=== PATIENT | female | born 1935 | race Caucasian/White ===

== ENCOUNTER → 2018-04-04 14:21 | Outpatient (CLI) | payer MEDICARE, BC, SELFPAY ==
[2018-04-04 15:39] LABS: Add Manual Diff / Slide Review NO; Eosinophils Percent Auto 1.4 % (2-4); Hematocrit 36.3 % (36-46); Hemoglobin 11.7 g/dL (12.0-16.0); Lymphocytes Percent Auto 14.7 % (25-40); Mean Corpuscular HGB Conc 32.3 % (30-36); Mean Corpuscular Hemoglobin 28.9 PG (26-34); Mean Corpuscular Volume 89.6 fL (80-100); Monocytes Percent Auto 7.7 % (3-14); Neutrophils Absolute Auto 4500 /uL (3000-5900); Neutrophils Percent Auto 75.2 % (50-75); Platelet Count 313 X10^3/uL (150-400); Red Blood Cell Count 4.05 X10^6/uL (4.0-5.2)
[2018-04-04 15:40] LABS: Alanine Aminotransferase 45 IU/L (9-52); Albumin 3.7 g/dL (3.5-5.0); Albumin Globulin Ratio 1.5 (1.0-2.8); Alkaline Phosphatase 93 U/L (38-126); Aspartate Aminotransferase 33 IU/L (14-36); Bilirubin Total 0.6 mg/dL (0.2-1.3); Blood Urea Nitrogen 13 mg/dL (7-17); Calcium 8.9 mg/dL (8.4-10.2); Carbon Dioxide 29 mmol/L (22-32); Chloride 96 mmol/L (98-107); Estimated Glomerular Filt Rate > 60.0 mL/min (>60); Globulin 2.4 g/dL (1.7-4.1); Glucose 74 mg/dL (80-110); HEMOLYSIS 17 (0-50); Potassium 4.8 mmol/L (3.4-5.1); Sodium 134 mmol/L (137-145); Total Protein 6.1 g/dL (6.3-8.2)
== END ==
PROVIDERS: Family Provider Physician Assistant; PCP Physician Assistant; Visit Provider Physician Assistant
DX: E78.5 Hyperlipidemia, unspecified (principal); F17.220 Nicotine dependence, chewing tobacco, uncomplicated; I10 Essential (primary) hypertension; I25.3 Aneurysm of heart; Q25.3 Supravalvular aortic stenosis
CPT/HCPCS: 36415; 80053; 85025

== ENCOUNTER 2018-04-11 14:16 | Emergency (ER) | payer MEDICARE, BC, SELFPAY ==
[2018-04-11 14:22] VITALS: BP 110/50; PULSE 72; RESP 20; TEMP 36.4; O2SAT 95; BMI 20.3
--- NOTE | 2018-04-11 15:10 | DI.RAD.S_ITS ---
PROCEDURE: XR CHEST 1V INDICATIONS: chest pain TECHNIQUE: One view of the chest was acquired. COMPARISON: [facility], , CHEST 2 VIEW, 12/26/2012, 16:07. [facility], , CHEST 1 VIEW, 08/16/2016, 17:09. FINDINGS: Surgical changes and devices: None. Lungs and pleura: Chronic interstitial prominence. Left basilar opacities likely scar or atelectasis. No pleural effusions or pneumothorax. Mediastinum: Mediastinal contours appear normal. Heart size is normal. Severe aortic atherosclerosis. Bones and chest wall: No suspicious bony lesions. Overlying soft tissues appear unremarkable. IMPRESSION: No acute cardiopulmonary disease. Dictated by: Fany Jacobo M.D. on 04/11/2018 at 15:55 Approved by: Fany Jacobo M.D. on 04/11/2018 at 15:56
--- NOTE | 2018-04-11 15:19 | ED_ITS ---
HPI - Chest Pain General Chief Complaint: Chest Pain Stated Complaint: PAIN WITH BREATHING Time Seen by Provider: 04/11/18 14:45 Source: patient and family Mode of arrival: ambulatory Limitations: no limitations History of Present Illness HPI narrative: Patient is a 82-year-old female who presents with abdominal pain and chest pain ongoing for the last 2 days. She says that her chest pain starts in her abdomen goes up to her chest. It hurts every time she touches it. It seems to be improving and getting better. She has been having some shortness of breath but denies any now. No heart palpitations no nausea vomiting. She has stool incontinence, her niece noticed that when she was taking out the trash the stool was very black for which he is on aspirin. MD complaint: chest pain Related Data Home Medications Medication Instructions Recorded Confirmed aspirin 81 mg PO DAILY #0 10/10/16 04/11/18 diltiazem HCl 300 mg PO DAILY 04/11/18 04/11/18 lisinopril 2.5 mg PO DAILY 04/11/18 04/11/18 vit C,W-Bm-ehreb-lutein-zeaxan 1 cap PO BID 04/11/18 04/11/18 [PreserVision AREDS-2] Allergies Allergy/AdvReac Type Severity Reaction Status Date / Time diazepam [DIAZEPAM] AdvReac Severe loses Verified 04/11/18 14:28 balance easily azithromycin [AZITHROMYCIN] AdvReac Intermediate Fatigue, Verified 04/11/18 14: 28 felt run down Review of Systems Review of Systems All systems reviewed & are unremarkable except as noted in HPI and below Constitutional Denies chills, Denies fever(s), Denies lethargy and Denies weakness Cardiovascular Denies dyspnea and Denies dyspnea on exertion Respiratory Denies cough, Denies dyspnea, Denies dyspnea on exertion and Denies wheezing Gastrointestinal Gastrointestinal: Reports abdominal pain, Denies change in bowel habits, Reports loose stools, Denies nausea and Denies vomiting Genitourinary Denies hematuria, Denies flank pain, Denies urinary incontinence and Denies urinary urgency Musculoskeletal Denies back pain, Denies muscle weakness, Denies numbness and Denies tingling Integumentary/Breasts Denies pruritus, Denies erythema, Denies rash and Denies wounds Neurologic Denies numbness, Denies tingling and Denies weakness Allergic/Immunologic Denies wheezing PFSH Medical History Vascular dementia (Chronic) Stenosis of aorta (Chronic 12/28/10) Atrial septal aneurysm (Chronic 07/06/15) Essential hypertension (Chronic 07/05/16) Hyperlipidemia (Chronic) Atrial fibrillation with RVR (Chronic) Current smoker (Chronic) Chronic obstructive pulmonary disease (Chronic) Aortic stenosis (Acute) Atrial fibrillation (Acute) Atrial septal aneurysm (Acute) COPD (chronic obstructive pulmonary disease) (Acute) Essential hypertension (Acute) Hyperlipidemia (Acute) Macular degeneration (Acute) Memory deficit (Acute) Smoker (Acute) Abdominal bruit (Inactive) Aortic valve disorder (Inactive) Carotid bruit (Inactive) Heart murmur (Inactive) History of chicken pox (Inactive) History of measles (Inactive) History of mumps (Inactive) Leukoplakia (Inactive) Sebaceous cyst of labia (Inactive) Seborrheic keratosis (Inactive) Surgical History History of sinus surgery (Inactive) Family History Brother Diabetes mellitus Heart disease Social History Smoking Status: Current every day smoker Tobacco: How many years used: 60 second hand exposure: No alcohol intake: never substance use type: does not use caffeine: No Exam Initial Vital Signs Initial Vital Signs: Vital Signs Temperature 97.6 F 04/11/18 14:22 Pulse Rate 72 04/11/18 14:22 Respiratory Rate 20 04/11/18 14:22 Blood Pressure 110/50 L 04/11/18 14:22 Pulse Oximetry 95 04/11/18 14:22 GENERAL: Well-appearing, well-nourished and in no acute distress. HEENT: Head atraumatic,EOMI, pupils reactive CARDIOVASCULAR: Regular rate and rhythm without murmurs, rubs or gallops. RESPIRATORY: Breath sounds equal bilaterally, no wheezes rales or rhonchi. ABDOMEN: Soft, hyperactive bowel sounds mid epigastric an umbilical tenderness no right upper quadrant pain no guarding or rebound EXTREMITIES: Normal range of motion, no clubbing or edema. Neurovascularly intact NEUROLOGICAL: Alert and oriented x4.Normal gait and speec SKIN: Warm, dry, no laceration, no petechiae, no rashes or lesions. Course Orders Ordered: ED Orders 04/11/18 14:37 EKG-12 Lead Stat 04/11/18 14:42 Complete Blood Count AUTO DIFF Stat Comprehensive Metabolic Panel Stat Lipase Stat Partial Thromboplastin Time Stat Prothrombin Time INR Stat Troponin & CK Cardiac Panel Stat 04/11/18 15:10 XR chest 1V Stat 04/11/18 16:05 CT abdomen pelvis w con Stat Discontinued Medications Sodium Chloride (Normal Saline 0.9%) 1,000 mls @ 150 mls/hr IV CONT JOANN Last Infusion: 04/11/18 17:05 Dose: 0 mls/hr Admin: 04/11/18 15:57 Dose: 150 mls/hr Pantoprazole Sodium (Protonix) 40 mg IV NOW ONE Stop: 04/11/18 15:10 Last Admin: 04/11/18 15:57 Dose: 40 mg Vital Signs - 8 hr 04/11/18 14:22 04/11/18 16:25 Temperature 97.6 F Pulse Rate 72 57 L Respiratory Rate 20 17 Blood Pressure 110/50 L Blood Pressure [Left Arm] 154/55 H Pulse Oximetry 95 92 MDM - Chest Pain Lab Data Attestation: I reviewed the patient's lab results. Result diagrams: 04/11/18 14:42 04/11/18 14:42 Lab Results 04/11/18 04/11/18 04/11/18 Range/Units 14:42 14:42 14:42 WBC 5.9 (4.5-11.0) X10^3/uL RBC 3.82 L (4.0-5.2) X10^6/uL Hgb 11.3 L (12.0-16.0) g/dL Hct 33.8 L (36-46) % MCV 88.4 (80-100) fL MCH 29.6 (26-34) PG MCHC 33.5 (30-36) % RDW 14.9 H (11.6-14.8) % Plt Count 286 (150-400) X10^3/uL Neut % (Auto) 76.7 H (50-75) % Lymph % (Auto) 15.0 L (25-40) % [place] % (Auto) 7.0 (3-14) % Eos % (Auto) 0.5 L (2-4) % Baso % (Auto) 0.8 (0-2) % Neut # (Auto) 4600 (0896-6945) /uL PT 11.1 (10.1-12.7) SECONDS INR 1.0 (0.9-1.3) APTT 29 (26.4-36.2) SECONDS Sodium 134 L (137-145) mmol/L Potassium 4.4 (3.4-5.1) mmol/L Chloride 97 L (98-107) mmol/L Carbon Dioxide 26 (22-32) mmol/L BUN 17 (7-17) mg/dL Creatinine 0.70 (0.52-1.04) mg/dL Estimated GFR > 60.0 (>60) mL/min BUN/Creatinine Ratio 24.3 H (6-22) Glucose 181 H D (80-110) mg/dL Calcium 8.6 (8.4-10.2) mg/dL Total Bilirubin 0.6 (0.2-1.3) mg/dL AST 36 (14-36) IU/L ALT 35 (9-52) IU/L Alkaline Phosphatase 78 (38-126) U/L Total Creatine Kinase 53 (30-135) U/L CK-MB (CK-2) TNP CK-MB (CK-2) Rel Index TNP Troponin I < 0.012 (0.01-0.034) ng/mL Total Protein 5.9 L (6.3-8.2) g/dL Albumin 3.6 (3.5-5.0) g/dL Globulin 2.3 (1.7-4.1) g/dL Albumin/Globulin Ratio 1.6 (1.0-2.8) Lipase 48 (23-300) U/L Imaging Data Chest x-ray: Radiologist's impression: PROCEDURE: XR CHEST 1V INDICATIONS: chest pain TECHNIQUE: One view of the chest was acquired. COMPARISON: [facility], CHEST 2 VIEW, 12/26/2012, 16:07. [facility], CHEST 1 VIEW, 08/16/2016, 17:09. FINDINGS: Surgical changes and devices: None. Lungs and pleura: Chronic interstitial prominence. Left basilar opacities likely scar or atelectasis. No pleural effusions or pneumothorax. Mediastinum: Mediastinal contours appear normal. Heart size is normal. Severe aortic atherosclerosis. Bones and chest wall: No suspicious bony lesions. Overlying soft tissues appear unremarkable. IMPRESSION: No acute cardiopulmonary disease. Dictated by: Fany Jacobo M.D. on 04/11/2018 at 15:55 CT scan - abdomen: Radiologist's impression: ROCEDURE: CT ABDOMEN PELVIS W CON INDICATIONS: abdominal pain mid umbilical and epigastric TECHNIQUE: After the administration of intravenous contrast, 5 mm thick sections acquired from the diaphragm to the symphysis. 5 mm coronal and sagittal reformats were acquired. For radiation dose reduction, the following was used: automated exposure control, adjustment of mA and/or kV according to patient size. COMPARISON: None. FINDINGS: Image quality: Excellent. ABDOMEN: Lung bases: Mild bibasilar scarring/atelectasis are seen posteriorly. No pleural effusion or pneumothorax. Heart size is mildly enlarged, no pericardial effusion. Solid organs: Liver is normal in size and enhancement. 3 mm hypodensity involving inferior right hepatic lobe is seen, too small to characterize. Gallbladder is well distended with a 1.8 x 1.4 cm peripherally calcified stone in its dependent portion. No gross gallbladder wall thickening or pericholecystic fluid.. Biliary system is non dilated. Pancreas enhances normally. Spleen is normal in size and enhancement. No adrenal nodules. Kidneys demonstrate normal size and enhancement, without hydronephrosis. Bilateral cortical and parapelvic renal cysts are seen. Peritoneum and bowel: Bowel loops demonstrate normal wall thickness and caliber. Fecal stasis throughout colon is noted. The appendix is visualized in right lower quadrant abdomen and is normal in size and appearance. No free fluid or air. Nodes and vessels: No retroperitoneal or mesenteric adenopathy by size criteria. Aorta and inferior vena cava are normal in size. Atherosclerotic calcifications throughout normal aorta is seen. Miscellaneous: No ventral hernias. PELVIS: Genitourinary: Mild diffuse bladder wall thickening is seen, no discrete bladder wall mass. Miscellaneous: No inguinal hernias or adenopathy. Bones: No suspicious bony lesions. No vertebral body compression fractures. IMPRESSION: 1. Constipation. Normal appendix. No bowel obstruction. No free fluid or free air. 2. Cholelithiasis. No CT evidence of acute cholecystitis. 3. Mild diffuse bladder wall thickening, which may represent cystitis versus chronic outlet obstruction. No discrete bladder wall mass. No obstructing renal stone or hydronephrosis. Bilateral renal cysts. Dictated by: Wilberto Padilla M.D. on 04/11/2018 at 16:24 Approved by: Wilberto Padilla M.D. on 04/11/2018 at 16:32 ECG Data Attestation: I personally reviewed and interpreted this ECG as follows: Prior ECG tracings: available for review Interpretation: Normal sinus rhythm rate [address] changes or T-wave inversions previous EKG does show atrial fibrillation. MDM Narrative Medical decision making narrative: Abdomen was tender to touch it is re- examined no longer tender. She does have loose stools according to her niece. CT does show constipation but no sign of obstruction. Blood work within normal limits. She is ambulatory to the restroom she overall feels better she is wanting to go home. I discussed results is with patient and family. Chest pain may be related to AFib which she is now in sinus rhythm, or acid reflux. She was given some Protonix which did seem to help. Discharge Plan Departure Patient Disposition: Home Clinical Impression: Constipation, Atypical chest pain Discharge Date/Time: 04/11/18 17:04 Interventions: ED Discharge Assessment Last Done: 04/11/18 17:04 Instructions: Constipation Activity Restrictions/Additional Instructions: *You have been diagnosed with constipation, atypical chest pain *What to do: Blood work, cat scan, chest x-ray are reassuring. CT scan did suggest some constipation but no sign of obstruction normal appendix *Continue to take medications as directed *Follow up with your primary care provider in 2-3 days *Return to ER if you should have increasing pain, shortness of breath, passing out or any new, worsening or concerning symptoms Prescriptions: No Action aspirin 81 MG tablet,chewable 81 mg PO DAILY Qty: 0 RF: 0 diltiazem HCl 300 mg capsule,extended release 24hr 300 mg PO DAILY RF: 0 lisinopril 2.5 mg tablet 2.5 mg PO DAILY RF: 0 vit C,V-Wo-zjhwp-lutein-zeaxan [PreserVision AREDS-2] 578-285-58-1 mg-unit-mg- mg Capsule 1 cap PO BID RF: 0 Referrals: Evie Kim PA-C [Primary Care Provider] -
[2018-04-11 15:27] LABS: Add Manual Diff / Slide Review NO; Basophils Percent Auto 0.8 % (0-2); Eosinophils Percent Auto 0.5 % (2-4); Hematocrit 33.8 % (36-46); Hemoglobin 11.3 g/dL (12.0-16.0); Mean Corpuscular HGB Conc 33.5 % (30-36); Mean Corpuscular Hemoglobin 29.6 PG (26-34); Mean Corpuscular Volume 88.4 fL (80-100); Neutrophils Absolute Auto 4600 /uL (3000-5900); Neutrophils Percent Auto 76.7 % (50-75); Platelet Count 286 X10^3/uL (150-400); Red Blood Cell Count 3.82 X10^6/uL (4.0-5.2); Red Cell Distribution Width 14.9 % (11.6-14.8); White Blood Cell Count 5.9 X10^3/uL (4.5-11.0)
[2018-04-11 15:28] LABS: Prothrombin Time 11.1 SECONDS (10.1-12.7)
[2018-04-11 15:31] LABS: PTT Partial Thromboplastin Tim 29 SECONDS (26.4-36.2)
[2018-04-11 15:32] LABS: Alanine Aminotransferase 35 IU/L (9-52); Albumin 3.6 g/dL (3.5-5.0); Albumin Globulin Ratio 1.6 (1.0-2.8); Alkaline Phosphatase 78 U/L (38-126); Aspartate Aminotransferase 36 IU/L (14-36); BUN Creatinine Ratio 24.3 (6-22); Bilirubin Total 0.6 mg/dL (0.2-1.3); Blood Urea Nitrogen 17 mg/dL (7-17); Calcium 8.6 mg/dL (8.4-10.2); Carbon Dioxide 26 mmol/L (22-32); Chloride 97 mmol/L (98-107); Creatine Kinase 53 U/L (30-135); Estimated Glomerular Filt Rate > 60.0 mL/min (>60); Globulin 2.3 g/dL (1.7-4.1); Glucose 181 mg/dL (80-110); HEMOLYSIS < 15 (0-50); Lipase 48 U/L (23-300); Potassium 4.4 mmol/L (3.4-5.1); Sodium 134 mmol/L (137-145); Total Protein 5.9 g/dL (6.3-8.2)
[2018-04-11 15:48] LABS: Troponin I < 0.012 ng/mL (0.01-0.034)
[2018-04-11] MEDS: SODIUM CHLORIDE 0.9% 1,000 ML 150 ML IV (15:57)
[2018-04-11] MEDS: PANTOPRAZOLE 40 MG VIAL IV (15:57)
--- NOTE | 2018-04-11 16:05 | DI.CT.S_ITS ---
PROCEDURE: CT ABDOMEN PELVIS W CON INDICATIONS: abdominal pain mid umbilical and epigastric TECHNIQUE: After the administration of intravenous contrast, 5 mm thick sections acquired from the diaphragm to the symphysis. 5 mm coronal and sagittal reformats were acquired. For radiation dose reduction, the following was used: automated exposure control, adjustment of mA and/or kV according to patient size. COMPARISON: None. FINDINGS: Image quality: Excellent. ABDOMEN: Lung bases: Mild bibasilar scarring/atelectasis are seen posteriorly. No pleural effusion or pneumothorax. Heart size is mildly enlarged, no pericardial effusion. Solid organs: Liver is normal in size and enhancement. 3 mm hypodensity involving inferior right hepatic lobe is seen, too small to characterize. Gallbladder is well distended with a 1.8 x 1.4 cm peripherally calcified stone in its dependent portion. No gross gallbladder wall thickening or pericholecystic fluid.. Biliary system is non dilated. Pancreas enhances normally. Spleen is normal in size and enhancement. No adrenal nodules. Kidneys demonstrate normal size and enhancement, without hydronephrosis. Bilateral cortical and parapelvic renal cysts are seen. Peritoneum and bowel: Bowel loops demonstrate normal wall thickness and caliber. Fecal stasis throughout colon is noted. The appendix is visualized in right lower quadrant abdomen and is normal in size and appearance. No free fluid or air. Nodes and vessels: No retroperitoneal or mesenteric adenopathy by size criteria. Aorta and inferior vena cava are normal in size. Atherosclerotic calcifications throughout normal aorta is seen. Miscellaneous: No ventral hernias. PELVIS: Genitourinary: Mild diffuse bladder wall thickening is seen, no discrete bladder wall mass. Miscellaneous: No inguinal hernias or adenopathy. Bones: No suspicious bony lesions. No vertebral body compression fractures. IMPRESSION: 1. Constipation. Normal appendix. No bowel obstruction. No free fluid or free air. 2. Cholelithiasis. No CT evidence of acute cholecystitis. 3. Mild diffuse bladder wall thickening, which may represent cystitis versus chronic outlet obstruction. No discrete bladder wall mass. No obstructing renal stone or hydronephrosis. Bilateral renal cysts. Dictated by: Wilberto Padilla M.D. on 04/11/2018 at 16:24 Approved by: Wilberto Padilla M.D. on 04/11/2018 at 16:32
[2018-04-11 16:25] VITALS: BP 154/55; PULSE 57; RESP 17; O2SAT 92
== END 2018-04-11 17:04 | disposition home or self-care (01) ==
PROVIDERS: Emergency Provider Emergency Medicine; Family Provider Physician Assistant; PCP Physician Assistant
DX: K59.00 Constipation, unspecified (principal); R07.89 Other chest pain
CPT/HCPCS: 36591; 71045; 74177; 80053; 82550; 83690; 84484; 85025; 85610; 85730; 93005; 93010; 96361; 96374; 99283; 99285; C9113

== ENCOUNTER 2018-04-12 19:56 | Emergency (ER) | payer MEDICARE, BC, SELFPAY ==
--- NOTE | 2018-04-12 20:02 | ED.CHESTPAIN ---
HPI - Chest Pain <Tricia Landrum PA-C - Last Filed: 04/12/18 22:23> General Chief Complaint: Chest Pain Stated Complaint: SENT FROM WALK IN CLINIC Time Seen by Provider: 04/12/18 19:57 Source: patient and family Mode of arrival: ambulatory Limitations: no limitations History of Present Illness HPI narrative: this 82-year-old female is sent from the walk-in clinic for further evaluation of recurrent chest pain. She was seen here yesterday for this and seemed to be having some abdominal pain as well at the time. She was having tenderness to touch. She has not had any recurrent abdominal pain however her niece who accompanies her states that Meghna was having some chest pain earlier this morning which seemed to improve after ibuprofen and application of ice pack. She takes ibuprofen occasionally for pain but not regularly. The patient herself states that she left the house this evening and was feeling fine. She states that they had gone out to dinner. She does not quite remember what happened and states that she had gone outside of the restaurant and may have bumped her chest on the corner of a wall when she stumbled a little bit. She states that she has not had any other injury, no recent fall. when she recalls this she cannot remember whether she stumbled last night or earlier this evening. Her niece had called her primary care clinic to let them know about the continued chest pain and she was advised to go to the walk-in clinic, which she did this evening. She was unable to lie flat there to get an EKG due to the pain so was sent here. Patient states that her chest is tender to touch. She has a lot more pain with lying flat, better with sitting up, but also hurts with movement and cough. She is not short of breath. Denies palpitations, abdominal pain or vomiting. Patient has dementia. Her niece September checks on her daily and states that patient has been having some pain since Monday however the bruising just started to show up yesterday and is worse today, she is not sure whether any new trauma but states patient is normal as far as her behavior and mentation. Related Data Home Medications Medication Instructions Recorded Confirmed aspirin 81 mg PO DAILY #0 10/10/16 04/12/18 diltiazem HCl 300 mg PO DAILY 04/11/18 04/12/18 lisinopril 2.5 mg PO DAILY 04/11/18 04/12/18 vit C,Y-Is-zyllv-lutein-zeaxan 1 cap PO BID 04/11/18 04/12/18 [PreserVision AREDS-2] Allergies Allergy/AdvReac Type Severity Reaction Status Date / Time diazepam [DIAZEPAM] AdvReac Severe loses Verified 04/12/18 18:56 balance easily azithromycin [AZITHROMYCIN] AdvReac Intermediate Fatigue, Verified 04/12/18 18:56 felt run down Review of Systems <Tricia Landrum PA-C - Last Filed: 04/12/18 22:23> Review of Systems All systems reviewed & are unremarkable except as noted in HPI and below Exam <Tricia Landrum PA-C - Last Filed: 04/12/18 22:23> Narrative Exam Narrative: GENERAL APPEARANCE: Patient sitting comfortably, in no distress. NECK/THYROID: Neck supple, no JVD. LUNGS: Clear to auscultation bilaterally. CHEST: She has a yellow to purple patch of ecchymoses central sternum with some underlying localized edema which is very tender. No tenderness elsewhere over the ribs or sternum. Tender with full shoulder external rotation, trunk extension and rotation and other movements that stress the chest wall HEART: Regular rate and rhythm with II/ systolic murmur, normal S1, S2, no S3 or S4. ABDOMEN: Soft, NT, ND, + BS x 4 quadrants EXTREMITIES: mild edema bilaterally, no calf tenderness NEUROLOGIC: Alert, unable to provide details of medical history, speech is fluent Initial Vital Signs Initial Vital Signs: Vital Signs Temperature 97.7 F 04/12/18 20:14 Pulse Rate 66 04/12/18 20:14 Respiratory Rate 18 04/12/18 20:14 Blood Pressure 178/58 H 04/12/18 20:14 Pulse Oximetry 90 L 04/12/18 20:14 <Miguel Copeland DO - Last Filed: 04/12/18 22:45> Initial Vital Signs Initial Vital Signs: Vital Signs Temperature 97.7 F 04/12/18 20:14 Pulse Rate 66 04/12/18 20:14 Respiratory Rate 18 04/12/18 20:14 Blood Pressure 178/58 H 04/12/18 20:14 Pulse Oximetry 90 L 04/12/18 20:14 Course <Tricia Landrum PA-C - Last Filed: 04/12/18 22:23> Additional Information: the patient is feeling better prior to departure. She clearly had a sternal contusion at some point, bruising was starting to show by yesterday. No other new findings on evaluation today. (She does have likely old T11/12 fx on XR today and has known osteopenia). If she did have a fracture of the sternum, it would have likely been found on CT yesterday. we talked about using additional pain medication if she needs, and the importance of her being able to take deep breaths comfortably and rest. Her niece Petra will be able to stay with her tonight and monitor, so I did give her a prepack of [place] to try if needed. Petra agreed to have her return if any acutely worsening symptoms. Otherwise, advised call PCP office 1st thing in the morning and preferably follow-up tomorrow Orders Ordered: ED Orders 04/12/18 20:18 XR chest 2V Stat EKG-12 Lead Stat Discontinued Medications Hydrocodone Bitart/Acetaminophen (Vicodin Prepack) 1 bottle MISC SEEINSTR ONE Stop: 04/12/18 21:46 Last Admin: 04/12/18 22:00 Dose: 1 bottle Ibuprofen (Advil) 400 mg PO NOW ONE Stop: 04/12/18 20:19 Last Admin: 04/12/18 20:34 Dose: 400 mg Vital Signs - 8 hr 04/12/18 20:14 04/12/18 21:14 Temperature 97.7 F Pulse Rate 66 59 L Respiratory Rate 18 17 Blood Pressure 178/58 H Blood Pressure [Left Arm] 170/52 H Pulse Oximetry 90 L 95 <Miguel Copeland DO - Last Filed: 04/12/18 22:45> Orders Ordered: ED Orders 04/12/18 20:18 XR chest 2V Stat EKG-12 Lead Stat Discontinued Medications Hydrocodone Bitart/Acetaminophen (Vicodin Prepack) 1 bottle MISC SEEINSTR ONE Stop: 04/12/18 21:46 Last Admin: 04/12/18 22:00 Dose: 1 bottle Ibuprofen (Advil) 400 mg PO NOW ONE Stop: 04/12/18 20:19 Last Admin: 04/12/18 20:34 Dose: 400 mg Vital Signs - 8 hr 04/12/18 20:14 04/12/18 21:14 Temperature 97.7 F Pulse Rate 66 59 L Respiratory Rate 18 17 Blood Pressure 178/58 H Blood Pressure [Left Arm] 170/52 H Pulse Oximetry 90 L 95 MDM - Chest Pain <Tricia Landrum PA-C - Last Filed: 04/12/18 22:23> Imaging Data Chest x-ray: Radiologist's impression: 28 Tricia Landrum PA-C Find Patient Imaging ACTIVITY DATE EXAM STATUS AUTHOR 04/12/18 20:18 Signed Brett Jacobo ~ [address] [address] XRay Report Signed Patient: Meghna Sheldon EMR#: [id number] : 6Acct:[id number] Age/Sex: 82 / FDate of Service: 04/12/18 Loc: ED Accession Number: [id number] Procedure: XR chest 2V Ordering Provider: Tricia Landrum P.A-C PROCEDURE: XR CHEST 2V INDICATIONS: pain, sternal hematoma TECHNIQUE: 2 views of the chest were acquired. COMPARISON: [facility], CR, CHEST 1 VIEW, 08/16/2016, 17:09. [facility], CR, CHEST 2 VIEW, 12/26/2012, 16:07. [facility], CT, CT ABDOMEN PELVIS W CON, 04/11/2018, 16:07. [facility], CR, XR CHEST 1V, 04/11/2018, 15:27. FINDINGS: Surgical changes and devices: None. Lungs and pleura: Diffuse interstitial infiltrates, suggesting pulmonary edema secondary to congestive heart failure. No pleural effusions or pneumothorax. Lungs are clear. Mediastinum: Mediastinal contours are normal. Heart size is normal. Bones and chest wall: Severe compression fracture of T11 and T12, likely non-acute. Soft tissues appear unremarkable. IMPRESSION: 1. Suspect mild congestive heart failure. 2. No definitive sternal fracture. If clinical suspicion is high, CT is recommended for further evaluation. 3. Severe compression fracture of T11 and T12, probably non--acute. Dictated by: Fany Jacobo M.D. on 04/12/2018 at 20:32 Approved by: Fany Jacobo M.D. on 04/12/2018 at 20:35 ECG Data Attestation: I personally reviewed and interpreted this ECG as follows: ( Sinus bradycardia with rate 55, no ectopy or acute ST changes) Prior ECG tracings: not available for review Discharge Plan Departure Patient Disposition: Home Clinical Impression: Contusion of sternum, Sternal pain Discharge Date/Time: 04/12/18 22:05 Interventions: ED Discharge Assessment Last Done: 04/12/18 22:03 Instructions: DI for Rib Contusion Activity Restrictions/Additional Instructions: Please take ibuprofen 2 tablets every 8 hr to help with your pain. I have given you a few stronger pain pills (hydrocodone with acetaminophen ) to try for more severe pain. You can start with 1/2 tablet if you would like, and you can take up to 2 tablets every 6 hr. Please remember that these can make you sleepy. If you take them on a regular basis, they can also cause constipation so you may want to take a stool softener. Please remember that any time you cough, take deep breaths or do movements that stretch your rib cage area, this puts pressure on the bruised part of your breast bone. It is important that you control your pain so that you can rest and take deep breaths and keep your lungs expanded. It is okay to sleep propped up if that feels better. You should return as we talked about if you have any acutely worsening symptoms. Please call your primary care office 1st thing tomorrow morning and let them know you were seen in the emergency room again today. We would like to have the follow-up tomorrow to assess your progress and see whether you should continue the same pain medicine or if other treatments may be needed. Prescriptions: No Action aspirin 81 MG tablet,chewable 81 mg PO DAILY Qty: 0 RF: 0 diltiazem HCl 300 mg capsule,extended release 24hr 300 mg PO DAILY RF: 0 lisinopril 2.5 mg tablet 2.5 mg PO DAILY RF: 0 vit C,I-It-ehiqk-lutein-zeaxan [PreserVision AREDS-2] [id number] go-omqv-vb-mg Capsule 1 cap PO BID RF: 0 Referrals: Evie Kim PA-C [Primary Care Provider] - <Miguel Copeland DO - Last Filed: 04/12/18 22:45> Cosign ED Attending Petersonature Attestation: I was available for consultation during this patient's emergency department encounter
[2018-04-12 20:14] VITALS: BP 178/58; PULSE 66; RESP 18; TEMP 36.5; O2SAT 90
--- NOTE | 2018-04-12 20:18 | DI.RAD.S_ITS ---
PROCEDURE: XR CHEST 2V INDICATIONS: pain, sternal hematoma TECHNIQUE: 2 views of the chest were acquired. COMPARISON: [facility], CR, CHEST 1 VIEW, 08/16/2016, 17:09. [facility], CR, CHEST 2 VIEW, 12/26/2012, 16:07. [facility], CT, CT ABDOMEN PELVIS W CON, 04/11/2018, 16:07. [facility], CR, XR CHEST 1V, 04/11/2018, 15:27. FINDINGS: Surgical changes and devices: None. Lungs and pleura: Diffuse interstitial infiltrates, suggesting pulmonary edema secondary to congestive heart failure. No pleural effusions or pneumothorax. Lungs are clear. Mediastinum: Mediastinal contours are normal. Heart size is normal. Bones and chest wall: Severe compression fracture of T11 and T12, likely non-acute. Soft tissues appear unremarkable. IMPRESSION: 1. Suspect mild congestive heart failure. 2. No definitive sternal fracture. If clinical suspicion is high, CT is recommended for further evaluation. 3. Severe compression fracture of T11 and T12, probably non--acute. Dictated by: Fany Jacobo M.D. on 04/12/2018 at 20:32 Approved by: Fany Jacobo M.D. on 04/12/2018 at 20:35
[2018-04-12] MEDS: IBUPROFEN 400 MG TABLET PO (20:34)
[2018-04-12 21:14] VITALS: BP 170/52; PULSE 59; RESP 17; O2SAT 95
[2018-04-12] MEDS: HYDROCODONE/ACET 5/325 PREPACK 1 BOTTLE MISC (22:00)
== END 2018-04-12 22:05 | disposition home or self-care (01) ==
PROVIDERS: Emergency Provider Internal Medicine; Family Provider Physician Assistant; PCP Physician Assistant
DX: S20.20XA Contusion of thorax, unspecified, initial encounter (principal); R07.89 Other chest pain; W22.8XXA Striking against or struck by other objects, initial encounter
CPT/HCPCS: 71046; 93005; 93010; 99282; 99284

== ENCOUNTER → 2018-06-14 08:37 | Outpatient (CLI) | payer MEDICARE, BC, SELFPAY ==
[2018-06-14 09:32] LABS: Add Manual Diff / Slide Review NO; Basophils Absolute Auto 0 /uL (0-100); Basophils Percent Auto 0.6 % (0-2); Eosinophils Absolute Auto 100 /uL (0-450); Eosinophils Percent Auto 1.6 % (2-4); Hemoglobin 12.3 g/dL (12.0-16.0); Hemoglobin A1C% w Est Avg Glu 5.5 % (4.0-6.0); Lymphocytes Absolute Auto 1000 /uL (1100-4500); Lymphocytes Percent Auto 13.7 % (25-40); Mean Corpuscular HGB Conc 33.2 % (30-36); Mean Corpuscular Hemoglobin 28.6 PG (26-34); Mean Corpuscular Volume 86.3 fL (80-100); Monocytes Absolute Auto 600 /uL (0-900); Monocytes Percent Auto 8.5 % (3-14); Neutrophils Absolute Auto 5600 /uL (1500-7000); Neutrophils Percent Auto 75.6 % (50-75); Platelet Count 348 X10^3/uL (150-400); Red Blood Cell Count 4.29 X10^6/uL (4.0-5.2); Red Cell Distribution Width 14.4 % (11.6-14.8); White Blood Cell Count 7.4 X10^3/uL (4.5-11.0)
[2018-06-14 10:03] LABS: Alanine Aminotransferase 38 IU/L (9-52); Albumin 3.8 g/dL (3.5-5.0); Albumin Globulin Ratio 1.4 (1.0-2.8); Alkaline Phosphatase 102 U/L (38-126); Aspartate Aminotransferase 35 IU/L (14-36); Bilirubin Total 0.8 mg/dL (0.2-1.3); Blood Urea Nitrogen 15 mg/dL (7-17); Calcium 8.9 mg/dL (8.4-10.2); Carbon Dioxide 31 mmol/L (22-32); Chloride 96 mmol/L (98-107); Estimated Glomerular Filt Rate > 60.0 mL/min (>60); Globulin 2.8 g/dL (1.7-4.1); Glucose 92 mg/dL (80-110); HEMOLYSIS < 15 (0-50); Potassium 4.9 mmol/L (3.4-5.1); Sodium 135 mmol/L (137-145); Total Protein 6.6 g/dL (6.3-8.2)
[2018-06-14 10:47] LABS: Vitamin D 25 Hydroxy (D3) 31.9 ng/mL (30.0-100.0)
[2018-06-14 10:51] LABS: Vitamin B12 986 pg/mL (239-931)
== END ==
PROVIDERS: PCP Physician Assistant; Visit Provider Physician Assistant
DX: R06.00 Dyspnea, unspecified (principal); R53.83 Other fatigue; R73.09 Other abnormal glucose; M81.0 Age-related osteoporosis without current pathological fracture
CPT/HCPCS: 36415; 80053; 82306; 82607; 83036; 85025

== ENCOUNTER 2018-08-12 09:56 | Inpatient (IN) | payer BC, MEDICARE, SELFPAY ==
[2018-08-12] VITALS (10 sets, daily range): BP systolic 108–170; BP diastolic 49–66; PULSE 78–116; RESP 14–24; TEMP 36.3–37; O2SAT 90–97; BMI 19.3
--- NOTE | 2018-08-12 11:30 | PC.NURSE ---
Patient was taken to Radiology for her 2 view chest x-ray. Per x-ray tech, patient unable to tolerate sitting up, secondary to pain. States let me , let me , let me . Provider aware.
--- NOTE | 2018-08-12 11:43 | PC.NURSE ---
Patient lying on right side, stating over and over I want to . States she is in too much pain to live right now. States today she got up to go to bathroom and was walking back and sat down and was in pain, reached her arm out and fell to ground. Now having increased pain in left side area, worsened significantly with movement, palpation and deep breaths/coughs. Unable to tolerate x-ray. Lives alone and is relatively active. Family lives 2 blocks away. Also had a fall earlier this week, per daughter. Has hx of chronic back pain.
--- NOTE | 2018-08-12 12:52 | DI.CT.S_ITS ---
PROCEDURE: CT HEAD/BRAIN WO CON INDICATIONS: glf TECHNIQUE: Noncontrast 4.5 mm thick angled axial sections acquired from the foramen magnum to the vertex, with coronal and sagittal reformats. For radiation dose reduction, the following was used: automated exposure control, adjustment of mA and/or kV according to patient size. COMPARISON: None. FINDINGS: Image quality: Excellent. CSF spaces: Basal cisterns are patent. No extra-axial fluid collections. The ventricles are symmetric in size and shape. Brain: No intracranial bleeds or masses. There is cerebral volume loss for age, with resultant ventricular and sulcal prominence. There are periventricular and deep white matter chronic small vessel ischemic changes. There is intracranial internal carotid artery atherosclerosis. Skull and face: Calvarium and visualized facial bones appear intact, without suspicious lesions. Sinuses: Visualized sinuses and mastoids are clear. IMPRESSION: No trauma found. Dictated by: Giovanni Casillas M.D. on 08/12/2018 at 15:24 Approved by: Giovanni Casillas M.D. on 08/12/2018 at 15:26
[2018-08-12] MEDS: ACETAMINOPHEN 325 MG TABLET 650 MG PO (13:04)
--- NOTE | 2018-08-12 13:06 | ED_ITS ---
HPI - Back Pain/Injury <ZACH Adam - Last Filed: 08/12/18 19:11> General Chief Complaint: Back Pain/Injury Stated Complaint: Back pain Time Seen by Provider: 08/12/18 12:37 Source: patient, family, EMS and RN notes reviewed Mode of arrival: EMS Limitations: altered mental status History of Present Illness HPI Narrative: The patient is an 82-year-old female who presents with her niece and long by EMS for chief complaint of rib pain and multiple falls at home. Patient has a history of dementia. She states she fell a few days ago and then states that she fell earlier today. She tells nursing staff that she reached out to prevent herself from falling. She complains of left rib pain. She presents by EMS. Upon my exam she is accompanied by her niece, who states that the patient has had worsening dementia and multiple falls in the past few days. Related Data Home Medications Medication Instructions Recorded Confirmed aspirin 81 mg PO DAILY #0 10/10/16 08/12/18 chlorthalidone 12.5 mg PO DAILY 08/12/18 08/12/18 lisinopril 20 mg PO DAILY 08/12/18 08/12/18 Previous Rx's Medication Instructions Recorded diltiazem CD 300 mg 300 mg PO DAILY #90 cap 07/05/18 capsule,extended release 24 hr Allergies Allergy/AdvReac Type Severity Reaction Status Date / Time diazepam [DIAZEPAM] AdvReac Severe loses Verified 08/12/18 10:05 balance easily azithromycin [AZITHROMYCIN] AdvReac Intermediate Fatigue, Verified 08/12/18 10:05 felt run down PFSH <ZACH Adam - Last Filed: 08/12/18 19:11> Medical History Vascular dementia (Chronic) Essential hypertension (Chronic 07/05/16) Hyperlipidemia (Chronic) Stenosis of aorta (Chronic 12/28/10) Atrial septal aneurysm (Chronic 07/06/15) Atrial fibrillation with RVR (Chronic) Current smoker (Chronic) Chronic obstructive pulmonary disease (Chronic) Aortic stenosis (Acute) Atrial fibrillation (Acute) Atrial septal aneurysm (Acute) COPD (chronic obstructive pulmonary disease) (Acute) Essential hypertension (Acute) Hyperlipidemia (Acute) Macular degeneration (Acute) Memory deficit (Acute) Smoker (Acute) Abdominal bruit (Inactive) Aortic valve disorder (Inactive) Carotid bruit (Inactive) Heart murmur (Inactive) History of chicken pox (Inactive) History of measles (Inactive) History of mumps (Inactive) Leukoplakia (Inactive) Sebaceous cyst of labia (Inactive) Seborrheic keratosis (Inactive) Surgical History (Updated 08/12/18 @ 17:54 by Yesi Fitzpatrick MD) History of sinus surgery (Acute) History of sinus surgery (Inactive) Family History (Updated 08/12/18 @ 17:40 by Yesi Fitzpatrick MD) Brother Diabetes mellitus Heart disease Father MVA (motor vehicle accident) Mother MVA (motor vehicle accident) Sister No problems noted. Social History household members: none Smoking Status: Former smoker Tobacco: How many years used: 60 second hand exposure: No alcohol intake: never substance use type: does not use caffeine: No Social History household members: none Smoking Status: Former smoker Tobacco: How many years used: 60 second hand exposure: No alcohol intake: never substance use type: does not use caffeine: No Exam <TOR Adam-BC - Last Filed: 08/12/18 19:11> Narrative Exam Narrative: GENERAL: Chronically ill, thin elderly female lying on stretcher. HEAD: Atraumatic. Normocephalic. No temporal or scalp tenderness. EYES: Pupils equal round and reactive. Extraocular motions intact. No scleral icterus. No injection or drainage. ENT: Nose without bleeding, purulent drainage or septal hematoma. Throat without erythema, tonsillar hypertrophy or exudate. Uvula midline. Airway patent. dry mucous membranes. NECK: Trachea midline. No JVD or lymphadenopathy. Supple, nontender, no meningeal signs. CARDIOVASCULAR: Regular rate and rhythm RESPIRATORY: Clear to auscultation. Breath sounds equal bilaterally. coarse breath sounds bilaterally. no retractions. Occasional wet sounding cough. Pain to palpation left ribs. Pain on anterior posterior palpation. pain on lateral chest wal palpation. GASTROINTESTINAL: Abdomen soft, non-tender, nondistended. No hepato- splenomegaly, or palpable masses. No guarding. active bowel sounds. EXTREMITIES: No clubbing, cyanosis, or edema. No joint tenderness, effusion, or edema noted. BACK: Nontender without deformity or crepitance. No flank tenderness. no pain to C-spine or spinal palpation. NEURO: Alert. Disoriented to place. Disoriented to year. Disoriented to time. Oriented to name. SKIN: Multiple scattered ecchymosis areas over bilateral forearms. No ecchymosis erythema or rash noted over right chest wall or left chest wall. Initial Vital Signs Initial Vital Signs: Vital Signs Temperature 97.7 F 08/12/18 10:05 Pulse Rate 85 08/12/18 10:05 Respiratory Rate 22 08/12/18 10:05 Blood Pressure 169/54 H 08/12/18 10:05 Pulse Oximetry 93 08/12/18 10:05 <Bri Mchugh MD - Last Filed: 08/14/18 14:18> Initial Vital Signs Initial Vital Signs: Vital Signs Temperature 97.7 F 08/12/18 10:05 Pulse Rate 85 08/12/18 10:05 Respiratory Rate 22 08/12/18 10:05 Blood Pressure 169/54 H 08/12/18 10:05 Pulse Oximetry 93 08/12/18 10:05 Course <ZACH Adam - Last Filed: 08/12/18 19:11> Orders Ordered: Acetaminophen (Tylenol) 650 mg PO TID [facility] Last Admin: 08/14/18 09:52 Dose: 650 mg Admin: 08/13/18 21:19 Dose: 325 mg Admin: 08/13/18 14:50 Dose: 650 mg Hydrocodone Bitart/Acetaminophen (Hansen 5/325) 1 tab PO Q6HR PRN PRN Reason: Pain, Severe (7-10) Last Admin: 08/14/18 09:51 Dose: 1 tab Admin: 08/13/18 21:34 Dose: 1 tab Albuterol/Ipratropium (Duoneb) 3 ml INH RTQ4HR PRN PRN Reason: Shortness Of Breath Aspirin (Aspirin Ec) 81 mg PO DAILY [facility] Last Admin: 08/14/18 09:53 Dose: 81 mg Admin: 08/13/18 10:11 Dose: 81 mg Chlorthalidone (Hygroton) 12.5 mg PO DAILY [facility] Last Admin: 08/14/18 09:53 Dose: 12.5 mg Admin: 08/13/18 10:11 Dose: 12.5 mg Diltiazem HCl (Cardizem Cd) 180 mg PO DAILY [facility] Last Admin: 08/14/18 10:00 Dose: 180 mg Admin: 08/13/18 10:13 Dose: 180 mg Diltiazem HCl (Cardizem Cd) 120 mg PO DAILY [facility] Last Admin: 08/14/18 10:00 Dose: 120 mg Admin: 08/13/18 10:14 Dose: 120 mg Docusate Sodium (Colace) 100 mg PO BID PRN PRN Reason: Constipation Dextrose/Sodium Chloride (Dextrose 5%-0.9% Ns) 1,000 mls @ 75 mls/hr IV CONT [facility] Last Admin: 08/14/18 00:00 Dose: 75 mls/hr Infusion: 08/14/18 00:00 Dose: 0 mls/hr Admin: 08/13/18 09:34 Dose: 75 mls/hr Infusion: 08/13/18 07:42 Dose: 75 mls/hr Admin: 08/12/18 18:22 Dose: 75 mls/hr Ceftriaxone Sodium/Dextrose (Rocephin) 2 gm in 50 mls @ 100 mls/hr IV Q24H [facility] Last Infusion: 08/14/18 11:00 Dose: 0 mls/hr Admin: 08/14/18 09:42 Dose: 100 mls/hr Infusion: 08/14/18 06:29 Dose: 0 mls/hr Admin: 08/13/18 10:14 Dose: 100 mls/hr Lisinopril (Zestril) 20 mg PO DAILY [facility] Last Admin: 08/14/18 10:00 Dose: 20 mg Admin: 08/13/18 10:10 Dose: 20 mg Ondansetron HCl (Zofran Odt) 4 mg PO Q8HR PRN PRN Reason: Nausea And Vomiting Polyethylene Glycol (Miralax) 17 gm PO DAILY [facility] Quetiapine Fumarate (Seroquel) 12.5 mg PO BEDTIME PRN PRN Reason: agitation/sleep Sennosides (Senna) 17.2 mg PO DAILY PRN PRN Reason: Constipation Discontinued Medications Acetaminophen (Tylenol) 650 mg PO NOW ONE Stop: 08/12/18 12:53 Last Admin: 08/12/18 13:04 Dose: 650 mg Acetaminophen (Tylenol) 650 mg PO Q6HR PRN PRN Reason: As Needed for Fever/Mild Pain Last Admin: 08/13/18 10:13 Dose: 650 mg Hydrocodone Bitart/Acetaminophen (Hansen 5/325) 1 tab PO Q4HR PRN PRN Reason: Pain, Moderate (4-6) Last Admin: 08/13/18 05:21 Dose: 1 tab Fentanyl (Sublimaze) 50 mcg 1 mcg/kg (50 mcg) IV NOW ONE Stop: 08/12/18 14:11 Last Admin: 08/12/18 14:17 Dose: 50 mcg Fentanyl (Sublimaze) 50 mcg 1 mcg/kg (50 mcg) IV NOW PRN PRN Reason: Pain, Severe (7-10) Last Admin: 08/12/18 14:17 Dose: 50 mcg Sodium Chloride (Normal Saline 0.9%) 1,000 mls @ 100 mls/hr IV CONT [facility] Last Infusion: 08/12/18 18:22 Dose: 0 mls/hr Admin: 08/12/18 14:05 Dose: 100 mls/hr Lidocaine (Lidoderm) 1 each TOP NOW ONE Stop: 08/12/18 13:48 Last Admin: 08/12/18 13:58 Dose: 1 each Morphine Sulfate (Morphine) 2 mg IV NOW ONE Stop: 08/12/18 13:48 Last Admin: 08/12/18 13:58 Dose: 2 mg Morphine Sulfate (Morphine) 2 mg IV NOW ONE Stop: 08/12/18 14:00 Last Admin: 08/12/18 14:05 Dose: 2 mg Morphine Sulfate (Morphine) 2 mg IV NOW ONE Stop: 08/12/18 16:01 Last Admin: 08/12/18 16:12 Dose: 2 mg Ondansetron HCl (Zofran) 4 mg IV NOW ONE Stop: 08/12/18 13:49 Last Admin: 08/12/18 13:58 Dose: 4 mg Quetiapine Fumarate (Seroquel) 12.5 mg PO TID PRN PRN Reason: Agitation Last Admin: 08/14/18 06:30 Dose: 12.5 mg Admin: 08/13/18 23:47 Dose: 12.5 mg Vital Signs - 8 hr 08/14/18 08:05 08/14/18 10:00 08/14/18 13:30 Temperature 97.4 F L 99.1 F Pulse Rate 70 87 70 Respiratory Rate 18 18 Blood Pressure 156/56 H 164/77 H 141/60 H Pulse Oximetry 92 91 95 <Bri Mchugh MD - Last Filed: 08/14/18 14:18> Orders Ordered: Acetaminophen (Tylenol) 650 mg PO TID [facility] Last Admin: 08/14/18 09:52 Dose: 650 mg Admin: 08/13/18 21:19 Dose: 325 mg Admin: 08/13/18 14:50 Dose: 650 mg Hydrocodone Bitart/Acetaminophen (Hansen 5/325) 1 tab PO Q6HR PRN PRN Reason: Pain, Severe (7-10) Last Admin: 08/14/18 09:51 Dose: 1 tab Admin: 08/13/18 21:34 Dose: 1 tab Albuterol/Ipratropium (Duoneb) 3 ml INH RTQ4HR PRN PRN Reason: Shortness Of Breath Aspirin (Aspirin Ec) 81 mg PO DAILY [facility] Last Admin: 08/14/18 09:53 Dose: 81 mg Admin: 08/13/18 10:11 Dose: 81 mg Chlorthalidone (Hygroton) 12.5 mg PO DAILY [facility] Last Admin: 08/14/18 09:53 Dose: 12.5 mg Admin: 08/13/18 10:11 Dose: 12.5 mg Diltiazem HCl (Cardizem Cd) 180 mg PO DAILY [facility] Last Admin: 08/14/18 10:00 Dose: 180 mg Admin: 08/13/18 10:13 Dose: 180 mg Diltiazem HCl (Cardizem Cd) 120 mg PO DAILY [facility] Last Admin: 08/14/18 10:00 Dose: 120 mg Admin: 08/13/18 10:14 Dose: 120 mg Docusate Sodium (Colace) 100 mg PO BID PRN PRN Reason: Constipation Dextrose/Sodium Chloride (Dextrose 5%-0.9% Ns) 1,000 mls @ 75 mls/hr IV CONT [facility] Last Admin: 08/14/18 00:00 Dose: 75 mls/hr Infusion: 08/14/18 00:00 Dose: 0 mls/hr Admin: 08/13/18 09:34 Dose: 75 mls/hr Infusion: 08/13/18 07:42 Dose: 75 mls/hr Admin: 08/12/18 18:22 Dose: 75 mls/hr Ceftriaxone Sodium/Dextrose (Rocephin) 2 gm in 50 mls @ 100 mls/hr IV Q24H [facility] Last Infusion: 08/14/18 11:00 Dose: 0 mls/hr Admin: 08/14/18 09:42 Dose: 100 mls/hr Infusion: 08/14/18 06:29 Dose: 0 mls/hr Admin: 08/13/18 10:14 Dose: 100 mls/hr Lisinopril (Zestril) 20 mg PO DAILY [facility] Last Admin: 08/14/18 10:00 Dose: 20 mg Admin: 08/13/18 10:10 Dose: 20 mg Ondansetron HCl (Zofran Odt) 4 mg PO Q8HR PRN PRN Reason: Nausea And Vomiting Polyethylene Glycol (Miralax) 17 gm PO DAILY [facility] Quetiapine Fumarate (Seroquel) 12.5 mg PO BEDTIME PRN PRN Reason: agitation/sleep Sennosides (Senna) 17.2 mg PO DAILY PRN PRN Reason: Constipation Discontinued Medications Acetaminophen (Tylenol) 650 mg PO NOW ONE Stop: 08/12/18 12:53 Last Admin: 08/12/18 13:04 Dose: 650 mg Acetaminophen (Tylenol) 650 mg PO Q6HR PRN PRN Reason: As Needed for Fever/Mild Pain Last Admin: 08/13/18 10:13 Dose: 650 mg Hydrocodone Bitart/Acetaminophen (Hansen 5/325) 1 tab PO Q4HR PRN PRN Reason: Pain, Moderate (4-6) Last Admin: 08/13/18 05:21 Dose: 1 tab Fentanyl (Sublimaze) 50 mcg 1 mcg/kg (50 mcg) IV NOW ONE Stop: 08/12/18 14:11 Last Admin: 08/12/18 14:17 Dose: 50 mcg Fentanyl (Sublimaze) 50 mcg 1 mcg/kg (50 mcg) IV NOW PRN PRN Reason: Pain, Severe (7-10) Last Admin: 08/12/18 14:17 Dose: 50 mcg Sodium Chloride (Normal Saline 0.9%) 1,000 mls @ 100 mls/hr IV CONT [facility] Last Infusion: 08/12/18 18:22 Dose: 0 mls/hr Admin: 08/12/18 14:05 Dose: 100 mls/hr Lidocaine (Lidoderm) 1 each TOP NOW ONE Stop: 08/12/18 13:48 Last Admin: 08/12/18 13:58 Dose: 1 each Morphine Sulfate (Morphine) 2 mg IV NOW ONE Stop: 08/12/18 13:48 Last Admin: 08/12/18 13:58 Dose: 2 mg Morphine Sulfate (Morphine) 2 mg IV NOW ONE Stop: 08/12/18 14:00 Last Admin: 08/12/18 14:05 Dose: 2 mg Morphine Sulfate (Morphine) 2 mg IV NOW ONE Stop: 08/12/18 16:01 Last Admin: 08/12/18 16:12 Dose: 2 mg Ondansetron HCl (Zofran) 4 mg IV NOW ONE Stop: 08/12/18 13:49 Last Admin: 08/12/18 13:58 Dose: 4 mg Quetiapine Fumarate (Seroquel) 12.5 mg PO TID PRN PRN Reason: Agitation Last Admin: 08/14/18 06:30 Dose: 12.5 mg Admin: 08/13/18 23:47 Dose: 12.5 mg Vital Signs - 8 hr 08/14/18 08:05 08/14/18 10:00 08/14/18 13:30 Temperature 97.4 F L 99.1 F Pulse Rate 70 87 70 Respiratory Rate 18 18 Blood Pressure 156/56 H 164/77 H 141/60 H Pulse Oximetry 92 91 95 MDM - Back Pain/Injury <ZACH Adam - Last Filed: 08/12/18 19:11> Lab Data Result diagrams: 08/13/18 10:14 08/13/18 10:14 Lab Results 08/12/18 08/12/18 08/12/18 Range/Units 13:15 13:15 13:15 WBC 8.0 (4.5-11.0) X10^3/uL RBC 4.27 (4.0-5.2) X10^6/uL Hgb 12.3 (12.0-16.0) g/dL Hct 36.1 (36-46) % MCV 84.5 (80-100) fL MCH 28.9 (26-34) PG MCHC 34.2 (30-36) % RDW 16.7 H (11.6-14.8) % Plt Count 321 (150-400) X10^3/uL Neut % (Auto) 86.2 H (50-75) % Lymph % (Auto) 8.6 L (25-40) % [place] % (Auto) 3.8 (3-14) % Eos % (Auto) 0.7 L (2-4) % Baso % (Auto) 0.7 (0-2) % Neut # (Auto) 6900 (4345-4397) /uL Lymph # (Auto) 700 L (6897-2876) /uL [place] # (Auto) 300 (0-900) /uL Eos # (Auto) 100 (0-450) /uL Baso # (Auto) 100 (0-100) /uL Sodium 134 L (137-145) mmol/L Potassium 4.0 (3.4-5.1) mmol/L Chloride 96 L (98-107) mmol/L Carbon Dioxide 29 (22-32) mmol/L BUN 28 H (7-17) mg/dL Creatinine 0.60 (0.52-1.04) mg/dL Estimated GFR > 60.0 (>60) mL/min BUN/Creatinine Ratio 46.7 H (6-22) Glucose 101 (80-110) mg/dL Lactate (0.7-2.1) mmol/L Calcium 9.4 (8.4-10.2) mg/dL Magnesium (1.6-2.3) mg/dL Total Bilirubin 0.5 (0.2-1.3) mg/dL AST 38 H (14-36) IU/L ALT 45 (9-52) IU/L Alkaline Phosphatase 99 (38-126) U/L Total Creatine Kinase 38 (30-135) U/L CK-MB (CK-2) TNP CK-MB (CK-2) Rel Index TNP Troponin I < 0.012 (0.01-0.034) ng/mL B-Natriuretic Peptide < 100 (<100) Total Protein 6.9 (6.3-8.2) g/dL Albumin 4.1 (3.5-5.0) g/dL Globulin 2.8 (1.7-4.1) g/dL Albumin/Globulin Ratio 1.5 (1.0-2.8) Urine Color Urine Appearance Urine pH (4.5-8.0) Ur Specific [place] (1.000-1.035) Urine Protein (Negative) Urine Glucose (UA) (Negative) g/dL Urine Ketones (NEGATIVE) Urine Occult Blood (Negative) Urine Nitrate (Negative) Urine Bilirubin (NEGATIVE) Urine Urobilinogen (0.2) E.U./dL Ur Leukocyte Esterase (NEGATIVE) Urine RBC (0-5/HPF) Urine WBC (0-5/HPF) Ur Squamous Epith Cells (0-5/HPF) Ur Transition Epith Cell (0-5/HPF) Ur Renal Epithelial Cell (0-1/HPF) Urine Bacteria (None) Ur Culture Indicated? Urine Opiates Screen (Negative) Ur Oxycodone Screen (Negative) Urine Methadone Screen (Negative) Ur Barbiturates Screen (Negative) U Tricyclic Antidepress (Negative) Ur Phencyclidine Scrn (Negative) Ur Amphetamines Screen (Negative) U Methamphetamines Scrn (Negative) Ur MDMA Scrn (Ecstasy) (Negative) U Benzodiazepines Scrn (Negative) Urine Cocaine Screen (Negative) U Marijuana (THC) Screen (Negative) 08/12/18 08/12/18 08/12/18 Range/Units 13:15 13:15 13:30 WBC (4.5-11.0) X10^3/uL RBC (4.0-5.2) X10^6/uL Hgb (12.0-16.0) g/dL Hct (36-46) % MCV (80-100) fL MCH (26-34) PG MCHC (30-36) % RDW (11.6-14.8) % Plt Count (150-400) X10^3/uL Neut % (Auto) (50-75) % Lymph % (Auto) (25-40) % [place] % (Auto) (3-14) % Eos % (Auto) (2-4) % Baso % (Auto) (0-2) % Neut # (Auto) (5782-3844) /uL Lymph # (Auto) (5784-5449) /uL [place] # (Auto) (0-900) /uL Eos # (Auto) (0-450) /uL Baso # (Auto) (0-100) /uL Sodium (137-145) mmol/L Potassium (3.4-5.1) mmol/L Chloride (98-107) mmol/L Carbon Dioxide (22-32) mmol/L BUN (7-17) mg/dL Creatinine (0.52-1.04) mg/dL Estimated GFR (>60) mL/min BUN/Creatinine Ratio (6-22) Glucose (80-110) mg/dL Lactate 0.8 (0.7-2.1) mmol/L Calcium (8.4-10.2) mg/dL Magnesium (1.6-2.3) mg/dL Total Bilirubin (0.2-1.3) mg/dL AST (14-36) IU/L ALT (9-52) IU/L Alkaline Phosphatase (38-126) U/L Total Creatine Kinase 38 (30-135) U/L CK-MB (CK-2) CK-MB (CK-2) Rel Index Troponin I (0.01-0.034) ng/mL B-Natriuretic Peptide (<100) Total Protein (6.3-8.2) g/dL Albumin (3.5-5.0) g/dL Globulin (1.7-4.1) g/dL Albumin/Globulin Ratio (1.0-2.8) Urine Color Yellow Urine Appearance Sl cloudy Urine pH 5.0 (4.5-8.0) Ur Specific [place] 1.020 (1.000-1.035) Urine Protein Negative (Negative) Urine Glucose (UA) Negative (Negative) g/dL Urine Ketones Negative (NEGATIVE) Urine Occult Blood Trace-intact (Negative) Urine Nitrate Negative (Negative) Urine Bilirubin Negative (NEGATIVE) Urine Urobilinogen 0.2 (0.2) E.U./dL Ur Leukocyte Esterase Negative (NEGATIVE) Urine RBC 1-5/hpf (0-5/HPF) Urine WBC 0-1/hpf (0-5/HPF) Ur Squamous Epith Cells 1-5 /hpf (0-5/HPF) Ur Transition Epith Cell 1-5/hpf (0-5/HPF) Ur Renal Epithelial Cell 0-1/hpf (0-1/HPF) Urine Bacteria Many (>30) H (None) Ur Culture Indicated? Specimen cultured Urine Opiates Screen (Negative) Ur Oxycodone Screen (Negative) Urine Methadone Screen (Negative) Ur Barbiturates Screen (Negative) U Tricyclic Antidepress (Negative) Ur Phencyclidine Scrn (Negative) Ur Amphetamines Screen (Negative) U Methamphetamines Scrn (Negative) Ur MDMA Scrn (Ecstasy) (Negative) U Benzodiazepines Scrn (Negative) Urine Cocaine Screen (Negative) U Marijuana (THC) Screen (Negative) 08/12/18 08/13/18 08/13/18 Range/Units 13:30 10:14 10:14 WBC 8.4 (4.5-11.0) X10^3/uL RBC 4.44 (4.0-5.2) X10^6/uL Hgb 12.6 (12.0-16.0) g/dL Hct 37.8 (36-46) % MCV 85.3 (80-100) fL MCH 28.5 (26-34) PG MCHC 33.4 (30-36) % RDW 16.4 H (11.6-14.8) % Plt Count 379 (150-400) X10^3/uL Neut % (Auto) 76.0 H (50-75) % Lymph % (Auto) 13.7 L (25-40) % [place] % (Auto) 8.2 (3-14) % Eos % (Auto) 1.3 L (2-4) % Baso % (Auto) 0.8 (0-2) % Neut # (Auto) 6400 (4934-8842) /uL Lymph # (Auto) 1100 (7724-5657) /uL [place] # (Auto) 700 (0-900) /uL Eos # (Auto) 100 (0-450) /uL Baso # (Auto) 100 (0-100) /uL Sodium 134 L (137-145) mmol/L Potassium 3.6 (3.4-5.1) mmol/L Chloride 98 (98-107) mmol/L Carbon Dioxide 30 (22-32) mmol/L BUN 15 (7-17) mg/dL Creatinine 0.50 L (0.52-1.04) mg/dL Estimated GFR > 60.0 (>60) mL/min BUN/Creatinine Ratio 30.0 H (6-22) Glucose 106 (80-110) mg/dL Lactate (0.7-2.1) mmol/L Calcium 8.9 (8.4-10.2) mg/dL Magnesium 1.7 (1.6-2.3) mg/dL Total Bilirubin (0.2-1.3) mg/dL AST (14-36) IU/L ALT (9-52) IU/L Alkaline Phosphatase (38-126) U/L Total Creatine Kinase (30-135) U/L CK-MB (CK-2) CK-MB (CK-2) Rel Index Troponin I (0.01-0.034) ng/mL B-Natriuretic Peptide (<100) Total Protein (6.3-8.2) g/dL Albumin (3.5-5.0) g/dL Globulin (1.7-4.1) g/dL Albumin/Globulin Ratio (1.0-2.8) Urine Color Urine Appearance Urine pH (4.5-8.0) Ur Specific [place] (1.000-1.035) Urine Protein (Negative) Urine Glucose (UA) (Negative) g/dL Urine Ketones (NEGATIVE) Urine Occult Blood (Negative) Urine Nitrate (Negative) Urine Bilirubin (NEGATIVE) Urine Urobilinogen (0.2) E.U./dL Ur Leukocyte Esterase (NEGATIVE) Urine RBC (0-5/HPF) Urine WBC (0-5/HPF) Ur Squamous Epith Cells (0-5/HPF) Ur Transition Epith Cell (0-5/HPF) Ur Renal Epithelial Cell (0-1/HPF) Urine Bacteria (None) Ur Culture Indicated? Urine Opiates Screen Negative (Negative) Ur Oxycodone Screen Negative (Negative) Urine Methadone Screen Negative (Negative) Ur Barbiturates Screen Negative (Negative) U Tricyclic Antidepress Negative (Negative) Ur Phencyclidine Scrn Negative (Negative) Ur Amphetamines Screen Negative (Negative) U Methamphetamines Scrn Negative (Negative) Ur MDMA Scrn (Ecstasy) Negative (Negative) U Benzodiazepines Scrn Negative (Negative) Urine Cocaine Screen Negative (Negative) U Marijuana (THC) Screen Negative (Negative) Imaging Data CT scan - head: Radiologist's impression: [address] [address] [address] Scan Report Signed Patient: Meghna Sheldon EMR#: [id number] : 6Acct:[id number] Age/Sex: 82 / FDate of Service: 08/12/18 Loc: ED Accession Number: [id number] Procedure: CT head/brain wo con Ordering Provider: Zohra Frank PROCEDURE: CT HEAD/BRAIN WO CON INDICATIONS: glf TECHNIQUE: Noncontrast 4.5 mm thick angled axial sections acquired from the foramen magnum to the vertex, with coronal and sagittal reformats. For radiation dose reduction, the following was used: automated exposure control, adjustment of mA and/or kV according to patient size. COMPARISON: None. FINDINGS: Image quality: Excellent. CSF spaces: Basal cisterns are patent. No extra-axial fluid collections. The ventricles are symmetric in size and shape. Brain: No intracranial bleeds or masses. There is cerebral volume loss for age, with resultant ventricular and sulcal prominence. There are periventricular and deep white matter chronic small vessel ischemic changes. There is intracranial internal carotid artery atherosclerosis. Skull and face: Calvarium and visualized facial bones appear intact, without suspicious lesions. Sinuses: Visualized sinuses and mastoids are clear. IMPRESSION: No trauma found. Dictated by: Giovanni Casillas M.D. on 08/12/2018 at 15:24 Approved by: Giovanni Casillas M.D. on 08/12/2018 at 15:26 Chest x-ray: Radiologist's impression: [place] [address] XRay Report Signed Patient: Meghna Sheldon EMR#: [id number] : 6Acct:[id number] Age/Sex: 82 / FDate of Service: 08/12/18 Loc: ED Accession Number: [id number] Procedure: XR chest 1V Ordering Provider: Zohra Frank PROCEDURE: XR CHEST 1V INDICATIONS: rib pain TECHNIQUE: One view of the chest was acquired. [facility] 04/12/2018, 20:20. FINDINGS: Surgical changes and devices: None. Lungs and pleura: Lungs are clear. No pleural effusions or pneumothorax. Mediastinum: Mediastinal contours appear normal. Heart size is normal. Bones and chest wall: No suspicious bony lesions. Overlying soft tissues appear unremarkable. IMPRESSION: Patient is rotated and tilted rightward. Mild interstitial prominence at each lung base previously present and therefore no definite pneumonia is suspected. No trauma found. Dictated by: Giovanni Casillas M.D. on 08/12/2018 at 16:38 Approved by: Giovanni Casillas M.D. on 08/12/2018 at 16:39 ECG Data Attestation: I personally reviewed and interpreted this ECG as follows: Interpretation: Sinus rhythm. Ventricular rate 76. No ectopy noted. No ST elevation or depression. Viewed by Dr. Mchugh MDM Narrative Medical decision making narrative: The patient is an 82-year-old female who lives by herself with history of dementia. She presented the emergency department complaining with mostly rib pain, and multiple falls per her family. She is a poor historian at this point in time, and appears to be confused on interview. Thus we did a CBC, CMP, BNP and troponin. Her labs came back gross ly normal. She has a normal lactate. Given her history of multiple falls home, I obtained a head CT which was normal. I also requested a chest x-ray with ribs given where her pain was, but the patient was noncompliant with imaging initially. She was given multiple doses of morphine, fentanyl and a lidocaine patch for pain prior to imaging. I went to imaging with her, and the patient was kicking and screaming. She was combative during imaging. I would like to obtain further imaging, but did not want to risk the patient falling. She had a cath UA, which showed bacteria but nothing else. However given the patient's multiple falls at home as well as her mental status, I am not comfortable discharging her to home. I am concerned about her living situation, especially given that she lives independently. Thus I contacted Dr. Fitzpatrick regarding admission for multiple falls and pain control. He was kind enough to admit the patient. I discussed with the patient's niece who accompanies her that I believe she careful discharge planning and might be unsafe to live by herself at this point time. <Bri Mchugh MD - Last Filed: 08/14/18 14:18> Lab Data Lab Results 08/12/18 08/12/18 08/12/18 Range/Units 13:15 13:15 13:15 WBC 8.0 (4.5-11.0) X10^3/uL RBC 4.27 (4.0-5.2) X10^6/uL Hgb 12.3 (12.0-16.0) g/dL Hct 36.1 (36-46) % MCV 84.5 (80-100) fL MCH 28.9 (26-34) PG MCHC 34.2 (30-36) % RDW 16.7 H (11.6-14.8) % Plt Count 321 (150-400) X10^3/uL Neut % (Auto) 86.2 H (50-75) % Lymph % (Auto) 8.6 L (25-40) % [place] % (Auto) 3.8 (3-14) % Eos % (Auto) 0.7 L (2-4) % Baso % (Auto) 0.7 (0-2) % Neut # (Auto) 6900 (1091-2068) /uL Lymph # (Auto) 700 L (2731-5795) /uL [place] # (Auto) 300 (0-900) /uL Eos # (Auto) 100 (0-450) /uL Baso # (Auto) 100 (0-100) /uL Sodium 134 L (137-145) mmol/L Potassium 4.0 (3.4-5.1) mmol/L Chloride 96 L (98-107) mmol/L Carbon Dioxide 29 (22-32) mmol/L BUN 28 H (7-17) mg/dL Creatinine 0.60 (0.52-1.04) mg/dL Estimated GFR > 60.0 (>60) mL/min BUN/Creatinine Ratio 46.7 H (6-22) Glucose 101 (80-110) mg/dL Lactate (0.7-2.1) mmol/L Calcium 9.4 (8.4-10.2) mg/dL Magnesium (1.6-2.3) mg/dL Total Bilirubin 0.5 (0.2-1.3) mg/dL AST 38 H (14-36) IU/L ALT 45 (9-52) IU/L Alkaline Phosphatase 99 (38-126) U/L Total Creatine Kinase 38 (30-135) U/L CK-MB (CK-2) TNP CK-MB (CK-2) Rel Index TNP Troponin I < 0.012 (0.01-0.034) ng/mL B-Natriuretic Peptide < 100 (<100) Total Protein 6.9 (6.3-8.2) g/dL Albumin 4.1 (3.5-5.0) g/dL Globulin 2.8 (1.7-4.1) g/dL Albumin/Globulin Ratio 1.5 (1.0-2.8) Urine Color Urine Appearance Urine pH (4.5-8.0) Ur Specific [place] (1.000-1.035) Urine Protein (Negative) Urine Glucose (UA) (Negative) g/dL Urine Ketones (NEGATIVE) Urine Occult Blood (Negative) Urine Nitrate (Negative) Urine Bilirubin (NEGATIVE) Urine Urobilinogen (0.2) E.U./dL Ur Leukocyte Esterase (NEGATIVE) Urine RBC (0-5/HPF) Urine WBC (0-5/HPF) Ur Squamous Epith Cells (0-5/HPF) Ur Transition Epith Cell (0-5/HPF) Ur Renal Epithelial Cell (0-1/HPF) Urine Bacteria (None) Ur Culture Indicated? Urine Opiates Screen (Negative) Ur Oxycodone Screen (Negative) Urine Methadone Screen (Negative) Ur Barbiturates Screen (Negative) U Tricyclic Antidepress (Negative) Ur Phencyclidine Scrn (Negative) Ur Amphetamines Screen (Negative) U Methamphetamines Scrn (Negative) Ur MDMA Scrn (Ecstasy) (Negative) U Benzodiazepines Scrn (Negative) Urine Cocaine Screen (Negative) U Marijuana (THC) Screen (Negative) 08/12/18 08/12/18 08/12/18 Range/Units 13:15 13:15 13:30 WBC (4.5-11.0) X10^3/uL RBC (4.0-5.2) X10^6/uL Hgb (12.0-16.0) g/dL Hct (36-46) % MCV (80-100) fL MCH (26-34) PG MCHC (30-36) % RDW (11.6-14.8) % Plt Count (150-400) X10^3/uL Neut % (Auto) (50-75) % Lymph % (Auto) (25-40) % [place] % (Auto) (3-14) % Eos % (Auto) (2-4) % Baso % (Auto) (0-2) % Neut # (Auto) (3521-1815) /uL Lymph # (Auto) (6876-5743) /uL [place] # (Auto) (0-900) /uL Eos # (Auto) (0-450) /uL Baso # (Auto) (0-100) /uL Sodium (137-145) mmol/L Potassium (3.4-5.1) mmol/L Chloride (98-107) mmol/L Carbon Dioxide (22-32) mmol/L BUN (7-17) mg/dL Creatinine (0.52-1.04) mg/dL Estimated GFR (>60) mL/min BUN/Creatinine Ratio (6-22) Glucose (80-110) mg/dL Lactate 0.8 (0.7-2.1) mmol/L Calcium (8.4-10.2) mg/dL Magnesium (1.6-2.3) mg/dL Total Bilirubin (0.2-1.3) mg/dL AST (14-36) IU/L ALT (9-52) IU/L Alkaline Phosphatase (38-126) U/L Total Creatine Kinase 38 (30-135) U/L CK-MB (CK-2) CK-MB (CK-2) Rel Index Troponin I (0.01-0.034) ng/mL B-Natriuretic Peptide (<100) Total Protein (6.3-8.2) g/dL Albumin (3.5-5.0) g/dL Globulin (1.7-4.1) g/dL Albumin/Globulin Ratio (1.0-2.8) Urine Color Yellow Urine Appearance Sl cloudy Urine pH 5.0 (4.5-8.0) Ur Specific [place] 1.020 (1.000-1.035) Urine Protein Negative (Negative) Urine Glucose (UA) Negative (Negative) g/dL Urine Ketones Negative (NEGATIVE) Urine Occult Blood Trace-intact (Negative) Urine Nitrate Negative (Negative) Urine Bilirubin Negative (NEGATIVE) Urine Urobilinogen 0.2 (0.2) E.U./dL Ur Leukocyte Esterase Negative (NEGATIVE) Urine RBC 1-5/hpf (0-5/HPF) Urine WBC 0-1/hpf (0-5/HPF) Ur Squamous Epith Cells 1-5 /hpf (0-5/HPF) Ur Transition Epith Cell 1-5/hpf (0-5/HPF) Ur Renal Epithelial Cell 0-1/hpf (0-1/HPF) Urine Bacteria Many (>30) H (None) Ur Culture Indicated? Specimen cultured Urine Opiates Screen (Negative) Ur Oxycodone Screen (Negative) Urine Methadone Screen (Negative) Ur Barbiturates Screen (Negative) U Tricyclic Antidepress (Negative) Ur Phencyclidine Scrn (Negative) Ur Amphetamines Screen (Negative) U Methamphetamines Scrn (Negative) Ur MDMA Scrn (Ecstasy) (Negative) U Benzodiazepines Scrn (Negative) Urine Cocaine Screen (Negative) U Marijuana (THC) Screen (Negative) 08/12/18 08/13/18 08/13/18 Range/Units 13:30 10:14 10:14 WBC 8.4 (4.5-11.0) X10^3/uL RBC 4.44 (4.0-5.2) X10^6/uL Hgb 12.6 (12.0-16.0) g/dL Hct 37.8 (36-46) % MCV 85.3 (80-100) fL MCH 28.5 (26-34) PG MCHC 33.4 (30-36) % RDW 16.4 H (11.6-14.8) % Plt Count 379 (150-400) X10^3/uL Neut % (Auto) 76.0 H (50-75) % Lymph % (Auto) 13.7 L (25-40) % [place] % (Auto) 8.2 (3-14) % Eos % (Auto) 1.3 L (2-4) % Baso % (Auto) 0.8 (0-2) % Neut # (Auto) 6400 (1074-6392) /uL Lymph # (Auto) 1100 (6970-2460) /uL [place] # (Auto) 700 (0-900) /uL Eos # (Auto) 100 (0-450) /uL Baso # (Auto) 100 (0-100) /uL Sodium 134 L (137-145) mmol/L Potassium 3.6 (3.4-5.1) mmol/L Chloride 98 (98-107) mmol/L Carbon Dioxide 30 (22-32) mmol/L BUN 15 (7-17) mg/dL Creatinine 0.50 L (0.52-1.04) mg/dL Estimated GFR > 60.0 (>60) mL/min BUN/Creatinine Ratio 30.0 H (6-22) Glucose 106 (80-110) mg/dL Lactate (0.7-2.1) mmol/L Calcium 8.9 (8.4-10.2) mg/dL Magnesium 1.7 (1.6-2.3) mg/dL Total Bilirubin (0.2-1.3) mg/dL AST (14-36) IU/L ALT (9-52) IU/L Alkaline Phosphatase (38-126) U/L Total Creatine Kinase (30-135) U/L CK-MB (CK-2) CK-MB (CK-2) Rel Index Troponin I (0.01-0.034) ng/mL B-Natriuretic Peptide (<100) Total Protein (6.3-8.2) g/dL Albumin (3.5-5.0) g/dL Globulin (1.7-4.1) g/dL Albumin/Globulin Ratio (1.0-2.8) Urine Color Urine Appearance Urine pH (4.5-8.0) Ur Specific [place] (1.000-1.035) Urine Protein (Negative) Urine Glucose (UA) (Negative) g/dL Urine Ketones (NEGATIVE) Urine Occult Blood (Negative) Urine Nitrate (Negative) Urine Bilirubin (NEGATIVE) Urine Urobilinogen (0.2) E.U./dL Ur Leukocyte Esterase (NEGATIVE) Urine RBC (0-5/HPF) Urine WBC (0-5/HPF) Ur Squamous Epith Cells (0-5/HPF) Ur Transition Epith Cell (0-5/HPF) Ur Renal Epithelial Cell (0-1/HPF) Urine Bacteria (None) Ur Culture Indicated? Urine Opiates Screen Negative (Negative) Ur Oxycodone Screen Negative (Negative) Urine Methadone Screen Negative (Negative) Ur Barbiturates Screen Negative (Negative) U Tricyclic Antidepress Negative (Negative) Ur Phencyclidine Scrn Negative (Negative) Ur Amphetamines Screen Negative (Negative) U Methamphetamines Scrn Negative (Negative) Ur MDMA Scrn (Ecstasy) Negative (Negative) U Benzodiazepines Scrn Negative (Negative) Urine Cocaine Screen Negative (Negative) U Marijuana (THC) Screen Negative (Negative) Discharge Plan Departure Patient Disposition: Admitted As Inpatient Clinical Impression: Pain Falls Qualifiers: Encounter type: initial encounter Qualified Code(s): W19.XXXA - Unspecified fall, initial encounter Discharge Date/Time: 08/12/18 17:32 Interventions: ED Discharge Assessment Last Done: 08/12/18 17:23 Instructions: DI for Urinary Tract Infection (UTI), How to Prevent Falls, DI for Encephalopathy Referrals: Evie Kim PA-C [Primary Care Provider] - Admit Date/Time: 08/12/18 17:17 Admit Provider: Yesi Fitzpatrick
[2018-08-12 13:34] LABS: Add Manual Diff / Slide Review NO; Basophils Absolute Auto 100 /uL (0-100); Basophils Percent Auto 0.7 % (0-2); Eosinophils Absolute Auto 100 /uL (0-450); Eosinophils Percent Auto 0.7 % (2-4); Hematocrit 36.1 % (36-46); Hemoglobin 12.3 g/dL (12.0-16.0); Lymphocytes Absolute Auto 700 /uL (1100-4500); Lymphocytes Percent Auto 8.6 % (25-40); Mean Corpuscular HGB Conc 34.2 % (30-36); Mean Corpuscular Hemoglobin 28.9 PG (26-34); Mean Corpuscular Volume 84.5 fL (80-100); Monocytes Absolute Auto 300 /uL (0-900); Monocytes Percent Auto 3.8 % (3-14); Neutrophils Absolute Auto 6900 /uL (1500-7000); Neutrophils Percent Auto 86.2 % (50-75); Platelet Count 321 X10^3/uL (150-400); Red Blood Cell Count 4.27 X10^6/uL (4.0-5.2); Red Cell Distribution Width 16.7 % (11.6-14.8)
[2018-08-12 13:40] LABS: Alanine Aminotransferase 45 IU/L (9-52); Albumin 4.1 g/dL (3.5-5.0); Albumin Globulin Ratio 1.5 (1.0-2.8); Alkaline Phosphatase 99 U/L (38-126); Aspartate Aminotransferase 38 IU/L (14-36); BUN Creatinine Ratio 46.7 (6-22); Bilirubin Total 0.5 mg/dL (0.2-1.3); Blood Urea Nitrogen 28 mg/dL (7-17); Calcium 9.4 mg/dL (8.4-10.2); Carbon Dioxide 29 mmol/L (22-32); Chloride 96 mmol/L (98-107); Creatine Kinase 38 U/L (30-135); Estimated Glomerular Filt Rate > 60.0 mL/min (>60); Globulin 2.8 g/dL (1.7-4.1); Glucose 101 mg/dL (80-110); HEMOLYSIS 15 (0-50); Sodium 134 mmol/L (137-145); Total Protein 6.9 g/dL (6.3-8.2)
[2018-08-12 13:43] LABS: Lactate (Lactic Acid) 0.8 mmol/L (0.7-2.1)
[2018-08-12 13:49] LABS: B Type Natriuretic Peptide < 100 (<100)
[2018-08-12 13:53] LABS: Troponin I < 0.012 ng/mL (0.01-0.034)
[2018-08-12] MEDS: MORPHINE 2 MG/ML INJ IV ×3 (13:58→16:12)
[2018-08-12] MEDS: ONDANSETRON 4 MG/2 ML INJ IV (13:58)
[2018-08-12] MEDS: LIDOCAINE PATCH 1 EACH ADH..PATCH TOP (13:58)
[2018-08-12] MEDS: SODIUM CHLORIDE 0.9% 1,000 ML 100 ML IV (14:05)
[2018-08-12 14:09] LABS: Appearance Urine UA SL CLOUDY; Bilirubin Urine UA NEGATIVE (NEGATIVE); Color Urine UA YELLOW; Glucose Urine UA NEGATIVE (Negative); Ketones Urine UA NEGATIVE (NEGATIVE); Leukocyte Esterase Urine UA NEGATIVE (NEGATIVE); Nitrite Urine UA NEGATIVE (Negative); Occult Blood Urine UA TRACE-INTACT (Negative); Protein Urine UA NEGATIVE (Negative); Urobilinogen Urine UA 0.2 E.U./dL (0.2)
[2018-08-12] MEDS: fentaNYL 100 MCG/2 ML INJ 50 MCG IV ×2 (14:17)
[2018-08-12 14:27] LABS: RBC Urine 1-5/HPF (0-5/HPF); Renal Epithelial Cells Urine 0-1/HPF (0-1/HPF); Squamous Epithelial Cell Urine 1-5 /HPF (0-5/HPF); Transitional Epi Cells Urine 1-5/HPF (0-5/HPF); WBC Urine 0-1/HPF (0-5/HPF)
[2018-08-12 14:28] LABS: Bacteria Urine Many (>30)
--- NOTE | 2018-08-12 15:01 | PC.NURSE ---
Patient has been to Radiology department 3 times total in an attempt to obtain ordered images. Patient unable to tolerate the exam. pre-medicated with Fentanyl and morphine. Patient becoming combative, kicking, lashing out, and scratching staff. Able to obtain head CT only. Provider is aware. Patient back to ED and resting comfortably on side.
[2018-08-12 15:16] LABS: Urine Amphetamines Negative (Negative); Urine Barbiturates Negative (Negative); Urine Benzodiazepines Negative (Negative); Urine Cocaine Negative (Negative); Urine MDMA Negative (Negative); Urine Methadone Negative (Negative); Urine Methamphetamines Negative (Negative); Urine Morphine/Opi cutoff 2000 Negative (Negative); Urine Oxycodone Negative (Negative); Urine Phencyclidine Negative (Negative); Urine Tetrahydrocannabinol Negative (Negative); Urine Tricyclic Antidepressant Negative (Negative)
--- NOTE | 2018-08-12 15:33 | PC.NURSE ---
Pt took nasal cannula off and pulse oximeter off. Placed pulse oximeter on and she was 72% on room air. Placed nasal cannula back on at 3L and notified provider.
--- NOTE | 2018-08-12 16:00 | DI.RAD.S_ITS ---
PROCEDURE: XR CHEST 1V INDICATIONS: rib pain TECHNIQUE: One view of the chest was acquired. COMPARISON: [facility], CR, XR CHEST 2V, 04/12/2018, 20:20. FINDINGS: Surgical changes and devices: None. Lungs and pleura: Lungs are clear. No pleural effusions or pneumothorax. Mediastinum: Mediastinal contours appear normal. Heart size is normal. Bones and chest wall: No suspicious bony lesions. Overlying soft tissues appear unremarkable. IMPRESSION: Patient is rotated and tilted rightward. Mild interstitial prominence at each lung base previously present and therefore no definite pneumonia is suspected. No trauma found. Dictated by: Giovanni Casillas M.D. on 08/12/2018 at 16:38 Approved by: Giovanni Casillas M.D. on 08/12/2018 at 16:39
--- NOTE | 2018-08-12 16:31 | PC.NURSE ---
Patient continues to take off her pulse oximeter device.
--- NOTE | 2018-08-12 17:49 | P.HP_ITS ---
History of Present Illness Date Patient Seen: 08/12/18 Time Patient Seen: 17:44 Chief complaint: Back pain Narrative: This is an 82-year-old female with a ground level fall early this morning. She has vascular dementia and so her memory of the events this morning is variable. She says different things to different people. She told her nephew's that she did not fall but she told the staff in the emergency department that she did fall. She pressed her Life Alert button at 9:00 a.m.. When relatives arrived she was sitting in a chair. If she did fall it appears to have been in the middle the night at some point, apparently getting herself into the chair on her own. She was experiencing left-sided flank pain radiating to the mid thoracic spine. She is not tender and does not have any pain when I see her. She will be observed overnight to clarify the cause of this pain as it was quite disabling, preventing her from going home, and to evaluate with PT and OT as to what can be done for her repeated falls. She is very frail appearing, looks malnourished and cachectic. She apparently ?fell out of bed? 2 days ago. She does not drink alcohol or smoke currently. Her workup including chest x-ray and labs are all normal or close to normal. There is no signs of a UTI or pneumonia. A head CT shows no acute bleed. The chest x-ray is obscured over the level of the T-spine that is most pertinent but does not appear to show any obvious fractures. The ribs look intact. A CK and EKG will be added. She lives alone in her own home with her nephew living a few blocks away. His name is Joaquim Angelo. Her [id number] is his other sibling who actually lives in [place]. She was quite combative in the CT scanner, requiring morphine and fentanyl for sedation. 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 Patient History Medical History Vascular dementia (Chronic) Essential hypertension (Chronic 07/05/16) Hyperlipidemia (Chronic) Stenosis of aorta (Chronic 12/28/10) Atrial septal aneurysm (Chronic 07/06/15) Atrial fibrillation with RVR (Chronic) Current smoker (Chronic) Chronic obstructive pulmonary disease (Chronic) Aortic stenosis (Acute) Atrial fibrillation (Acute) Atrial septal aneurysm (Acute) COPD (chronic obstructive pulmonary disease) (Acute) Essential hypertension (Acute) Hyperlipidemia (Acute) Macular degeneration (Acute) Memory deficit (Acute) Smoker (Acute) Abdominal bruit (Inactive) Aortic valve disorder (Inactive) Carotid bruit (Inactive) Heart murmur (Inactive) History of chicken pox (Inactive) History of measles (Inactive) History of mumps (Inactive) Leukoplakia (Inactive) Sebaceous cyst of labia (Inactive) Seborrheic keratosis (Inactive) Surgical History (Updated 08/12/18 @ 17:54 by Yesi Fitzpatrick MD) History of sinus surgery (Acute) History of sinus surgery (Inactive) Family History (Updated 08/12/18 @ 17:40 by Yesi Fitzpatrick MD) Brother Diabetes mellitus Heart disease Father MVA (motor vehicle accident) Mother MVA (motor vehicle accident) Sister No problems noted. Social History Smoking Status: Current every day smoker Tobacco: How many years used: 60 second hand exposure: No alcohol intake: never substance use type: does not use caffeine: No Family & Social History Family History (Updated 08/12/18 @ 17:40 by Yesi Fitzpatrick MD) Brother Diabetes mellitus Heart disease Father MVA (motor vehicle accident) Mother MVA (motor vehicle accident) Sister No problems noted. Safety & Behavioral: Feels Safe in Current Yes Environment Been Physically Hurt or No Threatened By a Person Tobacco & Substance use: Smoking Status Current every day smoker alcohol intake never Substance Use Type does not use Meds Home Medications Medication Instructions Recorded Confirmed Type aspirin 81 mg PO DAILY #0 10/10/16 08/12/18 History diltiazem CD 300 mg 300 mg PO DAILY #90 cap 07/05/18 08/12/18 Rx capsule,extended release 24 hr chlorthalidone 12.5 mg PO DAILY 08/12/18 08/12/18 History lisinopril 20 mg PO DAILY 08/12/18 08/12/18 History Allergies Allergy/AdvReac Type Severity Reaction Status Date / Time diazepam [DIAZEPAM] AdvReac Severe loses Verified 08/12/18 10:05 balance easily azithromycin [AZITHROMYCIN] AdvReac Intermediate Fatigue, Verified 08/12/18 10:05 felt run down Review of Systems Review of Systems Positive for left chest pain, thoracic spine pain, confusion, falls. Negative for angina, shortness of breath, palpitations, fevers, chills, sweats, coughing, abdominal pain, nausea, vomiting, diarrhea, bleeding, dysuria, rash, seizures, headaches, new allergies. Exam Vital Signs (past 8 hours): - 08/12/18 10:05 08/12/18 13:00 08/12/18 13:30 Temperature 97.7 F Pulse Rate 85 85 80 Respiratory Rate 22 15 Blood Pressure 169/54 H Blood Pressure [Left Arm] 146/50 H 152/49 H Pulse Oximetry 93 90 L 91 08/12/18 15:00 08/12/18 16:30 08/12/18 17:23 Temperature Pulse Rate 84 78 80 Respiratory Rate 24 17 14 Blood Pressure 153/50 H Blood Pressure [Left Arm] 170/66 H 165/61 H Pulse Oximetry 96 90 L 97 Oxygen Delivery Method Nasal Cannula Oxygen Flow Rate 2 Narrative Exam Narrative: She is quite lucid during my interview but had been confused and combative earlier. Alert and oriented x3. She gives a very coherent history except for substantial gaps in the last day or 2 which she then tries to fill-in in a way that sounds confabulating. Pupils are equally round and reactive to light and accommodation. Extraocular muscles are intact. Sclerae are pink and nonicteric. Throat looks normal. No lymph nodes are felt head, neck, supraclavicular area. JVD is less 6 cm. No carotid bruits are heard. There is no thyromegaly. Heart is regular rate and rhythm with a 2/6 systolic ejection murmur. Lungs are clear to auscultation bilaterally. There is no left chest wall rib tenderness. There is no thoracic spinal level tenderness. Abdomen is soft, bowel sounds positive, very weak abdominal wall, no organomegaly, nontender. Extremities have no ankle edema. Neuro exam cranial nerves 2-12 tested intact motor is 3/5 throughout. She is diffusely weak. There is no tremor. There is no parkinsonism. Gait and balance are not tested. Skin no jaundice or rash but she does have significant purplish bruising on the backs of both hands and the backs of both forearms. Objective Labs Result Diagrams: 08/12/18 13:15 08/12/18 13:15 Labs: Laboratory Results - last 24 hr 08/12/18 08/12/18 08/12/18 13:15 13:15 13:15 WBC 8.0 RBC 4.27 Hgb 12.3 Hct 36.1 MCV 84.5 MCH 28.9 MCHC 34.2 RDW 16.7 H Plt Count 321 Neut % (Auto) 86.2 H Lymph % (Auto) 8.6 L [place] % (Auto) 3.8 Eos % (Auto) 0.7 L Baso % (Auto) 0.7 Neut # (Auto) 6900 Lymph # (Auto) 700 L [place] # (Auto) 300 Eos # (Auto) 100 Baso # (Auto) 100 Sodium 134 L Potassium 4.0 Chloride 96 L Carbon Dioxide 29 BUN 28 H Creatinine 0.60 Estimated GFR > 60.0 BUN/Creatinine Ratio 46.7 H Glucose 101 Lactate Calcium 9.4 Total Bilirubin 0.5 AST 38 H ALT 45 Alkaline Phosphatase 99 Total Creatine Kinase 38 CK-MB (CK-2) TNP CK-MB (CK-2) Rel Index TNP Troponin I < 0.012 B-Natriuretic Peptide < 100 Total Protein 6.9 Albumin 4.1 Globulin 2.8 Albumin/Globulin Ratio 1.5 Urine Color Urine Appearance Urine pH Ur Specific [place] Urine Protein Urine Glucose (UA) Urine Ketones Urine Occult Blood Urine Nitrate Urine Bilirubin Urine Urobilinogen Ur Leukocyte Esterase Urine RBC Urine WBC Ur Squamous Epith Cells Ur Transition Epith Cell Ur Renal Epithelial Cell Urine Bacteria Ur Culture Indicated? Urine Opiates Screen Ur Oxycodone Screen Urine Methadone Screen Ur Barbiturates Screen U Tricyclic Antidepress Ur Phencyclidine Scrn Ur Amphetamines Screen U Methamphetamines Scrn Ur MDMA Scrn (Ecstasy) U Benzodiazepines Scrn Urine Cocaine Screen U Marijuana (THC) Screen 08/12/18 08/12/18 08/12/18 13:15 13:30 13:30 WBC RBC Hgb Hct MCV MCH MCHC RDW Plt Count Neut % (Auto) Lymph % (Auto) [place] % (Auto) Eos % (Auto) Baso % (Auto) Neut # (Auto) Lymph # (Auto) [place] # (Auto) Eos # (Auto) Baso # (Auto) Sodium Potassium Chloride Carbon Dioxide BUN Creatinine Estimated GFR BUN/Creatinine Ratio Glucose Lactate 0.8 Calcium Total Bilirubin AST ALT Alkaline Phosphatase Total Creatine Kinase CK-MB (CK-2) CK-MB (CK-2) Rel Index Troponin I B-Natriuretic Peptide Total Protein Albumin Globulin Albumin/Globulin Ratio Urine Color Yellow Urine Appearance Sl cloudy Urine pH 5.0 Ur Specific [place] 1.020 Urine Protein Negative Urine Glucose (UA) Negative Urine Ketones Negative Urine Occult Blood Trace-intact Urine Nitrate Negative Urine Bilirubin Negative Urine Urobilinogen 0.2 Ur Leukocyte Esterase Negative Urine RBC 1-5/hpf Urine WBC 0-1/hpf Ur Squamous Epith Cells 1-5 /hpf Ur Transition Epith Cell 1-5/hpf Ur Renal Epithelial Cell 0-1/hpf Urine Bacteria Many (>30) H Ur Culture Indicated? Cult not indicated Urine Opiates Screen Negative Ur Oxycodone Screen Negative Urine Methadone Screen Negative Ur Barbiturates Screen Negative U Tricyclic Antidepress Negative Ur Phencyclidine Scrn Negative Ur Amphetamines Screen Negative U Methamphetamines Scrn Negative Ur MDMA Scrn (Ecstasy) Negative U Benzodiazepines Scrn Negative Urine Cocaine Screen Negative U Marijuana (THC) Screen Negative Assessment & Plan Assessment & Plan narrative: Repeated Falls -observe overnight on telemetry. -check CK level and EKG -check thoracic spine x-ray -PT and OT evaluation in the morning for potential discharge home or placement. Left Chest Wall Pain -check CK -order thoracic spine x-ray to rule out compression fracture -if this is early shingles than the rash should be present with in a day or 2. Vascular Dementia -this has been particularly noticeable today during her emergency department workup. Aortic Stenosis -followed by Cardiology Atrial Fibrillation -followed by Cardiology -continue diltiazem and aspirin COPD/Chronic Hypoxia -continue chronic 3 L nasal cannula, currently 96% Atrial Septal Aneurysm -followed by Cardiology, unlikely to be related to this hospital episode Essential hypertension -continue diltiazem and lisinopril Hyperlipidemia -treatment status unclear -no current lipid lowering medicines reported at home Macular degeneration -low vision can certainly be related to falls.
[2018-08-12] MEDS: DEXTROSE 5%-0.9% NS 1,000 ML 75 ML IV (18:22)
--- NOTE | 2018-08-12 18:39 | PC.NURSE ---
Addendum entered by Christa Ocampo R.N. 08/12/18 19:59: 1950 bed alarm sounding, this RN and ION EXCHANGE OPERATOR entered room to find pt sitting up in bed stating wanting to get up to the bathroom. assisted pt to/from bedside commode without any notable pain but once pt tried to reposition in bed started clutching her back again help me. why am i being punished.. pt moved to her left side just leave me like this. it's the only way i'm fine. currently resting with eyes closed, respirations equal and unlabored. bed alarm on. offered pt food, refused. per ICU pt is now in A-fib with HR low 100s. bed alarm on. call light in reach. Original Note: admit pt to ac from er via stretcher. pt arrived hunched to her right side and clutching her left side stating pain. I just want to go home or . why are you putting me through all this. Pt has lidocaine patch to left lateral mid thoracic area. Pt grabbing at side rails and staff when staff attemting to move via slider board from stretcher to bed. bruising to extremities with large purple bruise and dime sized skin tear at left upper arm just proximal to elbow. Telfa and kerlex dressing placed. pt favoring right side. states need to void. attempt to help pt onto bedpan very difficulty as pt pulls at staff. pt immediately pulled bed colbert out I just can't handle all of this. i just want to . This RN and ION EXCHANGE OPERATOR using mechanical bed to assist with rolling pt but pt still yells out. Pt thrashed onto her left side now this is enough. just let me . and has been resting with FLACC 0 since. 2L O2 on per pt's home routine. Tele monitor on. Refusing SCDs. IVF per order. Brief on. Bed alarm on and family at bedside supportive of care with good interaction noted.
[2018-08-12 18:40] LABS: Creatine Kinase 38 U/L (30-135)
[2018-08-12 20:34] LABS: Culture Indicated Urine Specimen Cultured
[2018-08-13] VITALS (11 sets, daily range): BP systolic 106–195; BP diastolic 59–78; PULSE 64–118; RESP 16–20; TEMP 36.6–37.3; O2SAT 84–97
--- NOTE | 2018-08-13 01:23 | PC.NURSE ---
Addendum entered by Meggan Gutierres R.N. 08/13/18 05:24: Gets easily upset when disturbed for any cares. States I'm not an object on a shelf, I'm a person, I never asked for any of this. Screams out when turned onto back to change incontinent pad. Is easily reassured when spoken to in calming voice and responds with patting RN hand but stating I want to and just leave me alone. O2 sat 84% on 3L oxygen so increased to 4L and now sat is at 93%. HR fluctuating up to 122. Original Note: Addendum entered by Meggan Gutierres R.N. 08/13/18 01:28: Correction: telemetry reading was afib RVR. Original Note: Patient is oriented to self and birthday and does know year. Breath sounds coarse with inspiratory/expiratory rhonchi throughout. Note harsh sounding non productive cough. Oxygen at 3L/min per NC with sat of 92%. HR irregular; telemetry reading was afib CVR and has hx of afib. Denies nausea. BT present but hypoactive. Has been incontinent of urine so is wearing pull up. Refusing to reposition in bed so unable to assess patient ability although evening RN reported patient had at one point set off bed alarm and was sitting up on edge of bed. Currently lying in semi position on right side. Noted bruising on bilateral UE. Allevyn dressing to right elbow is CDI. Dressing over skin tear on left elbow is also CDI. When asked about pain patient states she is in pain but does not respond as to where pain is or the severity; states just let me sleep and I'll be okay. GERALDO stockings applied as per MD order. Fall risk score is high and bed alarm is activated.
[2018-08-13] MEDS: HYDROCODONE/ACET 5/325 TABLET 1 TAB PO ×2 (05:21→21:34)
[2018-08-13] MEDS: DEXTROSE 5%-0.9% NS 1,000 ML 75 ML IV (09:34)
[2018-08-13] MEDS: LISINOPRIL 20 MG TABLET PO (10:10)
[2018-08-13] MEDS: CHLORTHALIDONE 25 MG TABLET 12.5 MG PO (10:11)
[2018-08-13] MEDS: ASPIRIN EC 81 MG TABLET PO (10:11)
[2018-08-13] MEDS: dilTIAZem CD 180 MG CAP PO (10:13)
[2018-08-13] MEDS: ACETAMINOPHEN 325 MG TABLET 650 MG PO ×3 (10:13→21:19)
[2018-08-13] MEDS: CEFTRIAXONE 2 GM/50 ML FROZ.PIGGY IV (10:14)
[2018-08-13] MEDS: dilTIAZem CD 120 MG CAP PO (10:14)
[2018-08-13 10:28] LABS: Add Manual Diff / Slide Review NO; Basophils Absolute Auto 100 /uL (0-100); Basophils Percent Auto 0.8 % (0-2); Eosinophils Absolute Auto 100 /uL (0-450); Eosinophils Percent Auto 1.3 % (2-4); Hematocrit 37.8 % (36-46); Hemoglobin 12.6 g/dL (12.0-16.0); Lymphocytes Absolute Auto 1100 /uL (1100-4500); Lymphocytes Percent Auto 13.7 % (25-40); Mean Corpuscular HGB Conc 33.4 % (30-36); Mean Corpuscular Hemoglobin 28.5 PG (26-34); Mean Corpuscular Volume 85.3 fL (80-100); Monocytes Absolute Auto 700 /uL (0-900); Monocytes Percent Auto 8.2 % (3-14); Neutrophils Absolute Auto 6400 /uL (1500-7000); Platelet Count 379 X10^3/uL (150-400); Red Blood Cell Count 4.44 X10^6/uL (4.0-5.2); Red Cell Distribution Width 16.4 % (11.6-14.8); White Blood Cell Count 8.4 X10^3/uL (4.5-11.0)
[2018-08-13 10:34] LABS: Blood Urea Nitrogen 15 mg/dL (7-17); Calcium 8.9 mg/dL (8.4-10.2); Carbon Dioxide 30 mmol/L (22-32); Chloride 98 mmol/L (98-107); Estimated Glomerular Filt Rate > 60.0 mL/min (>60); Glucose 106 mg/dL (80-110); HEMOLYSIS < 15 (0-50); Magnesium 1.7 mg/dL (1.6-2.3); Potassium 3.6 mmol/L (3.4-5.1); Sodium 134 mmol/L (137-145)
--- NOTE | 2018-08-13 10:50 | PT.IIE ---
Surgical History (Last Updated 08/12/18 @ 17:54 by Yesi Fitzpatrick MD) History of sinus surgery (Acute) History of sinus surgery (Inactive) Medical History (Last Reviewed 08/12/18 @ 17:38 by Yesi Fitzpatrick MD) Vascular dementia (Chronic) Essential hypertension (Chronic 07/05/16) Hyperlipidemia (Chronic) Stenosis of aorta (Chronic 12/28/10) Atrial septal aneurysm (Chronic 07/06/15) Atrial fibrillation with RVR (Chronic) Current smoker (Chronic) Chronic obstructive pulmonary disease (Chronic) Aortic stenosis (Acute) Atrial fibrillation (Acute) Atrial septal aneurysm (Acute) COPD (chronic obstructive pulmonary disease) (Acute) Essential hypertension (Acute) Hyperlipidemia (Acute) Macular degeneration (Acute) Memory deficit (Acute) Smoker (Acute) Abdominal bruit (Inactive) Aortic valve disorder (Inactive) Carotid bruit (Inactive) Heart murmur (Inactive) History of chicken pox (Inactive) History of measles (Inactive) History of mumps (Inactive) Leukoplakia (Inactive) Sebaceous cyst of labia (Inactive) Seborrheic keratosis (Inactive) Physical Therapy Inpatient Evaluation/Re-Eval M1 PT/OT-IP Prior Functional Status Start: 08/13/18 11:09 Freq: NEEDED Status: Active Protocol: Document 08/13/18 10:50 RS (Rec: 08/13/18 11:31 RS [id number]) Medical Review Prior Functional Status Medical History Reviewed Yes Diet/Fluid Consistency Regular Communication no known issues Mobility and Gait ind without device, does endorse frequent recent falls Activities of Daily Living and IADL's family does grocery shopping, handles finances, and prepares medi-set, but pt does all house chores including cooking (does do a lot of microwaving ), denies needing assist with any other self-care activities Prior Functional Level (Other details) pt reports not driving only since back pain started yesterday, questionable historian, some contradictory information Social History Household Members none Living Arrangements House Number of Floors (Floors) Two Floors Number of Stairs To Enter/Railing? no stairs to enter split level home, 8+8 stairs inside Additional Social History Comment nephew Joaquim and his Petra provide a lot of social support, unclear on level of physical assist needed M2 PT-IP Current Condition Start: 08/13/18 11:09 Freq: NEEDED Status: Active Protocol: Document 08/13/18 10:50 RS (Rec: 08/13/18 11:31 RS [id number]) Physical Therapy Current Condition Current Condition Evaluation Date 08/13/18 Treatment Diagnosis impaired mobility Onset Date 08/12/18 M3 PT-IP Subjective Start: 08/13/18 11:09 Freq: NEEDED Status: Active Protocol: Document 08/13/18 10:50 RS (Rec: 08/13/18 11:31 RS [id number]) Subjective Physical Therapy Visit Type Type Initial Evaluation Visit Start Time 09:50 Visit Stop Time 10:50 Total Visit Minutes 60 Physical Therapy Visit Comments Patient Comments Pt very verbose and particular about her care in a pleasant manner. Pt reports regretting coming to the hospital and only came for answers, didn't want to stay for all the various testing. Patient Goals go home nikki Therapy Pain Assessment Pain When Pain Assessed At Rest Pain Present Pain Present Denied Pain M4 PT-IP Mobility and Gait Start: 08/13/18 11:09 Freq: NEEDED Status: Active Protocol: Document 08/13/18 10:50 RS (Rec: 08/13/18 11:31 RS [id number]) PT-Bed Mobility Assessment Rolling Type of Rolling Roll to Right Level of Assist Minimal Assistance Supine to Sit Supine to Sit Moderate Assistance Sit to Supine Sit to Supine Moderate Assistance PT-Transfer Assessment Comments Mobility Comments Pt with minimal participation, not wanting to move as she wasn't having pain at rest in R sidelying. Will need to finish mobility assessment in subsequent sessions. Per RN, pt was found sitting at EOB, got there without assist, so patient is likely capable of much more than was completed during this session. Gait Assessment Comments Gait Comments not assessed Stair Climbing Assessment Comments Stair Climbing Comments not assessed PT-Balance Assessment Comments Other Balance Tests/Deviations/Treatment Standing balance not tested, : sitting balance significantly limited by back pain. M5 PT-IP Objective Assessments Start: 08/13/18 11:09 Freq: NEEDED Status: Active Protocol: Document 08/13/18 10:50 RS (Rec: 08/13/18 11:31 RS [id number]) Gross Range of Motion Upper Extremity ROM Assessment Within Functional Limits Lower Extremity ROM Assessment Within Functional Limits Impairments Pt able to move through normal ROM while lying in sidelying, no reported change in pain levels. Strength Comments Strength Comments BLE not formally assessed but at least 2+/5 observed M6 PT-IP Treatment Start: 08/13/18 11:09 Freq: NEEDED Status: Active Protocol: Document 08/13/18 10:50 RS (Rec: 08/13/18 11:31 RS [id number]) Physical Therapy Treatment Education Education Provided Safety M7 PT-IP Assessment and Plan Start: 08/13/18 11:09 Freq: NEEDED Status: Active Protocol: Document 08/13/18 10:50 RS (Rec: 08/13/18 11:31 RS [id number]) PT Summary Assessment and Plan Potential Rehabilitation Potential Fair Status of Condition at Evaluation Evolving Summary Impairments Pain Strength Balance Cognition Bed Mobility Transfers Gait Activity Tolerance Assessment Summary Pt admitted with back pain, but it seems that pt's most significant limiting factor at this time is impaired cognition. Patient not able to participate in most activity, only performing minimal repositioning in bed. Pt attributes not wanting to move to inevitable increase in back pain, however, pt would not let this functional tester typewriters perform a more thorough examination of her back. Pt prefering to urinate into a towel that attempt to get up to [facility] or use a bed colbert. As mentioned above, pt was found at least once sitting up at EOB, having got there without assist. It is anticipated that as pt's pain improves and cognition hopefully improves, pt will be able to participate in normal mobility activities and might even be able to discharge home with increased assist. Patient has potential for functional improvement. However, in patient's current state she is unsafe to discharge home and will benefit from ongoing daily therapies in the acute and then subacute settings. Will continue to monitor pt's status on a daily basis, pt currently only appropriate for PT treatment 1x/day but may progress to 2x/day if ability to participate improves. Goals Bed Mobility Goal Independent Transfer Goal Independent Gait Goal Independent Gait Distance 50 Days to Meet Goals 4 Frequency of Treatment Frequency Of Treatment Once a Day Treatment Plan Physical Therapy Treatment Plan Bed Mobility Training Transfer Training Gait Training Therapeutic Exercise Balance Retraining Post Op Education Discharge Planning Hot or Cold Pack Neuromuscular Re-ed Coordination Retraining Manual Therapy Other Recommendations and Next Treatment ther ex in bed, mindfulness/ Focus breathing during mobility attempts, attempt up to EOB Recommendations To Nursing Amount of Assist Needed Mechanical Lift Discharge Recommendations PT Discharge Recommendations SNF Rehab
--- NOTE | 2018-08-13 11:56 | OT.IP.TRT ---
Occupational Therapy Treatment Note M3 OT- IP Subjective and Pain Start: 08/13/18 11:55 Freq: Status: Active Protocol: Document 08/13/18 11:55 [facility] (Rec: 08/13/18 11:56 [facility] [id number]) OT- Subjective Occupational Therapy Visit Type Type Patient Refusal Notes Attempted OT eval with pt , initially agreed to get up and then states too tired to move and not willing to move. Pt states just wanting to rest. To check on pt tomorrow for OT eval
--- NOTE | 2018-08-13 14:25 | P.PN_ITS ---
Subjective Date Patient Seen: 08/13/18 Interval history: Meghna Sheldon is an 82-year-old female with a past medical history significant for vascular dementia, hypertension, hyperlipidemia, atrial septal aneurysm, atrial fibrillation, and COPD on nocturnal oxygen who presented after possible ground level fall with left flank pain. The patient is resting in bed comfortably and in no acute distress. She reports she is frightened. She has heightened responsiveness and will cry out in pain prior to making any contact. She reports she has pain from head to toe. However, she does point to right flank when reporting pain from head to toe. She is very anxious. She is alert oriented to person only with dementia at baseline but increased confusion per family which limits her review of systems. She is voiding and eliminating without difficulty. Exam Vital Signs (past 8 hours): - 08/13/18 09:00 08/13/18 10:00 08/13/18 14:00 Temperature 98 F 98 F Pulse Rate 86 82 Respiratory Rate 18 16 Blood Pressure 163/72 H 149/78 H Pulse Oximetry 93 95 95 Oxygen Delivery Method Nasal Cannula Oxygen Flow Rate 3 Narrative Exam Narrative: General: Frail and thin elderly female in no acute distress, well-developed, well-nourished, moderate confusion on baseline dementia, patient is very sensitive and extremely anxious/agitated. HEENT: Normocephalic, atraumatic. External ears without defect. Pupils equal, round, and reactive to light. Anicteric sclerae, moist conjunctivae, and no lid lag. Dry oral mucosa. Neck: Supple with full range of motion. No lymphadenopathy or thyromegaly. Cardiovascular: Irregularly irregular with grade 2/6 systolic murmur. No rubs or gallops appreciated. Pulmonary: Clear to auscultation bilaterally without crackles, wheezes, or rhonchi. Normal respiratory effort with no use of accessory muscles. Abdomen: Soft, scaphoid, bowel sounds present, nontender, nondistended. No hepatosplenomegaly or masses appreciated. Extremities: No clubbing, cyanosis, or edema. Skin: Normal temperature, turgor, and texture; no rash, ulcers, or subcutaneous nodules appreciated. Neurological: Cranial nerves grossly intact. Psychiatric: Significantly anxious/agitated. Moderate confusion on baseline dementia. Alert and oriented to person only. Objective Labs Result Diagrams: 08/13/18 10:14 08/13/18 10:14 Labs: Laboratory Results - last 24 hr 08/12/18 08/12/18 08/12/18 13:15 13:30 13:30 WBC RBC Hgb Hct MCV MCH MCHC RDW Plt Count Neut % (Auto) Lymph % (Auto) [place] % (Auto) Eos % (Auto) Baso % (Auto) Neut # (Auto) Lymph # (Auto) [place] # (Auto) Eos # (Auto) Baso # (Auto) Sodium Potassium Chloride Carbon Dioxide BUN Creatinine Estimated GFR BUN/Creatinine Ratio Glucose Calcium Magnesium Total Creatine Kinase 38 Urine Color Yellow Urine Appearance Sl cloudy Urine pH 5.0 Ur Specific [place] 1.020 Urine Protein Negative Urine Glucose (UA) Negative Urine Ketones Negative Urine Occult Blood Trace-intact Urine Nitrate Negative Urine Bilirubin Negative Urine Urobilinogen 0.2 Ur Leukocyte Esterase Negative Urine RBC 1-5/hpf Urine WBC 0-1/hpf Ur Squamous Epith Cells 1-5 /hpf Ur Transition Epith Cell 1-5/hpf Ur Renal Epithelial Cell 0-1/hpf Urine Bacteria Many (>30) H Ur Culture Indicated? Specimen cultured Urine Opiates Screen Negative Ur Oxycodone Screen Negative Urine Methadone Screen Negative Ur Barbiturates Screen Negative U Tricyclic Antidepress Negative Ur Phencyclidine Scrn Negative Ur Amphetamines Screen Negative U Methamphetamines Scrn Negative Ur MDMA Scrn (Ecstasy) Negative U Benzodiazepines Scrn Negative Urine Cocaine Screen Negative U Marijuana (THC) Screen Negative 08/13/18 08/13/18 10:14 10:14 WBC 8.4 RBC 4.44 Hgb 12.6 Hct 37.8 MCV 85.3 MCH 28.5 MCHC 33.4 RDW 16.4 H Plt Count 379 Neut % (Auto) 76.0 H Lymph % (Auto) 13.7 L [place] % (Auto) 8.2 Eos % (Auto) 1.3 L Baso % (Auto) 0.8 Neut # (Auto) 6400 Lymph # (Auto) 1100 [place] # (Auto) 700 Eos # (Auto) 100 Baso # (Auto) 100 Sodium 134 L Potassium 3.6 Chloride 98 Carbon Dioxide 30 BUN 15 Creatinine 0.50 L Estimated GFR > 60.0 BUN/Creatinine Ratio 30.0 H Glucose 106 Calcium 8.9 Magnesium 1.7 Total Creatine Kinase Urine Color Urine Appearance Urine pH Ur Specific [place] Urine Protein Urine Glucose (UA) Urine Ketones Urine Occult Blood Urine Nitrate Urine Bilirubin Urine Urobilinogen Ur Leukocyte Esterase Urine RBC Urine WBC Ur Squamous Epith Cells Ur Transition Epith Cell Ur Renal Epithelial Cell Urine Bacteria Ur Culture Indicated? Urine Opiates Screen Ur Oxycodone Screen Urine Methadone Screen Ur Barbiturates Screen U Tricyclic Antidepress Ur Phencyclidine Scrn Ur Amphetamines Screen U Methamphetamines Scrn Ur MDMA Scrn (Ecstasy) U Benzodiazepines Scrn Urine Cocaine Screen U Marijuana (THC) Screen Assessment & Plan Assessment & Plan narrative: Meghna Sheldon is an 82-year-old female with a past medical history significant for vascular dementia, hypertension, hyperlipidemia, atrial septal aneurysm, atrial fibrillation, and COPD on nocturnal oxygen who presented after possible ground level fall with left flank pain. 1. Acute UTI, present on admission. Active. -Patient presented with left flank pain and increased confusion from baseline. -Urinalysis preliminarily growing gram-negative bacilli. Ordered ceftriaxone 2 g daily pending identification and sensitivities. 2. Acute metabolic encephalopathy on chronic vascular dementia, present on admission. Stable. -Per patient's nephew and niece in law, the patient is more confused than usual. She is currently alert and oriented to person only. -Ordered Seroquel 12.5 mg 3 times daily as needed for anxiety/agitation. 3. Repeated falls, chronic, present on admission. Stable. -Patient more confused than baseline dementia. Possibility of fall? -Creatinine kinase was normal at 38. EKG atrial fibrillation without acute ischemic changes. -Ordered lumbar and thoracic spine x-ray which has not been performed due to patient's inability to remain still. -Ordered PT and OT evaluation and treatment. 4. Aortic stenosis, chronic, present on admission. Presumed stable. -Followed by Cardiology. 5. Paroxysmal atrial fibrillation, chronic, present on admission. Stable. -Followed by Cardiology. -Continue diltiazem CD 300 mg daily and aspirin 81 mg daily 6. COPD, present on admission. Stable. -Continue chronic 3 L nasal cannula, currently 96% 7. Atrial septal aneurysm, chronic, present on admission. Stable. -Followed by Cardiology, unlikely to be related to this hospital episode. 8. Hypertension, chronic, present on admission. Stable. -Continue diltiazem CD 300 mg daily and lisinopril 20 mg daily. 9. Hyperlipidemia, chronic, present on admission. Stable. -Treatment status unclear and there are no current lipid lowering medicines reported at home. 10. Macular degeneration, chronic, present on admission. Stable. -Low vision can certainly be related to falls. Disposition: Likely to discharge in 1-2 days depending on improvement in metabolic encephalopathy and left flank pain with treatment of UTI. Patient will likely need prison facility for rehabilitation and possibly assisted living facility once completed rehab. Quality VTE Deep Vein Thrombosis/Pulmonary Embolism Present on Admission: No
--- NOTE | 2018-08-13 14:32 | OT.IP.EVAL ---
Past Medical History (Last Reviewed 08/12/18 @ 17:38 by Yesi Fitzpatrick MD) Vascular dementia (Chronic) Essential hypertension (Chronic 07/05/16) Hyperlipidemia (Chronic) Stenosis of aorta (Chronic 12/28/10) Atrial septal aneurysm (Chronic 07/06/15) Atrial fibrillation with RVR (Chronic) Current smoker (Chronic) Chronic obstructive pulmonary disease (Chronic) Aortic stenosis (Acute) Atrial fibrillation (Acute) Atrial septal aneurysm (Acute) COPD (chronic obstructive pulmonary disease) (Acute) Essential hypertension (Acute) Hyperlipidemia (Acute) Macular degeneration (Acute) Memory deficit (Acute) Smoker (Acute) Abdominal bruit (Inactive) Aortic valve disorder (Inactive) Carotid bruit (Inactive) Heart murmur (Inactive) History of chicken pox (Inactive) History of measles (Inactive) History of mumps (Inactive) Leukoplakia (Inactive) Sebaceous cyst of labia (Inactive) Seborrheic keratosis (Inactive) Surgical History (Last Updated 08/12/18 @ 17:54 by Yesi Fitzpatrick MD) History of sinus surgery (Acute) History of sinus surgery (Inactive) Occupational Therapy Inpatient Evaluation/Re-Eval M1 PT/OT-IP Prior Functional Status Start: 08/13/18 11:09 Freq: NEEDED Status: Active Protocol: Document 08/13/18 10:50 RS (Rec: 08/13/18 11:31 RS [id number]) Medical Review Prior Functional Status Medical History Reviewed Yes Diet/Fluid Consistency Regular Communication no known issues Mobility and Gait ind without device, does endorse frequent recent falls Activities of Daily Living and IADL's family does grocery shopping, handles finances, and prepares medi-set, but pt does all house chores including cooking (does do a lot of microwaving ), denies needing assist with any other self-care activities Prior Functional Level (Other details) pt reports not driving only since back pain started yesterday, questionable historian, some contradictory information Social History Household Members none Living Arrangements House Number of Floors (Floors) Two Floors Number of Stairs To Enter/Railing? no stairs to enter split level home, 8+8 stairs inside Additional Social History Comment nephew Joaquim and his Petra provide a lot of social support, unclear on level of physical assist needed M1 PT/OT-IP Prior Functional Status Start: 08/13/18 11:55 Freq: NEEDED Status: Active Protocol: Document 08/13/18 14:15 [facility] (Rec: 08/13/18 14:30 [facility] [id number]) Medical Review Prior Functional Status Medical History Reviewed Yes Diet/Fluid Consistency Regular Communication no known issues Mobility and Gait ind without device, does endorse frequent recent falls Activities of Daily Living and IADL's family does grocery shopping, handles finances, and prepares medi-set, but pt does all house chores including cooking (does do a lot of microwaving ), denies needing assist with any other self-care activities Prior Functional Level (Other details) pt reports not driving only since back pain started yesterday, questionable historian, some contradictory information Social History Household Members none Living Arrangements House Number of Floors (Floors) Two Floors Number of Stairs To Enter/Railing? no stairs to enter split level home, 8+8 stairs inside Additional Social History Comment nephew Joaquim and his Petra provide a lot of social support, unclear on level of physical assist needed M2 OT-IP Current Condition Start: 08/13/18 11:55 Freq: Status: Active Protocol: Document 08/13/18 14:15 [facility] (Rec: 08/13/18 14:30 [facility] [id number]) Occupational Therapy Current Condition Current Condition Evaluation Date 08/13/18 Treatment Diagnosis GLF, UTI, metabooic enceph Diagnosis Onset Date 08/12/18 Weight Bearing Status Weight Bearing Status Weight Bear as Tolerated M3 OT- IP Subjective and Pain Start: 08/13/18 11:55 Freq: Status: Active Protocol: Document 08/13/18 14:15 [facility] (Rec: 08/13/18 14:30 [facility] [id number]) OT- Subjective Occupational Therapy Visit Type Type Initial Evaluation Visit Start Time 12:45 Visit Stop Time 13:15 Total Visit Minutes 30 Occupational Therapy Visit Comments Patient Comments Pt inconsistent with wants and needs. Pt requesting to use the bathroom and then not wanting to get up due to too tired. OT Pain Assessment Pain When Pain Assessed At Rest Pain Present Pain Present Denied Pain M5 OT- IP IADL's Start: 08/13/18 11:55 Freq: Status: Active Protocol: Document 08/13/18 14:15 [facility] (Rec: 08/13/18 14:30 [facility] [id number]) OT-Instrumental Activities of Daily Living Medication Management Medication Management Comments Pt states takes her own medications but unable to recall which ones. Money Management Money Management Comments Pt states the bank pays her bills but unable to elaborate on how. Meal Preparation Meal Preparation Comments Pt states recently has not been able to eat or have a decent meal. M6 OT- IP Functional Cognition Start: 08/13/18 11:55 Freq: Status: Active Protocol: Document 08/13/18 14:15 [facility] (Rec: 08/13/18 14:30 [facility] [id number]) Cognitive Factors Limiting Selfcare Function Cognitive Ability Level of Alertness Alert Confusional State Patient Orientation Name Place Attention Span Ability Capable of Focused Attention Unable to Sustain Attention Ability to Follow Commands Able to Follow One Step Commands with Increased Time Able to Follow One Step Commands with Repetition Memory Description Immediate Impaired Short Term Impaired Working Impaired Safety Awareness Underestimates Need for Assistance Problem Solving Ability Unable to Identify Errors Needs Assist to Identify Solutions Executive Function Ability Unable to Make Plans Unable to Organize Plans Unable to Remember Details Cognitive Tests SLUMS Pt scored 12/30 which implies dementia for her education level. However pt's UTI may be affecting her cognition at this time. To retest again as pt becomes more medically stable. Cognitive Comments Cognitive Assessment Comments Pt very apologetic after getting easily upset when asking her questions that she is unable to answer. Pt also get easily frustrated and revert to saying, I am just too tired, I can not do that. Pt initially not knowing how to draw numbers on a clock and wanting to see the clock , but then after seeing the clock only wrote numbers from 12 to 6 and neglecting the left side of the clock. OT- Vision and Hearing OT- Vision Assessment Vision Assessment Comments Pt able to scan the room and read the clock.Unable to follow directions to check for peripheral vision. M7 OT- IP Mobility and Balance Start: 08/13/18 11:55 Freq: Status: Active Protocol: Document 08/13/18 14:15 [facility] (Rec: 08/13/18 14:30 [facility] [id number]) OT-Transfer Assessment Comments Mobility Comments Pt not wanting to get out of the bed, pt able to pull herself up into long sitting. OT- Balance Assessment Comments Other Balance Tests/Deviations/Treatment Not able to fully assess due : to pt's decreased participation at this time. M8 OT- IP Objective Assessments Start: 08/13/18 11:55 Freq: Status: Active Protocol: Document 08/13/18 14:15 [facility] (Rec: 08/13/18 14:30 [facility] [id number]) OT Gross Range of Motion Upper Extremity Range of Motion ROM Impairments WFL for bilateral elbow to distal unable to assess for shoulder at this time. M9 OT- IP Assessment and Plan Start: 08/13/18 11:55 Freq: Status: Active Protocol: Document 08/13/18 14:15 [facility] (Rec: 08/13/18 14:30 [facility] [id number]) OT Summary Assessment and Plan Potential Rehabilitation Potential Fair Analytic Complexity at Evaluation Low Summary OT Impairments Strength Balance Functional Cognition Functional Mobility Dressing Toileting Bathing Toilet Transfers Shower Transfers Progress Towards Goals Slow Progress due to Medical Issues Slow Progress due to Activity Tolerance Slow Progress due to Cognition Assessment Summary Pt low complexity and main barriers are decreased initation, ability to follow and understand directions at this time and decreased functional cognition. Prior pt was [place] and living alone and thus far from baseline and would benefit from skilled rehab. Goals Self-Feeding Goal Independent Grooming Goal Independent Dressing Goal Independent Toileting Goal Independent Bathing Goal Standby Assistance Toilet Transfer Goal Standby Assistance Shower Transfer Goal Standby Assistance Patient/Caregiver Education Goal Caregiver Independent Assisting Patient Days to Meet Goals 7 Frequency of Treatment Frequency Of Treatment Once a Day Treatment Plan OT Treatment Plan ADL Training Functional Cognition Training Functional Mobility Patient/Family Education Discharge Planning Other Treatment Recommendations and Next Stand from grooming, LB Treatment Focus dressing Discharge Recommendations OT Discharge Recommendations SNF Rehab Home Equipment Needs defer to SNF
--- NOTE | 2018-08-13 14:54 | CM.DANOTE ---
DCP/Assessment: Reviewed chart. Pateint is a 85yr old female admitted to [facility] and [facility]. PCP is Evie Kim. Primary payor is 1)Medicare B only 2)[facility]. Spoke with Dr. West this AM in rounds. She reports that patient currently confused with UTI/Bladder infection. Patient also has h/o vascular dementia. APPLICATIONS CONSULTANT made no attempt to meet with patient today because she has been sleeping on/off and somewhat agitated at times. PT/OT/ST evaluations all ordered. Per Dr. West it is anticipated that patient will need SNF when medically stable. APPLICATIONS CONSULTANT met with patient's nearest relatives nephew/Joaquim and niece/Petra at bedside explained CM/SW role. Family reports that patient resides alone in [place]. Patient drives locally few times a week. Patient uses home 02 at night and does not use any equipment for ambulation. Family does report that they check on her daily and that she has gotten more forgetful. FAHAD/Nya another niece is scheduled to be in town on Monday. Family hopeful that patient will be able to go to SNF for short stay when medically stable. Family hope to discuss next steps regarding long-term planning over the next week. Family considering placing patient in assisted/memory care type setting. They are currently looking at [facility]. Community resources provided for long-term placements and in home caregivers. Provided family with SNF list and first choice is [facility]. APPLICATIONS CONSULTANT left vm with Lamar to review for admit. May need authorization with patient's insurance. Family also aware that patient will need to qualify and be willing to go. P: Pending. APPLICATIONS CONSULTANT following closely. [facility] evaluating and checking on insurance. NEELAM Styles Discharge Planning/Care Management CM Discharge Assessment Start: 08/13/18 14:49 Freq: Status: Active Protocol: Document 08/13/18 14:50 KJS (Rec: 08/13/18 14:53 KJS [id number]) Discharge Planning Assessment Assigned Black Top Paver Operator NEELAM Styles Contact Information Nya Roman (niece) Advance Directives? Yes: Living Will with Health Care Directive History Provided By Patient Family Member Medical Record Prior Living Arrangements House Household Members none Type of transporation used prior to Drives own vehicle admit Independent with ADL's Yes Is patient alert and oriented? Not currently Caregiver for Another No Community Services used prior to Oxygen Therapy admission: Patient/Family Preference Jail Facility Barriers to Discharge No Discharge Plan Jail Facility Referrals Initiated Jail Medicare Choice List Provided Yes SNF/HH Preference [facility] Contact Name/Phone Lamar [phone] Has Agency SNF been contacted Yes Whiteboard Updated in Patient Room with Yes name and ext. # of Black Top Paver Operator
--- NOTE | 2018-08-13 15:35 | ST.IPDYTX ---
Care Team Visit Care Team Role Provider Type Evie Kim PA-C Primary Care Provider Advanced Customer Support Advisor Specialty: Medical Address: [address] [place] [address], [place], [address] Email: [email or web address] Zohra Frank [facility] Emergency Provider Advanced Customer Support Advisor Specialty: Emergency Medicine Address: [address] [place] [address], [place], [address] Email: Yesi Fitzpatrick MD Admit Provider Physician Attending Provider Specialty: Medical Address: [address] [place] [address], [place], [address] Email: WAGON PERSON Dysphagia Treatment WAGON PERSON Dysphagia Treatment Start: 08/13/18 15:27 Freq: Status: Active Protocol: Document 08/13/18 15:30 MRM (Rec: 08/13/18 15:35 MRM [id number]) Dysphagia Treatment Session Time Visit Start Time 14:45 Visit Stop Time 15:10 Total Visit Minutes 25 Setting Assessment Location Acute Care Visit Type Note Type Treatment Note Next Note Type Next Note Type Treatment Note Patient Information Identification Type Name ID Wristband Subjective Observations Patient awake and alert, lying in bed with family present. Patient indicated strong flank pain when RN attempted to reposition her for adminstration of medication. She elevated minimaly and remained on her left side for most of the treatment session. Treatment Liquids Trialed Thin Solids Trialed Puree Regular Administration Type Straw Self-Feeding Oral Strategies Lingual Sweep Controlled Bite/Sip Size Alternate Liquids/Solids Dementia Strategies Pharyngeal Strategies Effortful Swallow Treatment Activities Patient trialed thin liquids via straw, puree textures, regular textures and whole pill in puree. No overt s/s of aspiration observed throughout treatment session. Patient independent in intake with mild assistance from WAGON PERSON for holding pudding cup during medication administration. Her largest barrier to safety continues to be extremely poor positioning for intake. However, she continues to strongly resist elevation due to chronic pain. Assessment Patient Response to Treatment Excellent Rehab Potential Excellent Assessment of Improvement No dysphagia. Patient able to tolerate thin liquids and regular textures without overt s/s of aspiration. Able to tolerate medication whole in carrier, one at a time, without difficulty. Recommend continue current diet of regular textures and thin liquids. Please provide tray set up assist and distant supervision during intake due to patient's poor positioning . Please administer medication one at a time in carrier. Check patient's mouth for clearance of all PO meds after administration. WAGON PERSON will follow up tomorrow for diet tolerance check and assessment of cognition, if waranted. Diet Recommendations Recommendations Continue Current Diet Liquids Order Thin Diet Order Regular Medication Recommendations Whole in Carrier One at a Time Comments Distant supervision during meals. Additional Dietary Needs Encourage to Self-Feed Reminders to Use Strategies Aspiration Precautions Recommended Precautions Upright at 90 Degrees Alternate Liquids/Solids Small Bites/Sips Effortful Swallow Check for Pocketing Treatment Plan Placement Recommendation after Discharge Custodial Facility Appropriate for Continued Therapy Yes Therapy Recommendations Diet tolerance assessment next visit. Cognitive assessment next visit, if warranted. Dysphagia Goals Tolerate thin liquids and regular textures without overt s/s of aspiration.
--- NOTE | 2018-08-13 16:48 | ST.IPIE ---
Care Team Visit Care Team Role Provider Type Evie Kim PA-C Primary Care Provider Advanced Toe Former Stitchdowns Specialty: Medical Address: [address] [place] [address], [address] Email: [email or web address] Emergency Provider Advanced Toe Former St[employer]s Specialty: Emergency Medicine Address: [address] [place] [address], [place], [address] Email: Yesi Fitzpatrick MD Admit Provider Physician Attending Provider Specialty: Medical Address: [address] [place] [address], [phone] Email: Past Medical History (Last Reviewed 08/12/18 @ 17:38 by Yesi Fitzpatrick MD) Vascular dementia (Chronic Medical) Essential hypertension (Chronic Medical 07/05/16) Hyperlipidemia (Chronic Medical) Stenosis of aorta (Chronic Medical 12/28/10) Atrial septal aneurysm (Chronic Medical 07/06/15) with suspected PFO - per Dr. Anthony Atrial fibrillation with RVR (Chronic Medical) Current smoker (Chronic Medical) Chronic obstructive pulmonary disease (Chronic Medical) stable on night time oxygen Aortic stenosis (Acute Medical) Atrial fibrillation (Acute Medical) Atrial septal aneurysm (Acute Medical) COPD (chronic obstructive pulmonary disease) (Acute Medical) Essential hypertension (Acute Medical) Hyperlipidemia (Acute Medical) Macular degeneration (Acute Medical) Memory deficit (Acute Medical) Smoker (Acute Medical) Abdominal bruit (Inactive Medical) Aortic valve disorder (Inactive Medical) Carotid bruit (Inactive Medical) Heart murmur (Inactive Medical) History of chicken pox (Inactive Medical) History of measles (Inactive Medical) History of mumps (Inactive Medical) Leukoplakia (Inactive Medical) Sebaceous cyst of labia (Inactive Medical) Seborrheic keratosis (Inactive Medical) ST IP Initial Evaulation Report WASTE WATER TREATMENT PLANT OPERATOR Clinical Swallow Evaluation Start: 08/13/18 15:27 Freq: Status: Active Protocol: Document 08/13/18 15:27 JANIE (Rec: 08/13/18 15:30 JANIE [id number]) Clinical Swallow Evaluation Session Time Visit Start Time 10:10 Visit Stop Time 10:23 Total Visit Minutes [address] West Reason for Referral Dementia precautions, swallow/ cognition Setting Assessment Location Acute Care Visit Type Note Type Initial Evaluation Next Note Type Next Note Type Treatment Note Patient Information Identification Type Name ID Card History 82-yr-old female with history of dementia admitted after an apparent ground level fall at home where she lives alone with a nephew living a few blocks away. Upon hospital admission, there was no sign of a UTI or pneumonia. A head CT showed no acute bleed. The chest x-ray was obscured over the level of the T-spine that is most pertinent but did not appear to show any obvious fractures. The ribs look intact. During hospital stay, the pt has been at times combatant and at other times cooperative. Subjective Observations The pt was lying in bed on her right side resisting repositioning to center and upright in bed d/t significant pain that caused her to call out loudly. She stated, This is not why I came to the hospital. Why don't you just dump me in the street and leave me alone? She did not allow the head of bed to be raised greater than ~30 degrees. Therefore, for pt's safety complete clinical swallow evaluation was not completed, not was the pt appropriate to participate in cognitive-communication evaluation. Given the limited allowable range of positioning , the pt was evaluated taking medication only in order to reduce pain and meet primary medical needs. Prior to medication administration, the pt participated in a blood draw and was more cooperative after , stating, You all are doing a good job. I really love people. She then was agreeable to taking her medication. Evaluation Liquids Trialed Thin Solids Trialed Puree Administration Type Tea Spoon Straw Dependent Feeding Oral Phase Comments Pt has natural teeth in adequate condition for age. Oral phase with limited trials appears to be WFL. She exhibited appropriate oral acceptance and anterior containment of bolus. No oral residue observed post-swallow with exception of 1 pill that did not clear oral cavity with first swallow but did clear with subsequent bite of applesauce. The pt was aware of the pill and informed Nsg/ WASTE WATER TREATMENT PLANT OPERATOR and requested the additional applesauce. Pharyngeal Phase Comments The pt exhibited no overt s/sx of aspiration with consumption of 1 or 2 pills at a time taken in applesauce or with 1 sip of thin liquid via straw in a largely reclined position. Cannot rule out premature spillage to pharynx given this compromised position, and such positioning is not recommended for oral intake. Findings Dysphagia Type Needs further assessment Impressions Administration of medication while the pt was in a reclined position was performed under close supervision of 2 Nurses and a Speech Pathologist in order to relieve the pt of pain so that she may be able to participate in further medical care in greater comfort and safety. Suspect the pt is at low risk of aspiration, given she exhibited no overt s/sx of aspiration with limited trials in a less than ideal body position. However, further evaluation is necessary to determine presence or absence of dysphagia and aspiration risk and ideally will take place when the pt is able to maintain a more upright position. Diet Recommendations Liquids Order Thin Diet Order Regular Medication Recommendations Whole in Carrier Additional Dietary Needs 1:1 Supervision 1:1 Assistance Encourage to Self-Feed Aspiration Precautions Recommended Precautions Upright at 90 Degrees Small Bites/Sips Treatment Plan Appropriate for Therapy Yes Therapy Recommendations Further assessment of swallow safety and of cognitive- communication skills Dysphagia Goals The pt will participate in further assessment of swallow function/safety in order to determine least restrictive diet and guide POC. The pt will tolerate least restrictive diet to meet her nutrition and hydration needs. WASTE WATER TREATMENT PLANT OPERATOR Follow Up Further assessment later today
--- NOTE | 2018-08-13 20:09 | PC.NURSE ---
Addendum entered by Christie Gómez R.N. 08/13/18 20:16: 2000- telemetry in place with NSR-64, and NSR-70. Pt watching TV and reports comfortable. BSC to void and wearing brief. Original Note: 1999- Pt IV bleeding, drsg soiled with blood and drsg to left ST hanging off arm. Cleaned and changed drsg to an alevyn, to left elbow ST. cleaned and reinforced left hand IV, re dressed, mesh covering, D5NS @ 75. Changed bed linen. Pt alert and confused but, pleasant and cooperative. 95% 1L nc, LS clear, denies SOB. BT+ denies nausea, denies pain. Multiple bruises to arms, from recent falls. speech eval with no aphasia, ok to use straw, refuses to sit up in bed, meds in carrier, whole. bed alarm on.
[2018-08-13] MEDS: QUETIAPINE 25 MG TABLET 12.5 MG PO (23:47)
--- NOTE | 2018-08-14 | DI.RAD.S_ITS ---
PROCEDURE: XR THORACIC SPINE 2V INDICATIONS: Back pain after fall, Compression fractures?? TECHNIQUE: 2 views of the thoracic spine were acquired. COMPARISON: [facility], CR, CHEST 2 VIEW, 12/26/2012, 16:07. [facility], CT, CT ABDOMEN PELVIS W CON, 04/11/2018, 16:07. [facility], CR, XR CHEST 2V, 04/12/2018, 20:20. FINDINGS: Bones: There has been compression fractures at the thoracolumbar junction which with reference to the current study counting from the first rib and inferiorly the last thoracic vertebral body that appears fully intact is considered T11 and T12 demonstrates a moderately severe compression fracture previously present in L1 demonstrates a moderate compression fracture, previously present. The comparison chest plain film from 04/12/18 shows an intact appearance of T9 and on the current study there is a mild to moderate degree of wedge compression of T9, not present only several months ago. No suspicious bony lesions. 12 pairs of ribs are noted, and appear intact where visualized. Soft tissues: No paravertebral stripe thickening. IMPRESSION: Previously present moderately severe T12 and moderate L1 compression fracture stable over time. New findings of mild to moderate T9 compression fracture absent 04/12/18 and therefore likely associated with the recent pain after trauma. MR scanning can accurately establish chronicity of such injuries. Dictated by: Giovanni Casillas M.D. on 08/14/2018 at 14:15 Approved by: Giovanni Casillas M.D. on 08/14/2018 at 14:32
--- NOTE | 2018-08-14 | DI.RAD.S_ITS ---
PROCEDURE: XR LUMBAR SPINE 2-3V INDICATIONS: Back pain after fall, Compression fractures?? TECHNIQUE: 2 views of the lumbar spine were acquired. [facility], 16:38. [facility], [place], XR CHEST 2V, 04/12/2018, 20:20. FINDINGS: Bones: 5 [id number] vertebrae are present. There is mildly kyphotic bony alignment centered at the thoracolumbar junction where a T12 and L1 compression fracture can be seen, moderately severe at T12 and moderate in severity at L1, chronic in appearance with reference to prior plain film imaging of the chest.. No vertebral body compression fractures. No suspicious bony lesions. Note is made of moderately severe L5-S1 degenerative disc disease in the mild to moderate degenerative disc disease more superiorly. Facet osteoarthritis is mild to moderate over the middle and lower thirds of the LS spine. Soft tissues: Overlying bowel gas pattern is normal. No suspicious soft tissue calcifications. IMPRESSION: For purposes of interpretation of this study the most prominent lumbosacral spine compression fracture, moderately severe, is considered to be T12 and there is a moderate L1 compression fracture and below this level the lumbosacral spine degenerative changes are moderate to moderately severe. The compression fractures seen at the thoracolumbar junction are chronic. Dictated by: Giovanni Casillas M.D. on 08/14/2018 at 13:50 Approved by: Giovanni Casillas M.D. on 08/14/2018 at 13:56
--- NOTE | 2018-08-14 02:30 | PC.NURSE ---
2300- Pt A+Ox1--to self. Lying in bed w/ BA activated; states she needs to get up and going. CO lower back pain; moving 1PA to BSC wearing brief for incontinence. D5 NS running as ordered into L forearm IV. Bruises noted throughout arms; L skin tear covered. 0000- Pt agitated attempting to get out of bed. PO Seroquil given, swallowed w/ applesauce w/o difficulty. 0545- Pt agitated and confused, throwing her arms around. Unable to obtain vital signs at this time. 0600- Tried to obtain vitals a second time and patient refused again. Bed alarm activated, side rails up. 0630- Pt remains extremely agitated and in pain, Seroquil given to help calm pt down. Chela has been watching patient 1:1
[2018-08-14] MEDS: QUETIAPINE 25 MG TABLET 12.5 MG PO ×2 (06:30→20:03)
[2018-08-14 08:05] VITALS: BP 156/56; PULSE 70; RESP 18; TEMP 36.3; O2SAT 92
--- NOTE | 2018-08-14 09:14 | SLP.IPNOTE ---
Dysphagia tx attempted with breakfast. Per Nsg, pt had restless night, was given sleeping aid at 06:30 and is now sleeping. Will f/u later in the day.
[2018-08-14] MEDS: CEFTRIAXONE 2 GM/50 ML FROZ.PIGGY IV (09:42)
[2018-08-14] MEDS: HYDROCODONE/ACET 5/325 TABLET 1 TAB PO ×2 (09:51→17:19)
[2018-08-14] MEDS: ACETAMINOPHEN 325 MG TABLET 650 MG PO ×3 (09:52→20:03)
[2018-08-14] MEDS: CHLORTHALIDONE 25 MG TABLET 12.5 MG PO (09:53)
[2018-08-14] MEDS: ASPIRIN EC 81 MG TABLET PO (09:53)
[2018-08-14 10:00] VITALS: BP 164/77; PULSE 87; O2SAT 91
[2018-08-14] MEDS: dilTIAZem CD 120 MG CAP PO (10:00)
[2018-08-14] MEDS: LISINOPRIL 20 MG TABLET PO (10:00)
[2018-08-14] MEDS: dilTIAZem CD 180 MG CAP PO (10:00)
--- NOTE | 2018-08-14 10:54 | PC.NURSE ---
Addendum entered by Brook Fisher R.N. 08/14/18 14:05: Pt has sat in chair from 1200 to now (1405). Up with 1PA to wheelchair to go to [facility]. Tolerated well, when back to unit, pt resettled back into recliner chair with chair alarm. Family has been in/out throughout shift. Petra/Joaquim who spoke with Alma with Social Work. Original Note: Addendum entered by Brook Fisher R.N. 08/14/18 12:10: Around 1145, OT in room, pt originally refused to get OOB, states wants to sleep. Had a tiring night. With encouragement to move slowly and reassure this scientific technical writer and OT are here to help. Pt pivot transferred to BSC, INC large amount urine in brief and voided approx 200mls more on BSC. No BM, no flatus heard. Pt then transferred to recliner chair. Chair alarm placed. Pt now eating lunch indep with out difficulty. Original Note: Day Shift- Pt sleeping this morning, unable to arouse enough to have breakfast. 1:[address] monitoring this AM. At 0950, pt more awake, morning scheduled medications given whole one at a time with water. No difficulty noted, however pt upset my how many pills she was taking. Had 2 spoonfuls of apple sauce and 3 spoonfuls of soft peaches. Update given to Pt's [id number] Petra in to see pt around 0930, brief update given. September states that pt normally knows her name, where she is, the current month. Lives alone and Petra and her Joaquim check in on her every day. Also that pt bathes herself, dresses herself, makes coffee, microwaves meals. Pt does occasionally smokes cigarettes, and uses Oxygen concentrator at night. Does have slight expiratory wheeze to bilateral upper lobes, diminished AE throughout lung freeman. O2 sat 91-92% on RA. High fall risk precautions in place, bed alarm on.
[2018-08-14 13:06] VITALS: BMI 19.2
--- NOTE | 2018-08-14 13:10 | OT.IP.TRT ---
Current Diagnoses Urinary tract infection, site not specified (08/12/18) Occupational Therapy Treatment Note M2 OT-IP Current Condition Start: 08/13/18 11:55 Freq: Status: Active Protocol: Document 08/13/18 14:15 [facility] (Rec: 08/13/18 14:30 [facility] [id number]) Occupational Therapy Current Condition Current Condition Evaluation Date 08/13/18 Treatment Diagnosis GLF, UTI, metabooic enceph Diagnosis Onset Date 08/12/18 Weight Bearing Status Weight Bearing Status Weight Bear as Tolerated M3 OT- IP Subjective and Pain Start: 08/13/18 11:55 Freq: Status: Active Protocol: Document 08/14/18 12:44 [facility] (Rec: 08/14/18 13:10 [facility] [id number]) OT- Subjective Occupational Therapy Visit Type Type Treatment Note Visit Start Time 12:45 Visit Stop Time 13:15 Total Visit Minutes 30 Occupational Therapy Visit Comments Patient Comments Pt needing lots of encouragement to get up , nursing also present to encourage pt. OT Pain Assessment Pain When Pain Assessed At Rest Pain Present Pain Present Pain Reported Location Left Back Scale Used pt not able to state pain level M4 OT- IP ADL's Start: 08/13/18 11:55 Freq: Status: Active Protocol: Document 08/14/18 12:44 [facility] (Rec: 08/14/18 13:10 [facility] [id number]) OT ADL-Toileting General Evaluation Toileting Ability Maximum Assistance Areas Needing Assistance Manage Clothing Perform Perineal Hygiene Comments OT Toileting Comments One person to stand with pt with FWW MODA x1 and another person to help with hygiene and brief needs. M5 OT- IP IADL's Start: 08/13/18 11:55 Freq: Status: Active Protocol: Document 08/13/18 14:15 [facility] (Rec: 08/13/18 14:30 [facility] [id number]) OT-Instrumental Activities of Daily Living Medication Management Medication Management Comments Pt states takes her own medications but unable to recall which ones. Money Management Money Management Comments Pt states the bank pays her bills but unable to elaborate on how. Meal Preparation Meal Preparation Comments Pt states recent has not been able to eat or have a decent meal. M6 OT- IP Functional Cognition Start: 08/13/18 11:55 Freq: Status: Active Protocol: Document 08/14/18 12:44 [facility] (Rec: 08/14/18 13:10 [facility] [id number]) Cognitive Factors Limiting Selfcare Function Cognitive Ability Level of Alertness Alert Confusional State Patient Orientation Name Attention Span Ability Unable to Focus Unable to Sustain Attention Ability to Follow Commands Able to Follow One Step Commands with Increased Time Able to Follow One Step Commands with Repetition Memory Description Short Term Impaired Safety Awareness Underestimates Need for Assistance Problem Solving Ability Unable to Identify Errors Needs Assist to Identify Solutions Executive Function Ability Unable to Make Plans Unable to Organize Plans Unable to Remember Details Cognitive Comments Cognitive Assessment Comments Pt needing lots of encouragement and not wanting to to get up as stating too tired and hurting. Pt needing one step concrete commands and easily gets overwhelmed. M7 OT- IP Mobility and Balance Start: 08/13/18 11:55 Freq: Status: Active Protocol: Document 08/14/18 12:44 [facility] (Rec: 08/14/18 13:10 [facility] [id number]) OT- Bed Mobility Assessment Rolling Type of Rolling Roll to Right Supine to Sit Supine to Sit Assist Moderate Assistance 1 Person Assistance Head of Bed Elevated Scooting Scooting to Edge of Bed Minimal Assistance 1 Person Assistance OT-Transfer Assessment Sit to and From Stand Sit to and from Stand Moderate Assistance Maximum Assistance 1 Person Assistance Transfers Transfer Ability Moderate Assistance Maximum Assistance 1 Person Assistance Technique Transfer Destination Bedside Commode Transfer Technique Stand Step Pivot Devices Transfer Assistive Devices Gait Belt Comments Mobility Comments Pt needing MODA to help get from side lying to upright. Pt needing MODA/MAX A to stand form bed and BSC. Pt able to stand with FWW when up but still needing MODA to stand. Nurse able to change BSC out with recliner so pt able to be upright for lunch. OT- Balance Assessment Sitting Balance and Reactions Static Sitting Balance Ability Good Dynamic Sitting Balance Ability Fair Standing Balance and Reactions Static Standing Balance Ability Poor M8 OT- IP Objective Assessments Start: 08/13/18 11:55 Freq: Status: Active Protocol: Document 08/13/18 14:15 [facility] (Rec: 08/13/18 14:30 [facility] [id number]) OT Gross Range of Motion Upper Extremity Range of Motion ROM Impairments WFL from elbow to distal unable to assess for shoulder at this time. M9 OT- IP Assessment and Plan Start: 08/13/18 11:55 Freq: Status: Active Protocol: Document 08/14/18 12:44 [facility] (Rec: 08/14/18 13:10 [facility] [email or web address]) OT Summary Assessment and Plan Potential Rehabilitation Potential Fair Analytic Complexity at Evaluation Low Summary OT Impairments Strength Balance Functional Cognition Functional Mobility Dressing Toileting Bathing Toilet Transfers Shower Transfers Progress Towards Goals Slow Progress due to Medical Issues Slow Progress due to Activity Tolerance Slow Progress due to Cognition Assessment Summary Pt able to get up with lots of encouragement today. Pt still far from baseline and would benefit from skilled rehab. Goals Self-Feeding Goal Independent Grooming Goal Standby Assistance Dressing Goal Minimal Assistance Toileting Goal Minimal Assistance Bathing Goal Moderate Assistance Toilet Transfer Goal Standby Assistance Minimal Assistance Shower Transfer Goal Standby Assistance Patient/Caregiver Education Goal Caregiver Independent Assisting Patient OT-Other Goals Goals modified after being able to see pt for bed mobility and transfer today. Days to Meet Goals 7 Frequency of Treatment Frequency Of Treatment Once a Day Treatment Plan OT Treatment Plan ADL Training Functional Cognition Training Functional Mobility Patient/Family Education Discharge Planning Other Treatment Recommendations and Next Stand from grooming, LB Treatment Focus dressing Discharge Recommendations OT Discharge Recommendations SNF Rehab Home Equipment Needs defer to SNF
--- NOTE | 2018-08-14 13:16 | PM.PN.1 ---
Subjective Date Patient Seen: 08/14/18 Interval history: Meghna Sheldon is an 82-year-old female with a past medical history significant for vascular dementia, hypertension, hyperlipidemia, atrial septal aneurysm, atrial fibrillation, and COPD on nocturnal oxygen who presented after possible ground level fall with left flank pain. The patient is resting in bed comfortably today. She continues to be mildly confused and alert oriented to person only. Per patient's family, she is usually alert and oriented x3 (occasionally has difficulty with specific date). She denies pain. She endorses mild headache. Otherwise she has no complaints and denies cough, shortness of breath, chest pain, abdominal pain, nausea, vomiting, fever, chills, dysuria, diarrhea or constipation. She is incontinent but voiding without difficulty. She has not had a bowel movement since admission and a bowel regimen has been implemented. She is up ambulating minimally with assistance. Exam Vital Signs (past 8 hours): - 08/14/18 08:05 08/14/18 10:00 Temperature 97.4 F L Pulse Rate 70 87 Respiratory Rate 18 Blood Pressure 156/56 H 164/77 H Pulse Oximetry 92 91 Oxygen Delivery Method Room Air Oxygen Flow Rate 0 Narrative Exam Narrative: General: Frail and thin elderly female in no acute distress, well-developed, well-nourished, mild confusion on baseline dementia, patient is very sensitive and extremely anxious/agitated. HEENT: Normocephalic, atraumatic. External ears without defect. Pupils equal, round, and reactive to light. Anicteric sclerae, moist conjunctivae, and no lid lag. Dry oral mucosa. Neck: Supple with full range of motion. No lymphadenopathy or thyromegaly. Cardiovascular: Irregularly irregular with grade 2/6 systolic murmur. No rubs or gallops appreciated. Pulmonary: Clear to auscultation bilaterally without crackles, wheezes, or rhonchi. Normal respiratory effort with no use of accessory muscles. Abdomen: Soft, scaphoid, bowel sounds present, nontender, nondistended. No hepatosplenomegaly or masses appreciated. Extremities: No clubbing, cyanosis, or edema. Skin: Normal temperature, turgor, and texture; no rash, ulcers, or subcutaneous nodules appreciated. Neurological: Cranial nerves grossly intact. Psychiatric: Significantly anxious/agitated. Mild confusion on baseline dementia. Alert and oriented to person only. Objective Labs Result Diagrams: 08/13/18 10:14 08/13/18 10:14 Assessment & Plan Assessment & Plan narrative: Meghna Sheldon is an 82-year-old female with a past medical history significant for vascular dementia, hypertension, hyperlipidemia, atrial septal aneurysm, atrial fibrillation, and COPD on nocturnal oxygen who presented after possible ground level fall with left flank pain. 1. Acute Klebsiella UTI, present on admission. Active. -Patient presented with left flank pain and increased confusion from baseline. -Urinalysis grew Klebsiella resistant only to ampicillin and will continue ceftriaxone 2 g daily. 2. Acute metabolic encephalopathy on chronic vascular dementia, present on admission. Improving. -Per patient's nephew and niece in law, the patient is more confused than usual. Continues to be alert oriented to person only. -Continue Seroquel 12.5 mg daily at bedtime as needed for anxiety/agitation. Discontinued daytime Seroquel as patient is mildly drowsy. 3. Repeated falls, chronic, present on admission. Stable. -Patient more confused than baseline dementia. Possibility of fall? -Creatinine kinase was normal at 38. EKG atrial fibrillation without acute ischemic changes. -Ordered lumbar and thoracic spine x-ray which has not been performed due to patient's anxiety/agitation -Continue PT and OT evaluation and treatment. -Continue Tylenol 3 times daily scheduled for pain and hydrocodone 5-325 mg every 6 hours as needed for severe pain. 4. Aortic stenosis, chronic, present on admission. Presumed stable. -Followed by Cardiology. 5. Paroxysmal atrial fibrillation, chronic, present on admission. Stable. -Followed by Cardiology. -Continue diltiazem CD 300 mg daily and aspirin 81 mg daily 6. COPD, present on admission. Stable. -On nocturnal oxygen at baseline. -Continue supplemental oxygen as needed to maintain saturations 88-92%. 7. Atrial septal aneurysm, chronic, present on admission. Stable. -Followed by Cardiology, unlikely to be related to this hospital episode. 8. Hypertension, chronic, present on admission. Stable. -Continue diltiazem CD 300 mg daily and lisinopril 20 mg daily. 9. Hyperlipidemia, chronic, present on admission. Stable. -Treatment status unclear and there are no current lipid lowering medicines reported at home. 10. Macular degeneration, chronic, present on admission. Stable. -Low vision can certainly be related to falls. Disposition: Likely to discharge in 1-2 days depending on improvement in metabolic encephalopathy and left flank pain with treatment of UTI. Patient will need care home facility for rehabilitation and possibly assisted living facility once completed rehab. Quality VTE Deep Vein Thrombosis/Pulmonary Embolism Present on Admission: No
[2018-08-14 13:30] VITALS: BP 141/60; PULSE 70; RESP 18; TEMP 37.3; O2SAT 95
[2018-08-14] MEDS: SENNOSIDES 8.6 MG TABLET 17.2 MG PO (14:24)
[2018-08-14] MEDS: DEXTROSE 5%-0.9% NS 1,000 ML 75 ML IV ×2 (14:30)
--- NOTE | 2018-08-14 14:45 | ST.IPDYTX ---
Care Team Visit Care Team Role Provider Type Evie Kim PA-C Primary Care Provider [employer] Consultant And Designer Specialty: Medical Address: [address] [place] [address], [id number] Email: [email or web address] Emergency Provider [employer] Consultant And Designer Specialty: Emergency Medicine Address: [address] [place] [address], [id number] Email: Yesi Ftizpatrick MD Admit Provider Physician Attending Provider Specialty: Medical Address: [address] [place] [address], [phone] Email: FACULTY RESEARCH PHYSICIAN Dysphagia Treatment FACULTY RESEARCH PHYSICIAN Dysphagia Treatment Start: 08/13/18 15:27 Freq: Status: Active Protocol: Document 08/14/18 14:28 [facility] (Rec: 08/14/18 14:32 [facility] [id number]) Dysphagia Treatment Session Time Visit Start Time 11:55 Visit Stop Time 12:15 Total Visit Minutes 20 Setting Assessment Location Acute Care Visit Type Note Type Treatment Note Next Note Type Next Note Type Treatment Note Patient Information Identification Type Name ID Wristband Subjective Observations Pt was up in bedside chair self-feeding her lunch. Treatment Liquids Trialed Thin Solids Trialed Puree Regular Administration Type Straw Self-Feeding Oral Strategies Lingual Sweep Controlled Bite/Sip Size Alternate Liquids/Solids Dementia Strategies Pharyngeal Strategies Effortful Swallow Treatment Activities Pt was up in bedside chair self-feeding her lunch. Pt was in a pleasant, talkative mood. Regular texture and thin liquids were provided in pt's lunch. According to nursing, the pt self-fed all of her breakfast. Pt was observed to adequately chew and swallow her soup with broken crackers in it as well as a cookie without difficulty. Thin liquids via staw also appeared to be swallowed safely No overt s/ sx aspiration observed. No cough/choke, no wet vocal quality post swallow observed. Will d/c pt from skilled dysphagia therapy but continue to monitor and treat pt's cognition Assessment Patient Response to Treatment Excellent Rehab Potential Excellent Assessment of Improvement No dysphagia. Patient able to tolerate thin liquids and regular textures without overt s/s of aspiration. Able to tolerate medication whole in carrier, one at a time, without difficulty. Recommend continue current diet of regular textures and thin liquids. Please provide tray set up assist and distant supervision during intake due to patient's poor positioning . Please administer medication one at a time in carrier. Check patient's mouth for clearance of all PO meds after administration. FACULTY RESEARCH PHYSICIAN will follow up tomorrow for diet tolerance check and assessment of cognition, if warranted. Diet Recommendations Recommendations Continue Current Diet Liquids Order Thin Diet Order Regular Medication Recommendations Whole in Carrier One at a Time Comments Distant supervision during meals. Additional Dietary Needs Encourage to Self-Feed Reminders to Use Strategies Aspiration Precautions Recommended Precautions Upright at 90 Degrees Alternate Liquids/Solids Small Bites/Sips Effortful Swallow Check for Pocketing Treatment Plan Placement Recommendation after Discharge [facility] Facility Appropriate for Continued Therapy Yes Therapy Recommendations Cognitive assessment next visit, if warranted. Dysphagia Goals Tolerate thin liquids and regular textures without overt s/s of aspiration. Follow Up Plan Follow for cognition assessment and monitoring as indicated x1-2 times
[2018-08-14 15:00] VITALS: O2SAT 93
--- NOTE | 2018-08-14 15:22 | CM.DPC ---
DCP Cont: Faxed referral for review to [facility], Attn: Anaid. Fax confirmation scanned in. Mee Levin, Portia Transfer And Line Up Worker
[2018-08-14 16:20] VITALS: BP 153/58; PULSE 71; RESP 18; TEMP 36.6; O2SAT 93
--- NOTE | 2018-08-14 17:46 | PT.IPTN ---
Current Diagnoses Urinary tract infection, site not specified (08/12/18) Physical Therapy Treatment Note M2 PT-IP Current Condition Start: 08/13/18 11:09 Freq: NEEDED Status: Active Protocol: Document 08/13/18 10:50 [facility] (Rec: 08/13/18 11:31 RS [id number]) Physical Therapy Current Condition Current Condition Evaluation Date 08/13/18 Treatment Diagnosis impaired mobility Onset Date 08/12/18 M3 PT-IP Subjective Start: 08/13/18 11:09 Freq: NEEDED Status: Active Protocol: Document 08/14/18 16:20 [facility] (Rec: 08/14/18 17:46 [facility] [id number]) Subjective Physical Therapy Visit Type Type Treatment Note Visit Start Time 16:20 Visit Stop Time 16:36 Total Visit Minutes 16 Number of LOCOMOTIVE ENGINEER ELECTRIC Visits 1 Physical Therapy Visit Comments Patient Comments Pt up standing with alarm going off upon arrival. Therapy Pain Assessment Pain When Pain Assessed At Rest Pain Present Pain Present Denied Pain M4 PT-IP Mobility and Gait Start: 08/13/18 11:09 Freq: NEEDED Status: Active Protocol: Document 08/14/18 16:20 [facility] (Rec: 08/14/18 17:46 [facility] [id number]) PT-Transfer Assessment Sit to and From Stand Sit to and from Stand Contact Guard Assistance Equipment Transfer Assistive Device Gait Belt Front Wheeled Walker Transfers Transfer Destination Chair Transfer Ability Level of Assist Contact Guard Assistance 1 Person Assistance Comments Mobility Comments Pt wanting to get up and walk. Gait Assessment Gait Gait Assistance Required: Contact Guard Assist 1 Person Assist Distance (Feet) 50 Able to Maintain Weight Bearing Status Yes During Gait Assistive Devices Assistive Device Gait Belt Front Wheeled Walker Orthotic/Prosthetic Devices or Brace: No Gait Deviations General Gait Pattern Decreased Stride Length Decreased Feet Clearance Flexed Trunk Narrow Based Gait Factors Limiting Gait Function Factors Limiting Gait Function Decreased Activity Tolerance Decreased Strength Difficulty Following Directions Poor Balance Poor Safety Awareness Comments Gait Comments Pt ambulated in rabago CGA and IV pole management with one LOB to left self corrected. Stair Climbing Assessment Comments Stair Climbing Comments not assessed M5 PT-IP Objective Assessments Start: 08/13/18 11:09 Freq: NEEDED Status: Active Protocol: Document 08/13/18 10:50 RS (Rec: 08/13/18 11:31 RS [id number]) Gross Range of Motion Upper Extremity ROM Assessment Within Functional Limits Lower Extremity ROM Assessment Within Functional Limits Impairments Pt able to move through normal ROM while lying in sidelying, no reported change in pain levels. Strength Comments Strength Comments BLE not formally assessed but at least 2+/5 observed M6 PT-IP Treatment Start: 08/13/18 11:09 Freq: NEEDED Status: Active Protocol: Document 08/14/18 16:20 [facility] (Rec: 08/14/18 17:46 [facility] [id number]) Physical Therapy Treatment Education Education Provided Safety M7 PT-IP Assessment and Plan Start: 08/13/18 11:09 Freq: NEEDED Status: Active Protocol: Document 08/14/18 16:20 [facility] (Rec: 08/14/18 17:46 [facility] [id number]) PT Summary Assessment and Plan Potential Rehabilitation Potential Fair Status of Condition at Evaluation Evolving Summary Impairments Pain Strength Balance Cognition Bed Mobility Transfers Gait Activity Tolerance Assessment Summary Pt wanting to ambulate in rabago . Pt required CGA with assist of IV pole. Pt took seated rest break after ~25ft for ~3 minutes. Pt wanted to return to chair once back in room and required cues for chair approach keeping walker with her until she was safely in front of chair. O2 sats on RA 93%, BP 153/58. Pt did not c/o SOB or lightheadedness. Left pt in reclined chair with alarm on and all needs within reach. Goals Bed Mobility Goal Independent Transfer Goal Independent Gait Goal Independent Gait Distance 50 Days to Meet Goals 4 Frequency of Treatment Frequency Of Treatment Once a Day Treatment Plan Physical Therapy Treatment Plan Bed Mobility Training Transfer Training Gait Training Therapeutic Exercise Balance Retraining Post Op Education Discharge Planning Hot or Cold Pack Neuromuscular Re-ed Coordination Retraining Manual Therapy Other Recommendations and Next Treatment ambulation as able, bed Focus mobility and transfers. Recommendations To Nursing Amount of Assist Needed 1 Person Assist Discharge Recommendations PT Discharge Recommendations SNF Rehab
[2018-08-14 19:15] VITALS: BP 144/53; PULSE 70; RESP 16; TEMP 36.6; O2SAT 92
[2018-08-14] MEDS: DOCUSATE 100 MG CAPSULE PO (20:03)
[2018-08-15] VITALS (11 sets, daily range): BP systolic 100–159; BP diastolic 44–64; PULSE 66–101; RESP 16–20; TEMP 36.4–37.6; O2SAT 90–96
[2018-08-15] MEDS: DEXTROSE 5%-0.9% NS 1,000 ML 75 ML IV ×2 (02:10→16:44)
[2018-08-15] MEDS: HYDROCODONE/ACET 5/325 TABLET 1 TAB PO ×2 (02:33→17:37)
--- NOTE | 2018-08-15 03:40 | PC.NURSE ---
Pt awakens at approx 0200 states she needs to have BM. Pt crying out in pain when attempt to get up to BSC. Declines BSC, Bedpan used instead. Continues to stool small smears for approx 30 min. Pt unable to roll side to side for brief change and bedpan placement. Stating I'm in so much pain. Why am I being punished Pt trashing about and grabbing WET ROASTER's arm. Additional staff member assigned to be sitter. This race and sports book writer medicated with Vicodin for 7/10 back pain. Warm blanket applied to lower back. Pt now asleep and calm. Bed alarm on. Door open for safety. Sitter no longer needed and released from assignment.
[2018-08-15] MEDS: ACETAMINOPHEN 325 MG TABLET 650 MG PO ×2 (09:57→20:13)
[2018-08-15] MEDS: CEFTRIAXONE 2 GM/50 ML FROZ.PIGGY IV ×2 (09:57→10:08)
[2018-08-15] MEDS: CHLORTHALIDONE 25 MG TABLET 12.5 MG PO (09:58)
[2018-08-15] MEDS: ASPIRIN EC 81 MG TABLET PO (09:59)
[2018-08-15] MEDS: dilTIAZem CD 180 MG CAP PO ×2 (10:00→10:03)
[2018-08-15] MEDS: LISINOPRIL 20 MG TABLET PO (10:04)
[2018-08-15] MEDS: dilTIAZem CD 120 MG CAP PO (10:06)
--- NOTE | 2018-08-15 10:24 | P.PN_ITS ---
Subjective Date Patient Seen: 08/15/18 Time Patient Seen: 10:06 Interval history: Dr. West, hospitalist, asked for Orthopedic consult regarding patient's back pain. Dr. Serrano is orthopedist on-call but not available at this time. patient has history of possible fall on 08/10/2018 at home. She has complained of acute mid back pain since that time. she was brought to the hospital for evaluation and found to have UTI. She has had continued mid back pain. difficulty moving. She does have history of old T12 and L1 compression fractures. denies radicular leg symptoms. she has been getting Emporium 5/325 mg and Tylenol for pain. Exam Vital Signs (past 8 hours): - 08/15/18 03:14 08/15/18 09:00 Temperature 98.9 F 98.7 F Pulse Rate 66 73 Respiratory Rate 16 17 Blood Pressure 152/52 H 155/59 H Pulse Oximetry 90 L 95 Oxygen Delivery Method Room Air Oxygen Flow Rate 1 Narrative Exam Narrative: Patient is alert and responsive complaining of moderate pain lying in bed. back. With mild to moderate tenderness on palpation to mid to lower thoracic spine. no lumbar tenderness. legs. No calf pain or swelling. Pulses symmetrical. Good sensation to touch the lower legs. Objective Labs Result Diagrams: 08/13/18 10:14 08/13/18 10:14 Assessment & Plan Assessment & Plan narrative: Assessment: Apparent new T9 compression fracture with old T12, L1 compression fractures. Plan: I discussed exam and findings with Dr. West. Will obtain thoracic spine MRI to evaluate acuteness of her T9 fracture. patient will be started on calcitonin nasal spray once daily to see if this will help with her back pain. Dr. Serrano will do orthopedic consult later today and can reach discuss findings with one of our spine surgeons as needed. I did talk with the patient and her niece and her regarding the exam and x-ray findings. Discussed conservative treatment using calcitonin and pain management and waiting on healing. also discussed possible kyphoplasty for T9. Time Spent With Patient Time with patient: 15-24 minutes Quality VTE Deep Vein Thrombosis/Pulmonary Embolism Present on Admission: No
--- NOTE | 2018-08-15 10:30 | PT.IPTN ---
Current Diagnoses Urinary tract infection, site not specified (08/12/18) Physical Therapy Treatment Note M2 PT-IP Current Condition Start: 08/13/18 11:09 Freq: NEEDED Status: Active Protocol: Document 08/13/18 10:50 RS (Rec: 08/13/18 11:31 RS [id number]) Physical Therapy Current Condition Current Condition Evaluation Date 08/13/18 Treatment Diagnosis impaired mobility Onset Date 08/12/18 M3 PT-IP Subjective Start: 08/13/18 11:09 Freq: NEEDED Status: Active Protocol: Document 08/15/18 10:30 GGD (Rec: 08/15/18 13:54 GGD [email or web address]) Subjective Physical Therapy Visit Type Type Treatment Note Visit Start Time 10:10 Visit Stop Time 10:30 Total Visit Minutes 20 Number of BROKE HANDLER Visits 2 Physical Therapy Visit Comments Patient Comments Pt needs transfer to W/C for MRI M4 PT-IP Mobility and Gait Start: 08/13/18 11:09 Freq: NEEDED Status: Active Protocol: Document 08/15/18 10:30 GGD (Rec: 08/15/18 13:54 GGD [email or web address]) PT-Transfer Assessment Sit to and From Stand Sit to and from Stand Contact Guard Assistance Equipment Transfer Assistive Device Gait Belt Orthotic/Prosthetic Devices or Brace: No Transfers Transfer Destination Wheelchair Transfer Ability Level of Assist Contact Guard Assistance 1 Person Assistance Gait Assessment Gait Gait Assistance Required: Minimum Assistance 1 Person Assist Distance (Feet) 10 Assistive Devices Assistive Device Gait Belt Orthotic/Prosthetic Devices or Brace: No Gait Deviations General Gait Pattern Decreased Stride Length Decreased Feet Clearance Flexed Trunk Narrow Based Gait Factors Limiting Gait Function Factors Limiting Gait Function Decreased Activity Tolerance Decreased Strength Difficulty Following Directions Poor Balance Poor Safety Awareness Comments Gait Comments Pt ambulated from chair to W/C with hand hold assist. M5 PT-IP Objective Assessments Start: 08/13/18 11:09 Freq: NEEDED Status: Active Protocol: Document 08/13/18 10:50 RS (Rec: 08/13/18 11:31 RS [id number]) Gross Range of Motion Upper Extremity ROM Assessment Within Functional Limits Lower Extremity ROM Assessment Within Functional Limits Impairments Pt able to move through normal ROM while lying in sidelying, no reported change in pain levels. Strength Comments Strength Comments BLE not formally assessed but at least 2+/5 observed M6 PT-IP Treatment Start: 08/13/18 11:09 Freq: NEEDED Status: Active Protocol: Document 08/14/18 16:20 CLB (Rec: 08/14/18 17:46 CLB [id number]) Physical Therapy Treatment Education Education Provided Safety M7 PT-IP Assessment and Plan Start: 08/13/18 11:09 Freq: NEEDED Status: Active Protocol: Document 08/15/18 10:30 GGD (Rec: 08/15/18 13:54 GGD [email or web address]) PT Summary Assessment and Plan Summary Assessment Summary Pt had mild unsteadiness with initial stand. She need CGA for gait with hand hold assist , but min A for controlled sit . She is impulsive with mobility and need unable to follow cues for safety. Frequency of Treatment Frequency Of Treatment Once a Day Treatment Plan Physical Therapy Treatment Plan Bed Mobility Training Transfer Training Gait Training Therapeutic Exercise Balance Retraining Post Op Education Discharge Planning Hot or Cold Pack Neuromuscular Re-ed Coordination Retraining Manual Therapy Other Recommendations and Next Treatment ambulation as able, bed Focus mobility and transfers. Recommendations To Nursing Amount of Assist Needed 1 Person Assist Discharge Recommendations PT Discharge Recommendations SNF Rehab
[2018-08-15] MEDS: LORazepam 2 MG/ML SYRINGE 0.5 MG IV (10:36)
--- NOTE | 2018-08-15 11:48 | ST.IPDYTX ---
Care Team Visit Care Team Role Provider Type Evie Kim PA-C Primary Care Provider Advanced Resource Conservation Specialist Specialty: Medical Address: [address] [place] [address], [id number] Email: [email or web address] Francis Serrano MD Other Providers Physician Specialty: Orthopedic Surgery Address: [address] [place] [address], [id number] Email: [email or web address] Emergency Provider Advanced Resource Conservation Specialist Specialty: Emergency Medicine Address: [address] [place] [address], [id number] Email: Yesi Fitzpatrick MD Admit Provider Physician Attending Provider Specialty: Medical Address: [address] [place] [address], [phone] Email: AUTO REFINISHER Dysphagia Treatment AUTO REFINISHER Dysphagia Treatment Start: 08/13/18 15:27 Freq: Status: Active Protocol: Document 08/15/18 11:04 LNK (Rec: 08/15/18 11:36 LNK [email or web address]) Dysphagia Treatment Session Time Visit Start Time 10:45 Visit Stop Time 11:05 Total Visit Minutes 20 Setting Assessment Location Acute Care Visit Type Note Type Discharge Summary Next Note Type Next Note Type Treatment Note Patient Information Identification Type Name ID Wristband Subjective Observations Pt was up in bedside chair self-feeding her lunch. Treatment Liquids Trialed Thin Solids Trialed Regular Administration Type Straw Self-Feeding Oral Strategies Lingual Sweep Controlled Bite/Sip Size Alternate Liquids/Solids Dementia Strategies Pharyngeal Strategies Effortful Swallow Treatment Activities Pt was in bed alert. Thin liquids and breakfast on bedside tray. Nursing reported that pt has been eating well. Regular texture and thin liquids safely tolerated without overt s/sx aspiration. Pt was observed to adequately chew and swallow her soup with broken crackers in it as well as a cookie without difficulty. Thin liquids via staw also appeared to be swallowed safely No overt s/ sx aspiration observed. No cough/choke, no wet vocal quality post swallow observed. Will d/c pt from skills dysphagia therapy but continue to monitor and treat pt's cognition Assessment Patient Response to Treatment Excellent Rehab Potential Excellent Assessment of Improvement No dysphagia. Patient able to tolerate thin liquids and regular textures without overt s/s of aspiration. Able to tolerate medication whole in carrier, one at a time, without difficulty. Recommend continue current diet of regular textures and thin liquids. Diet Recommendations Recommendations Continue Current Diet Liquids Order Thin Diet Order Regular Medication Recommendations Whole in Carrier One at a Time Comments Distant supervision during meals. Additional Dietary Needs Encourage to Self-Feed Reminders to Use Strategies Aspiration Precautions Recommended Precautions Upright at 90 Degrees Alternate Liquids/Solids Small Bites/Sips Effortful Swallow Check for Pocketing Treatment Plan Placement Recommendation after Discharge Senior Living Facility Appropriate for Continued Therapy No: Discharge from ST services at this time Therapy Recommendations Discharge from 1:1 ST
[2018-08-15] MEDS: CALCITONIN,SALMON, NASAL SPRAY 1 SPRAYS NASAL (12:28)
--- NOTE | 2018-08-15 12:58 | OT.IP.TRT ---
Current Diagnoses Urinary tract infection, site not specified (08/12/18) Occupational Therapy Treatment Note M2 OT-IP Current Condition Start: 08/13/18 11:55 Freq: Status: Active Protocol: Document 08/13/18 14:15 [facility] (Rec: 08/13/18 14:30 [facility] [email or web address]) Occupational Therapy Current Condition Current Condition Evaluation Date 08/13/18 Treatment Diagnosis GLF, UTI, metabooic enceph Diagnosis Onset Date 08/12/18 Weight Bearing Status Weight Bearing Status Weight Bear as Tolerated M3 OT- IP Subjective and Pain Start: 08/13/18 11:55 Freq: Status: Active Protocol: Document 08/15/18 12:40 [facility] (Rec: 08/15/18 12:58 [facility] [email or web address]) OT- Subjective Occupational Therapy Visit Type Type Treatment Note Visit Start Time 11:45 Visit Stop Time 12:25 Total Visit Minutes 40 Occupational Therapy Visit Comments Patient Comments Spoke to pt's family to get prior level of function and home set-up. Pt stating needing to use the bathroom. OT Pain Assessment Pain When Pain Assessed At Rest Pain Present Pain Present Denied Pain M4 OT- IP ADL's Start: 08/13/18 11:55 Freq: Status: Active Protocol: Document 08/15/18 12:40 [facility] (Rec: 08/15/18 12:58 [facility] [email or web address]) OT ADL-Dressing General Eval Lower Body Dressing Ability Maximum Assistance Areas Needing Assistance Underpants/Brief Socks Comments OT Dressing Comments Pt unable to bend to get brief over her feet and needing assist, pt able to assist a little to help pull up brief over her hips. OT ADL-Toileting General Evaluation Toileting Ability Maximum Assistance Areas Needing Assistance Manage Clothing Perform Perineal Hygiene Comments OT Toileting Comments Pt dependent for all hygiene and brief management needs. One person to stand with pt to FWW and another to help with hygiene needs. M5 OT- IP IADL's Start: 08/13/18 11:55 Freq: Status: Active Protocol: Document 08/13/18 14:15 [facility] (Rec: 08/13/18 14:30 [facility] [email or web address]) OT-Instrumental Activities of Daily Living Medication Management Medication Management Comments Pt states takes her own medications but unable to recall which ones. Money Management Money Management Comments Pt states the bank pays her bills but unable to elaborate on how. Meal Preparation Meal Preparation Comments Pt states recent has not been able to eat or have a decent meal. 08/15 Family states they assists with bills and medications. Pt memory has declines, needs concrete cues, and not been thorough with hygiene needs. M6 OT- IP Functional Cognition Start: 08/13/18 11:55 Freq: Status: Active Protocol: Document 08/15/18 12:40 [facility] (Rec: 08/15/18 12:58 [facility] [email or web address]) Cognitive Factors Limiting Selfcare Function Cognitive Ability Level of Alertness Alert Confusional State Patient Orientation Name Attention Span Ability Capable of Focused Attention Unable to Sustain Attention Ability to Follow Commands Able to Follow One Step Commands with Increased Time Able to Follow One Step Commands with Repetition Memory Description Short Term Impaired Safety Awareness Underestimates Need for Assistance Problem Solving Ability Unable to Identify Errors Needs Assist to Identify Solutions Executive Function Ability Unable to Make Plans Unable to Organize Plans Unable to Remember Details Cognitive Comments Cognitive Assessment Comments Pt not aware where she is at. Pt able to states needing to use the bathroom and wanting warm blankets. M7 OT- IP Mobility and Balance Start: 08/13/18 11:55 Freq: Status: Active Protocol: Document 08/15/18 12:40 [facility] (Rec: 08/15/18 12:58 [facility] [email or web address]) OT- Bed Mobility Assessment Rolling Type of Rolling Roll to Right Supine to Sit Supine to Sit Assist Maximum Assistance 1 Person Assistance OT-Transfer Assessment Sit to and From Stand Sit to and from Stand Minimal Assistance Moderate Assistance 1 Person Assistance Transfers Transfer Ability Moderate Assistance 1 Person Assistance Technique Transfer Destination Bedside Commode Chair Transfer Technique Stand Step Pivot Devices Transfer Assistive Devices Gait Belt Front Wheeled Walker Comments Mobility Comments Pt still needing MAX A for bed mobility due to back pain. HAMILTON to MODA to stand, once up to FWW assist to guide FWW and for safety awareness. OT- Balance Assessment Sitting Balance and Reactions Static Sitting Balance Ability Normal Dynamic Sitting Balance Ability Fair Standing Balance and Reactions Static Standing Balance Ability Fair M8 OT- IP Objective Assessments Start: 08/13/18 11:55 Freq: Status: Active Protocol: Document 08/13/18 14:15 [facility] (Rec: 08/13/18 14:30 [facility] [email or web address]) OT Gross Range of Motion Upper Extremity Range of Motion ROM Impairments WFL from elbow to distal unable to assess for shoulder at this time. M9 OT- IP Assessment and Plan Start: 08/13/18 11:55 Freq: Status: Active Protocol: Document 08/15/18 12:40 [facility] (Rec: 08/15/18 12:58 [facility] [email or web address]) OT Summary Assessment and Plan Potential Rehabilitation Potential Fair Analytic Complexity at Evaluation Low Summary OT Impairments Strength Balance Functional Cognition Functional Mobility Dressing Toileting Bathing Toilet Transfers Shower Transfers Progress Towards Goals Slow Progress due to Medical Issues Slow Progress due to Activity Tolerance Slow Progress due to Cognition Assessment Summary Pt doing better with mobility needs and able to identify needs better as well. Pt will benefit from skilled rehab initially and then afterwards will need to go have either assist or facility with higher care. Goals Self-Feeding Goal Independent Grooming Goal Standby Assistance Dressing Goal Minimal Assistance Toileting Goal Minimal Assistance Bathing Goal Moderate Assistance Toilet Transfer Goal Standby Assistance Shower Transfer Goal Standby Assistance Patient/Caregiver Education Goal Caregiver Independent Assisting Patient Days to Meet Goals 6 Frequency of Treatment Frequency Of Treatment Once a Day Treatment Plan OT Treatment Plan ADL Training Functional Cognition Training Functional Mobility Patient/Family Education Discharge Planning Other Treatment Recommendations and Next Stand from grooming, LB Treatment Focus dressing Discharge Recommendations OT Discharge Recommendations SNF Rehab Home Equipment Needs defer to SNF
--- NOTE | 2018-08-15 13:15 | PM.PN.1 ---
Subjective Date Patient Seen: 08/15/18 Interval history: Meghna Sheldon is an 82-year-old female with a past medical history significant for vascular dementia, hypertension, hyperlipidemia, atrial septal aneurysm, atrial fibrillation, and COPD on nocturnal oxygen who presented after possible ground level fall with left flank pain. The patient is resting in bed comfortably today. She is no longer confused and is at her baseline mentation per family. She denies pain currently and is well controlled with Tylenol and low-dose narcotic. She has no complaints and denies cough, shortness of breath, chest pain, abdominal pain, nausea, vomiting, fever, chills, dysuria, diarrhea or constipation. She is voiding and eliminating without difficulty. She is up ambulating minimally with assistance. Exam Vital Signs (past 8 hours): - 08/15/18 09:00 08/15/18 10:04 08/15/18 10:29 Temperature 98.7 F Pulse Rate 73 73 Respiratory Rate 17 Blood Pressure 155/59 H 155/59 H Pulse Oximetry 95 96 Oxygen Delivery Method Nasal Cannula Oxygen Flow Rate 1 Narrative Exam Narrative: General: Frail and thin elderly female in no acute distress, well-developed, well-nourished, patient is very sensitive and anxious but appropriately interactive. HEENT: Normocephalic, atraumatic. External ears without defect. Pupils equal, round, and reactive to light. Anicteric sclerae, moist conjunctivae, and no lid lag. Dry oral mucosa. Temporal wasting. Neck: Supple with full range of motion. No lymphadenopathy or thyromegaly. Cardiovascular: Irregularly irregular with grade 2/6 systolic murmur. No rubs or gallops appreciated. Pulmonary: Clear to auscultation bilaterally without crackles, wheezes, or rhonchi. Normal respiratory effort with no use of accessory muscles. Abdomen: Soft, scaphoid, bowel sounds present, nontender, nondistended. No hepatosplenomegaly or masses appreciated. Extremities: No clubbing, cyanosis, or edema. Skin: Normal temperature, turgor, and texture; no rash, ulcers, or subcutaneous nodules appreciated. Neurological: Cranial nerves grossly intact. Psychiatric: Anxious mood and normal affect. Confusion resolved. Patient appears to be at baseline mentation with mild to moderate dementia. Alert and oriented to person only. Objective Labs Result Diagrams: 08/13/18 10:14 08/13/18 10:14 Assessment & Plan Assessment & Plan narrative: Meghan Sheldon is an 82-year-old female with a past medical history significant for vascular dementia, hypertension, hyperlipidemia, atrial septal aneurysm, atrial fibrillation, and COPD on nocturnal oxygen who presented after possible ground level fall with left flank pain. 1. Acute Klebsiella UTI, present on admission. Active. -Patient presented with left flank pain and increased confusion from baseline. -Urinalysis grew Klebsiella resistant only to ampicillin and will continue ceftriaxone 2 g daily. 2. Acute metabolic encephalopathy on chronic vascular dementia without behavioral disturbance, present on admission. Resolved. -Per patient's nephew and niece in law, the patient is more confused than usual. Continues to be alert oriented to person only. -Continue Seroquel 12.5 mg daily at bedtime as needed for anxiety/agitation. Discontinued daytime Seroquel as patient is mildly drowsy. 3. Acute on chronic back pain due to compression fractures, secondary to trauma from ground level fall and osteoporosis, present on admission. Stable. -Patient recently endured a ground level fall. -Creatinine kinase was normal at 38. EKG atrial fibrillation without acute ischemic changes. -Thoracic and lumbar spine x-rays demonstrated T9, T12 and L1. MRI was pursued and patient was unable to lie flat therefore it was canceled. -Continue PT and OT evaluation and treatment. -Continue Tylenol 3 times daily scheduled for pain and hydrocodone 5-325 mg every 6 hours as needed for severe pain. -Consulted Orthopedic surgery for further recommendations regarding mobility and back pain. We appreciate their time and care of the patient. 4. Aortic stenosis, chronic, present on admission. Presumed stable. -Followed by Cardiology. 5. Paroxysmal atrial fibrillation, chronic, present on admission. Stable. -Followed by Cardiology. -Continue diltiazem CD 300 mg daily and aspirin 81 mg daily 6. COPD with chronic respiratory failure, oxygen dependent, present on admission. Stable. -On nocturnal oxygen at baseline. -Continue supplemental oxygen as needed to maintain saturations 88-92%. 7. Atrial septal aneurysm, chronic, present on admission. Stable. -Followed by Cardiology, unlikely to be related to this hospital episode. 8. Hypertension, chronic, present on admission. Stable. -Continue diltiazem CD 300 mg daily and lisinopril 20 mg daily. 9. Hyperlipidemia, chronic, present on admission. Stable. -Treatment status unclear and there are no current lipid lowering medicines reported at home. 10. Macular degeneration, chronic, present on admission. Stable. -Low vision can certainly be related to falls. 11. Chronic protein calorie malnutrition in the setting of chronic illness, present on admission. Stable. -BMI 19. -Physical evidence of muscle atrophy and subcutaneous fat loss. -Ordered dietitian consultation. Disposition: Likely to discharge tomorrow to long-term facility for rehabilitation and possibly assisted living facility once completed rehab. Quality VTE Deep Vein Thrombosis/Pulmonary Embolism Present on Admission: No
--- NOTE | 2018-08-15 16:54 | CM.DPC ---
DCP/continued: Received call from Anaid from [facility]. She reports that they are unable to accept this patient for SNF. However, Anaid did forward referral to [facility] whom are also contracted with patient's insurance. Spoke with Dr. West and she reports d/c anticipated tomorrow. Family requesting DIRECTOR OF [employer]POR[employer] call Lamar at [facility] today to determine if patient could just go to [facility] under her long-term plan. Lamar spoke with them indicating that patient will need to first go to SNF under her primary payor in order for long-term plan to kick in. Family made aware that [facility] cannot accommodate. Family in agreement for [facility] to evaluate. [employer] faxed updated clinical to attn: Emerita and requested if there was any concern to please come evaluate in person. P: Pending. Hopeful patient will be accepted at SNF tomorrow. [facility] currently evaluating. PASRR done. NEELAM Styles
--- NOTE | 2018-08-15 20:11 | P.CONS_ITS ---
History of Present Illness Date Patient Seen: 08/15/18 Time Patient Seen: 20:04 Chief complaint: Back pain Reason for consult: Back pain with compression fractures Requesting provider: Yesi Fitzpatrick Narrative: 82-year-old female with questionable history of a ground level fall several days ago. Patient with history of dementia and somewhat poor historian. X-rays obtained several days ago demonstrated chronic and apparently old compression fractures at L1 and T12 and probable new mild compression fracture at T9, and consultation requested today. [facility] Medical History Vascular dementia (Chronic) Essential hypertension (Chronic 07/05/16) Hyperlipidemia (Chronic) Stenosis of aorta (Chronic 12/28/10) Atrial septal aneurysm (Chronic 07/06/15) Atrial fibrillation with RVR (Chronic) Current smoker (Chronic) Chronic obstructive pulmonary disease (Chronic) Aortic stenosis (Acute) Atrial fibrillation (Acute) Atrial septal aneurysm (Acute) COPD (chronic obstructive pulmonary disease) (Acute) Essential hypertension (Acute) Hyperlipidemia (Acute) Macular degeneration (Acute) Memory deficit (Acute) Smoker (Acute) Abdominal bruit (Inactive) Aortic valve disorder (Inactive) Carotid bruit (Inactive) Heart murmur (Inactive) History of chicken pox (Inactive) History of measles (Inactive) History of mumps (Inactive) Leukoplakia (Inactive) Sebaceous cyst of labia (Inactive) Seborrheic keratosis (Inactive) Surgical History History of sinus surgery (Acute) History of sinus surgery (Inactive) Family History (Updated 08/12/18 @ 17:40 by Yesi Fitzpatrick MD) Brother Diabetes mellitus Heart disease Father MVA (motor vehicle accident) Mother MVA (motor vehicle accident) Sister No problems noted. Social History household members: none Smoking Status: Former smoker Tobacco: How many years used: 60 second hand exposure: No alcohol intake: never substance use type: does not use caffeine: No Family History Brother Diabetes mellitus Heart disease Father MVA (motor vehicle accident) Mother MVA (motor vehicle accident) Sister No problems noted. Social History household members: none Smoking Status: Former smoker Tobacco: How many years used: 60 second hand exposure: No alcohol intake: never substance use type: does not use caffeine: No Meds Home Medications Medication Instructions Recorded Confirmed Type aspirin 81 mg PO DAILY #0 10/10/16 08/12/18 History diltiazem CD 300 mg 300 mg PO DAILY #90 cap 07/05/18 08/12/18 Rx capsule,extended release 24 hr chlorthalidone 12.5 mg PO DAILY 08/12/18 08/12/18 History lisinopril 20 mg PO DAILY 08/12/18 08/12/18 History Allergies Allergy/AdvReac Type Severity Reaction Status Date / Time diazepam [DIAZEPAM] AdvReac Severe loses Verified 08/12/18 10:05 balance easily azithromycin [AZITHROMYCIN] AdvReac Intermediate Fatigue, Verified 08/12/18 10:05 felt run down Review of Systems Review of Systems All systems reviewed & are unremarkable except as noted in HPI and below Exam Vital Signs (past 8 hours): - 08/15/18 13:00 08/15/18 15:37 08/15/18 16:34 Temperature 97.8 F 99.7 F H Pulse Rate 101 H 73 Respiratory Rate 16 20 Blood Pressure 100/44 L 128/53 L Pulse Oximetry 92 95 92 08/15/18 19:02 Temperature 99.4 F Pulse Rate 73 Respiratory Rate 20 Blood Pressure 141/50 H Pulse Oximetry 95 Oxygen Delivery Method Room Air Oxygen Flow Rate 2 Narrative Exam Narrative: Patient is slightly confused and somewhat difficult historian. Vital signs are stable and the patient is afebrile. HEENT is atraumatic and normocephalic, lungs are clear to auscultation, heart is regular rate rhythm, abdomen is benign, extremities grossly neurovascularly intact moderate tenderness in the mid thoracic and thoracolumbar spine with a significant kyphotic deformity. Objective Labs Result Diagrams: 08/13/18 10:14 08/13/18 10:14 Assessment & Plan Assessment & Plan narrative: 82-year-old female with back pain consistent with recent T9 compression fracture. Patient also has chronic T12 and L1 compression fractures. an MRI scan or CT scan are indicated to assess the chronicity of the fractures and for comparison purposes, however the CT scan is out of commission at this time, and the patient is unable to tolerate an MRI. In either case it does not appear the patient is a surgical candidate for kyphoplasty, and there does not appear to be any indication for external bracing. patient should be treated symptomatically but if there are any other changes in symptoms we can consult 1 of our spine surgeons.
[2018-08-16] VITALS (11 sets, daily range): BP systolic 119–172; BP diastolic 60–80; PULSE 65–81; RESP 16–20; TEMP 36.4–37.6; O2SAT 85–93
[2018-08-16] MEDS: HYDROCODONE/ACET 5/325 TABLET 1 TAB PO ×4 (00:31→19:11)
[2018-08-16] MEDS: DEXTROSE 5%-0.9% NS 1,000 ML 75 ML IV (05:09)
[2018-08-16] MEDS: FUROSEMIDE 20 MG/2 ML VIAL 10 MG IV (08:17)
[2018-08-16] MEDS: ALBUTEROL/IPRATROPIUM 3 ML AMPUL INH (08:18)
[2018-08-16] MEDS: CEFTRIAXONE 2 GM/50 ML FROZ.PIGGY IV (10:05)
[2018-08-16] MEDS: ACETAMINOPHEN 325 MG TABLET 650 MG PO ×3 (10:15→23:40)
[2018-08-16] MEDS: ASPIRIN EC 81 MG TABLET PO (10:15)
[2018-08-16] MEDS: CHLORTHALIDONE 25 MG TABLET 12.5 MG PO (10:16)
[2018-08-16] MEDS: CALCITONIN,SALMON, NASAL SPRAY 1 SPRAYS NASAL (10:16)
[2018-08-16] MEDS: dilTIAZem CD 180 MG CAP PO (10:17)
[2018-08-16] MEDS: dilTIAZem CD 120 MG CAP PO (10:17)
[2018-08-16] MEDS: LISINOPRIL 20 MG TABLET PO (10:17)
--- NOTE | 2018-08-16 11:50 | OT.IP.TRT ---
Current Diagnoses Urinary tract infection, site not specified (08/12/18) Occupational Therapy Treatment Note M2 OT-IP Current Condition Start: 08/13/18 11:55 Freq: Status: Active Protocol: Document 08/13/18 14:15 CCC (Rec: 08/13/18 14:30 [facility] [id number]) Occupational Therapy Current Condition Current Condition Evaluation Date 08/13/18 Treatment Diagnosis GLF, UTI, metabooic enceph Diagnosis Onset Date 08/12/18 Weight Bearing Status Weight Bearing Status Weight Bear as Tolerated M3 OT- IP Subjective and Pain Start: 08/13/18 11:55 Freq: Status: Active Protocol: Document 08/16/18 11:50 PJM (Rec: 08/16/18 12:38 PJM [id number]) OT- Subjective Occupational Therapy Visit Type Type Patient Refusal Visit Start Time 11:50 Notes Pt adamantly declining to get OOB for lunch or grooming tasks stating: It hurts too much. I can't do that now. Will attempt again as schedule permits. M
--- NOTE | 2018-08-16 14:25 | PT.IPTN ---
Current Diagnoses Urinary tract infection, site not specified (08/12/18) Physical Therapy Treatment Note M2 PT-IP Current Condition Start: 08/13/18 11:09 Freq: NEEDED Status: Active Protocol: Document 08/13/18 10:50 RS (Rec: 08/13/18 11:31 RS [id number]) Physical Therapy Current Condition Current Condition Evaluation Date 08/13/18 Treatment Diagnosis impaired mobility Onset Date 08/12/18 M3 PT-IP Subjective Start: 08/13/18 11:09 Freq: NEEDED Status: Active Protocol: Document 08/16/18 14:24 SA (Rec: 08/16/18 14:25 SA [email or web address]) Subjective Physical Therapy Visit Type Type Patient Refusal Notes Pt with family present, back pain still not under control. CP placed on mid back for pain control. M4 PT-IP Mobility and Gait Start: 08/13/18 11:09 Freq: NEEDED Status: Active Protocol: Document 08/15/18 10:30 GGD (Rec: 08/15/18 13:54 GGD [email or web address]) PT-Transfer Assessment Sit to and From Stand Sit to and from Stand Contact Guard Assistance Equipment Transfer Assistive Device Gait Belt Orthotic/Prosthetic Devices or Brace: No Transfers Transfer Destination Wheelchair Transfer Ability Level of Assist Contact Guard Assistance 1 Person Assistance Gait Assessment Gait Gait Assistance Required: Minimum Assistance 1 Person Assist Distance (Feet) 10 Assistive Devices Assistive Device Gait Belt Orthotic/Prosthetic Devices or Brace: No Gait Deviations General Gait Pattern Decreased Stride Length Decreased Feet Clearance Flexed Trunk Narrow Based Gait Factors Limiting Gait Function Factors Limiting Gait Function Decreased Activity Tolerance Decreased Strength Difficulty Following Directions Poor Balance Poor Safety Awareness Comments Gait Comments Pt ambulated from chair to W/C with hand hold assist. M5 PT-IP Objective Assessments Start: 08/13/18 11:09 Freq: NEEDED Status: Active Protocol: Document 08/13/18 10:50 RS (Rec: 08/13/18 11:31 RS [id number]) Gross Range of Motion Upper Extremity ROM Assessment Within Functional Limits Lower Extremity ROM Assessment Within Functional Limits Impairments Pt able to move through normal ROM while lying in sidelying, no reported change in pain levels. Strength Comments Strength Comments BLE not formally assessed but at least 2+/5 observed M6 PT-IP Treatment Start: 08/13/18 11:09 Freq: NEEDED Status: Active Protocol: Document 08/14/18 16:20 CLB (Rec: 08/14/18 17:46 CLB [id number]) Physical Therapy Treatment Education Education Provided Safety M7 PT-IP Assessment and Plan Start: 08/13/18 11:09 Freq: NEEDED Status: Active Protocol: Document 08/15/18 10:30 GGD (Rec: 08/15/18 13:54 GGD [email or web address]) PT Summary Assessment and Plan Summary Assessment Summary Pt had mild unsteadiness with initial stand. She need CGA for gait with hand hold assist , but min A for controlled sit . She is impulsive with mobility and need unable to follow cues for safety. Frequency of Treatment Frequency Of Treatment Once a Day Treatment Plan Physical Therapy Treatment Plan Bed Mobility Training Transfer Training Gait Training Therapeutic Exercise Balance Retraining Post Op Education Discharge Planning Hot or Cold Pack Neuromuscular Re-ed Coordination Retraining Manual Therapy Other Recommendations and Next Treatment ambulation as able, bed Focus mobility and transfers. Recommendations To Nursing Amount of Assist Needed 1 Person Assist Discharge Recommendations PT Discharge Recommendations SNF Rehab
[2018-08-16 14:50] LABS: Clostridium Difficile Tox PCR Negative for C. diff
--- NOTE | 2018-08-16 15:22 | PM.PN.1 ---
Subjective Date Patient Seen: 08/16/18 Interval history: Meghna Sheldon is an 82-year-old female with a past medical history significant for vascular dementia, hypertension, hyperlipidemia, atrial septal aneurysm, atrial fibrillation, and COPD on nocturnal oxygen who presented after possible ground level fall with left flank pain. Interval history: Patient had an episode early this morning of back pain that has since resolved with Tylenol and low-dose narcotic. She was also sounded wet on exam, therefore, IV fluids have been discontinued and she was given lasix 10 mg IV x 1. She has chronic respiratory failure on oxygen and reminded staff that oxygen saturations need to be maintained between 88-92%. The patient is resting in bed comfortably today. She denies pain currently. She does endorses diarrhea. A bowel regimen was implemented several days ago and she had a large bowel movement yesterday evening and has now had several episodes of watery diarrhea since. Bowel regimen has been held. C difficile was checked and negative. She has no complaints and denies cough, shortness of breath, chest pain, abdominal pain, nausea, vomiting, fever, chills, dysuria, or constipation. She is voiding and eliminating without difficulty. She is up ambulating minimally with assistance. Exam Vital Signs (past 8 hours): - 08/16/18 07:30 08/16/18 08:10 08/16/18 08:18 Temperature 97.5 F L Pulse Rate 81 74 Respiratory Rate 16 19 Blood Pressure 164/80 H Pulse Oximetry 85 L 92 93 08/16/18 11:10 08/16/18 11:28 Temperature 97.7 F Pulse Rate 65 Respiratory Rate 18 Blood Pressure 162/72 H Pulse Oximetry 90 L 92 Oxygen Delivery Method Nasal Cannula Oxygen Flow Rate 2 Narrative Exam Narrative: General: Frail and thin elderly female in no acute distress, well-developed, well-nourished, patient is very sensitive and anxious but appropriately interactive. HEENT: Normocephalic, atraumatic. External ears without defect. Pupils equal, round, and reactive to light. Anicteric sclerae, moist conjunctivae, and no lid lag. Dry oral mucosa. Temporal wasting. Neck: Supple with full range of motion. No lymphadenopathy or thyromegaly. Cardiovascular: Irregularly irregular with grade 2/6 systolic murmur. No rubs or gallops appreciated. Pulmonary: Clear to auscultation bilaterally with scattered rhonchi. No wheeze or crackles. Normal respiratory effort with no use of accessory muscles. Abdomen: Soft, scaphoid, bowel sounds present, nontender, nondistended. No hepatosplenomegaly or masses appreciated. Extremities: No clubbing, cyanosis, or edema. Pinpoint tenderness over mid thoracic area likely T9 compression fracture. Skin: Normal temperature, turgor, and texture; no rash, ulcers, or subcutaneous nodules appreciated. Neurological: Cranial nerves grossly intact. Psychiatric: Anxious mood and normal affect. Confusion resolved. Patient appears to be at baseline mentation with mild to moderate dementia. Alert and oriented to person only. Objective Labs Result Diagrams: 08/13/18 10:14 08/13/18 10:14 Labs: Laboratory Results - last 24 hr 08/16/18 10:58 C. difficile Tox (PCR) Negative for c. diff Assessment & Plan Assessment & Plan narrative: Meghna Sheldon is an 82-year-old female with a past medical history significant for vascular dementia, hypertension, hyperlipidemia, atrial septal aneurysm, atrial fibrillation, and COPD on nocturnal oxygen who presented after possible ground level fall with left flank pain. 1. Acute Klebsiella UTI, present on admission. Active. -Patient presented with left flank pain and increased confusion from baseline. -Urinalysis grew Klebsiella resistant only to ampicillin and will continue ceftriaxone 2 g daily for 5 days total. 2. Acute metabolic encephalopathy on chronic vascular dementia without behavioral disturbance, present on admission. Resolved. -Per patient's nephew and niece in law, the patient was initially more confused than usual. Confusion has now resolved. Per family her mentation is back to baseline and she continues to be alert and oriented to person only. -Continue Seroquel 12.5 mg daily at bedtime as needed for anxiety/agitation. Discontinued daytime Seroquel as patient is mildly drowsy. 3. Acute on chronic back pain due to compression fractures, secondary to trauma from ground level fall and osteoporosis, present on admission. Stable. -Patient recently endured a ground level fall. -Creatinine kinase was normal at 38. EKG atrial fibrillation without acute ischemic changes. -Thoracic and lumbar spine x-rays demonstrated T9, T12 and L1. MRI was pursued and patient was unable to lie flat, therefore, it was canceled. -Continue PT and OT evaluation and treatment. -Continue Tylenol 650 mg 3 times daily scheduled for pain, methocarbamol 500 mg 4 times daily as needed for muscle spasm and hydrocodone 5-325 mg every 6 hours as needed for severe pain. -Consulted Orthopedic surgery and we appreciate their time, care of the patient, and recommendations. 4. Aortic stenosis, chronic, present on admission. Presumed stable. -Followed by Cardiology. 5. Paroxysmal atrial fibrillation, chronic, present on admission. Stable. -Followed by Cardiology. -Continue diltiazem CD 300 mg daily and aspirin 81 mg daily 6. COPD with chronic respiratory failure, oxygen dependent, present on admission. Stable. -Patient is oxygen dependent and it is unclear her exact oxygen requirements at home. Continue supplemental oxygen as needed to maintain saturations 88-92%. 7. Atrial septal aneurysm, chronic, present on admission. Stable. -Followed by Cardiology. 8. Hypertension, chronic, present on admission. Stable. -Continue diltiazem CD 300 mg daily and lisinopril 20 mg daily. 9. Hyperlipidemia, chronic, present on admission. Stable. -Treatment status unclear and there are no current lipid lowering medicines reported at home. 10. Macular degeneration, chronic, present on admission. Stable. -Low vision can certainly be related to falls. 11. Chronic protein calorie malnutrition in the setting of chronic illness, present on admission. Stable. -BMI 19. -Physical evidence of muscle atrophy and subcutaneous fat loss. -Dietitian was consulted and we appreciate their recs. Disposition: [facility] which will [facility] be [facility]. Patient will likely need assisted living facility long-term for increased caregiving once she has completed rehab. Quality VTE Deep Vein Thrombosis/Pulmonary Embolism Present on Admission: No
[2018-08-16 15:45] LABS: Add Manual Diff / Slide Review NO; Basophils Absolute Auto 100 /uL (0-100); Basophils Percent Auto 0.5 % (0-2); Eosinophils Absolute Auto 200 /uL (0-450); Eosinophils Percent Auto 1.7 % (2-4); Hematocrit 37.1 % (36-46); Hemoglobin 12.2 g/dL (12.0-16.0); Lymphocytes Absolute Auto 1200 /uL (1100-4500); Lymphocytes Percent Auto 11.4 % (25-40); Mean Corpuscular HGB Conc 32.8 % (30-36); Mean Corpuscular Hemoglobin 28.1 PG (26-34); Mean Corpuscular Volume 85.4 fL (80-100); Monocytes Absolute Auto 600 /uL (0-900); Monocytes Percent Auto 5.4 % (3-14); Neutrophils Absolute Auto 8500 /uL (1500-7000); Platelet Count 314 X10^3/uL (150-400); Red Blood Cell Count 4.34 X10^6/uL (4.0-5.2); Red Cell Distribution Width 16.7 % (11.6-14.8); White Blood Cell Count 10.5 X10^3/uL (4.5-11.0)
[2018-08-16 16:02] LABS: Alanine Aminotransferase 30 IU/L (9-52); Albumin Globulin Ratio 1.3 (1.0-2.8); Alkaline Phosphatase 77 U/L (38-126); Aspartate Aminotransferase 28 IU/L (14-36); Bilirubin Total 0.3 mg/dL (0.2-1.3); Blood Urea Nitrogen 13 mg/dL (7-17); Calcium 7.8 mg/dL (8.4-10.2); Carbon Dioxide 30 mmol/L (22-32); Chloride 92 mmol/L (98-107); Estimated Glomerular Filt Rate > 60.0 mL/min (>60); Globulin 2.4 g/dL (1.7-4.1); Glucose 124 mg/dL (80-110); HEMOLYSIS < 15 (0-50); Potassium 3.3 mmol/L (3.4-5.1); Sodium 130 mmol/L (137-145); Total Protein 5.4 g/dL (6.3-8.2)
--- NOTE | 2018-08-16 16:33 | CM.DPNOTE ---
RICHARD completed bedside assessment today. Pt has been accepted pending auth through [facility] which Emerita hussein/ JERARDO is working on today. Family updated and remain agreeable to this plan. This [employer] following closely Monday08.17.18, possible DC pending [facility] auth. NEELAM Maldonado
[2018-08-16 18:52] LABS: Magnesium 1.4 mg/dL (1.6-2.3)
[2018-08-16] MEDS: POTASSIUM CHLORIDE 40 MEQ in SODIUM CHLORIDE 0.9% 500 ML 130 ML IV (18:58)
[2018-08-16] MEDS: MAGNESIUM SULFATE 2 GM/50 ML PIGGYBACK IV (21:02)
[2018-08-16] MEDS: METHOCARBAMOL 500 MG TABLET PO (23:36)
[2018-08-17] VITALS: BP 179/69; PULSE 71; RESP 20; TEMP 37.2; O2SAT 92
[2018-08-17 00:29] VITALS: O2SAT 91
[2018-08-17] MEDS: HYDROCODONE/ACET 5/325 TABLET 1 TAB PO ×3 (01:13→14:10)
[2018-08-17] MEDS: QUETIAPINE 25 MG TABLET 12.5 MG PO (01:13)
--- NOTE | 2018-08-17 05:26 | PC.NURSE ---
Pt finally able to sleep p 0200. Pt was combative to floor staff and lab at 0500 refusing all care, VS, repositioning, medications and lab draw.
[2018-08-17] MEDS: METHOCARBAMOL 500 MG TABLET PO (06:34)
[2018-08-17 07:18] VITALS: BP 146/48; PULSE 57; RESP 18; TEMP 36.4; O2SAT 91
[2018-08-17 07:45] LABS: Blood Urea Nitrogen 16 mg/dL (7-17); Calcium 8.1 mg/dL (8.4-10.2); Carbon Dioxide 31 mmol/L (22-32); Chloride 94 mmol/L (98-107); Estimated Glomerular Filt Rate > 60.0 mL/min (>60); Glucose 85 mg/dL (80-110); HEMOLYSIS < 15 (0-50); Potassium 3.7 mmol/L (3.4-5.1); Sodium 130 mmol/L (137-145)
[2018-08-17 07:55] LABS: Magnesium 1.9 mg/dL (1.6-2.3)
[2018-08-17 08:10] VITALS: O2SAT 95
--- NOTE | 2018-08-17 08:30 | PM.DS.1 ---
History of Present Illness Date Patient Seen: 08/12/18 Chief complaint: Back pain Narrative: Written by Dr. Fitzpatrick: This is an 82-year-old female with a ground level fall early this morning. She has vascular dementia and so her memory of the events this morning is variable. She says different things to different people. She told her nephew's that she did not fall but she told the staff in the emergency department that she did fall. She pressed her Life Alert button at 9:00 a.m.. When relatives arrived she was sitting in a chair. If she did fall it appears to have been in the middle the night at some point, apparently getting herself into the chair on her own. She was experiencing left-sided flank pain radiating to the mid thoracic spine. She is not tender and does not have any pain when I see her. She will be observed overnight to clarify the cause of this pain as it was quite disabling, preventing her from going home, and to evaluate with PT and OT as to what can be done for her repeated falls. She is very frail appearing, looks malnourished and cachectic. She apparently ?fell out of bed? 2 days ago. She does not drink alcohol or smoke currently. Her workup including chest x-ray and labs are all normal or close to normal. There is no signs of a UTI or pneumonia. A head CT shows no acute bleed. The chest x-ray is obscured over the level of the T-spine that is most pertinent but does not appear to show any obvious fractures. The ribs look intact. A CK and EKG will be added. She lives alone in her own home with her nephew living a few blocks away. His name is Joaquim Angelo. Her [id number] is his other sibling who actually lives in [place]. She was quite combative in the CT scanner, requiring morphine and fentanyl for sedation. 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 Discharge Providers Date of admission: 08/12/18 17:17 Discharge Date: 08/17/18 Primary care physician: Evie Kim PA-C Consults: 08/12/18 17:22 Consult to Discharge Planning Routine Comment: Consult to Occupational Therapy Evaluate & Treat Comment: Physician Instructions: Evaluate and treat Consult to Physical Therapy Evaluate & Treat Comment: Physician Instructions: Evaluate and Treat 08/12/18 18:13 Consult to Credit Or Loans Officer Routine Comment: dementia. lives alone. multiple falls 08/13/18 05:27 Consult to Respiratory Therapy Evaluate & Treat Comment: Physician Instructions: Evaluate and treat 08/13/18 09:36 Consult to Speech Therapy Evaluate & Treat Comment: Physician Instructions: Evaluate and treat 08/15/18 07:54 Consult to Orthopedic Surgery Routine Comment: Consulting Provider: Francis Serrano Reason for consultation: Compression fractures Has provider been notified: Yes 08/17/18 00:39 Consult to Respiratory Therapy Evaluate & Treat Comment: Physician Instructions: Evaluate and treat Discharge provider: Elaine West DO Summary Discharge Diagnosis: 1. Acute Klebsiella UTI, present on admission. Resolving. 2. Acute metabolic encephalopathy, on chronic vascular dementia without behavioral disturbance, present on admission. Metabolic encephalopathy resolved. 3. Acute on chronic back pain due to compression fractures, secondary to trauma from ground level fall and osteoporosis, present on admission. Stable. 4. Aortic stenosis, chronic, present on admission. Presumed stable. 5. Paroxysmal atrial fibrillation, chronic, present on admission. Stable. 6. COPD with chronic respiratory failure, oxygen dependent, present on admission. Stable. 7. Atrial septal aneurysm, chronic, present on admission. Stable. 8. Hypertension, chronic, present on admission. Stable. 9. Hyperlipidemia, chronic, present on admission. Stable. 10. Macular degeneration, chronic, present on admission. Stable. 11. Chronic protein calorie malnutrition in the setting of chronic illness, present on admission. Stable. Hospital Course: Meghna Sheldon is an 82-year-old female with a past medical history significant for vascular dementia, hypertension, hyperlipidemia, atrial septal aneurysm, atrial fibrillation, and COPD on nocturnal oxygen who presented after possible ground level fall with left flank pain. 1. Acute Klebsiella UTI, present on admission. Resolving. -Patient presented with left flank pain and increased confusion from baseline. -Urinalysis grew Klebsiella resistant only to ampicillin and continued ceftriaxone 2 g daily x 5 days and discharged with cefuroxime 500 mg twice daily for 2 days to complete 7 day course. 2. Acute metabolic encephalopathy, on chronic vascular dementia without behavioral disturbance, present on admission. Metabolic encephalopathy resolved. -Per patient's nephew and niece in law, the patient was initially more confused than usual. Confusion has now resolved. Per family, her mentation is back to baseline and she continues to be alert and oriented to person only. -SLUMS questionnaire scored a +12/20 indicative of moderate to severe dementia. -Continued Seroquel 12.5 mg daily at bedtime for behavioral psychological symptoms of dementia. Discontinued daytime Seroquel as patient is mildly drowsy. -Patients niece and DPCHRIS Nya, indicates goals of care to be rehabilitation and if the patient continues to decline then they would change goals of care to hospice and/or comfort care. 3. Acute on chronic back pain due to compression fractures, secondary to trauma from ground level fall and osteoporosis, present on admission. Stable. -Patient recently endured a ground level fall. -Creatinine kinase was normal at 38. EKG demonstrated atrial fibrillation without acute ischemic changes. -Thoracic and lumbar spine x-rays demonstrated T9, T12 and L1. MRI was pursued and patient was unable to lie flat, therefore, it was canceled. Patient does not tolerate lying flat due to kyphosis. Head of bed 30 degress at all times. -Continued PT and OT evaluation and treatment. -Continued Tylenol 650 mg 3 times daily scheduled for pain, methocarbamol 500 mg 4 times daily as needed for muscle spasm and hydrocodone 5-325 mg every 6 hours as needed for severe pain. -Consulted Orthopedic surgery and we appreciate their time, care of the patient, and recommendations. 4. Aortic stenosis, chronic, present on admission. Presumed stable. -Followed by Cardiology. 5. Paroxysmal atrial fibrillation, chronic, present on admission. Stable. -Followed by Cardiology. -Continued diltiazem CD 300 mg daily and aspirin 81 mg daily. 6. COPD with chronic respiratory failure, oxygen dependent, present on admission. Stable. -Patient is oxygen dependent and it is unclear her exact oxygen requirements at home. Continued supplemental oxygen as needed to maintain saturations 88-92%. She has been requiring 2-3 L continuous during hospitalizatin. -Respiratory therapy was consulted and provided oxygen, nebs and acapella as needed. 7. Atrial septal aneurysm, chronic, present on admission. Stable. -Followed by Cardiology. 8. Hypertension, chronic, present on admission. Stable. -Continued diltiazem CD 300 mg daily and lisinopril 20 mg daily. 9. Hyperlipidemia, chronic, present on admission. Stable. -Treatment status unclear and there are no current lipid lowering medicines reported at home. 10. Macular degeneration, chronic, present on admission. Stable. -Low vision can certainly be related to falls. 11. Chronic protein calorie malnutrition in the setting of chronic illness, present on admission. Stable. -BMI 19. -Physical evidence of muscle atrophy and subcutaneous fat loss. -Dietitian was consulted and we appreciate their recs. Continued high calorie diet. Exam Vital Signs (past 8 hours): - 08/17/18 07:18 Temperature 97.5 F L Pulse Rate 57 L Respiratory Rate 18 Blood Pressure 146/48 H Pulse Oximetry 91 Oxygen Delivery Method Room Air Oxygen Flow Rate 1 Narrative Exam Narrative: General: Frail and thin elderly female in no acute distress, well-developed, patient is very sensitive and anxious/fearful but appropriately interactive. HEENT: Normocephalic, atraumatic. External ears without defect. Pupils equal, round, and reactive to light. Anicteric sclerae, moist conjunctivae, and no lid lag. Dry oral mucosa. Temporal wasting. Neck: Supple with full range of motion. No lymphadenopathy or thyromegaly. Cardiovascular: Irregularly irregular with grade 2/6 systolic murmur. No rubs or gallops appreciated. Pulmonary: Clear to auscultation bilaterally with scattered rhonchi. No wheeze or crackles. Normal respiratory effort with no use of accessory muscles. Abdomen: Soft, scaphoid, bowel sounds present, nontender, nondistended. No hepatosplenomegaly or masses appreciated. Extremities: No clubbing, cyanosis, or edema. Pinpoint tenderness over mid thoracic area likely T9 compression fracture. Skin: Normal temperature, turgor, and texture; no rash, ulcers, or subcutaneous nodules appreciated. Neurological: Cranial nerves grossly intact. Psychiatric: Anxious/fearful mood and normal affect. Confusion resolved. Patient appears to be at baseline mentation with mild to moderate dementia. Alert and oriented to person only. Objective Labs Result Diagrams: 08/16/18 15:39 08/17/18 07:05 Labs: Laboratory Results - last 24 hr 08/16/18 08/16/18 08/16/18 10:58 15:39 15:39 WBC 10.5 RBC 4.34 Hgb 12.2 Hct 37.1 MCV 85.4 MCH 28.1 MCHC 32.8 RDW 16.7 H Plt Count 314 Neut % (Auto) 81.0 H Lymph % (Auto) 11.4 L Campbell % (Auto) 5.4 Eos % (Auto) 1.7 L Baso % (Auto) 0.5 Neut # (Auto) 8500 H Lymph # (Auto) 1200 Campbell # (Auto) 600 Eos # (Auto) 200 Baso # (Auto) 100 Sodium 130 L Potassium 3.3 L Chloride 92 L Carbon Dioxide 30 BUN 13 Creatinine 0.50 L Estimated GFR > 60.0 BUN/Creatinine Ratio 26.0 H Glucose 124 H Calcium 7.8 L Magnesium Total Bilirubin 0.3 AST 28 ALT 30 Alkaline Phosphatase 77 Total Protein 5.4 L Albumin 3.0 L Globulin 2.4 Albumin/Globulin Ratio 1.3 C. difficile Tox (PCR) Negative for c. diff 08/16/18 08/17/18 08/17/18 15:39 07:05 07:05 WBC RBC Hgb Hct MCV MCH MCHC RDW Plt Count Neut % (Auto) Lymph % (Auto) Campbell % (Auto) Eos % (Auto) Baso % (Auto) Neut # (Auto) Lymph # (Auto) Campbell # (Auto) Eos # (Auto) Baso # (Auto) Sodium 130 L Potassium 3.7 Chloride 94 L Carbon Dioxide 31 BUN 16 Creatinine 0.50 L Estimated GFR > 60.0 BUN/Creatinine Ratio 32.0 H Glucose 85 Calcium 8.1 L Magnesium 1.4 L 1.9 Total Bilirubin AST ALT Alkaline Phosphatase Total Protein Albumin Globulin Albumin/Globulin Ratio C. difficile Tox (PCR) Discharge Plan Discharge Plan Patient Disposition: SNF Transfer to: [facility] Under care of provider: Dr. Nj Transportation: Facility vehicle I certify the postop hospital usp care is medically necessary on a continuing basis for any conditions for which he/ she received care during this hospitalization.: Yes The receiving facility has agreed to accept transfer and provide medical treatment.: Yes Discharge Med Rec/Prescriptions Prescriptions: New quetiapine 25 mg Tablet 12.5 mg PO BEDTIME Qty: 30 RF: 0 methocarbamol 500 mg Tablet 500 mg PO QID PRN (Reason: Muscle Spasm) Qty: 30 RF: 0 sennosides [senna] 8.6 mg Tablet 17.2 mg PO DAILY PRN (Reason: Constipation) Qty: 30 RF: 0 polyethylene glycol 3350 17 gram Powder In Packet 17 gm PO DAILY PRN (Reason: Constipation) Qty: 1 RF: 0 hydrocodone-acetaminophen 5-325 mg Tablet 1 tab PO Q4HR Qty: 30 RF: 0 calcitonin (salmon) 200 unit/actuation Barnhart,Non-Aerosol 1 spry Intranasal DAILY 30 Days Qty: 3.7 RF: 0 docusate sodium 100 mg Capsule 100 mg PO BID PRN (Reason: Constipation) Qty: 30 RF: 0 guaifenesin 600 mg Tablet Extended Release 12hr 1,200 mg PO BID Qty: 10 RF: 0 cefuroxime axetil 500 mg tablet 500 mg PO Q12H 2 Days Qty: 4 RF: 0 ipratropium-albuterol 0.5 mg-3 mg(2.5 mg base)/3 mL Solution For Nebulization 3 ml INH RTQ4HR PRN (Reason: Shortness Of Breath) Qty: 90 RF: 0 Continued aspirin 81 MG tablet,chewable 81 mg PO DAILY Qty: 0 RF: 0 diltiazem HCl 300 mg capsule,extended release 24hr 300 mg PO DAILY Qty: 90 RF: 1 chlorthalidone 25 mg Tablet 12.5 mg PO DAILY RF: 0 lisinopril 40 mg Tablet 20 mg PO DAILY RF: 0 Follow up/Referrals: Evie Kim PA-C [Primary Care Provider] - Discharge Health Status Brief summary of current health status: The patient is an 82-year-old female who was admitted for acute onset back pain secondary to a T9 compression fracture and metabolic encephalopathy secondary to Klebsiella UTI. Metabolic encephalopathy has resolved. She has moderate to severe dementia at baseline without behavioral disturbance. Her UTI has 2 days left for antibiotic treatment. She needs continued rehabilitation. Multidrug resistant organism: No MDRO Provider Discharge Instructions Diet: Diet as Tolerated, Low-fat, Low-sodium and Low-cholesterol Liquid consistency: Normal/Thin Diet comment: Keep head of bed 30 degrees at all times Activity: Activity as tolerated with FWW, PT and OT. Does not tolerate being laid flat due to kyphosis and compression fractures. Special Rehabilitation Services Rehab type: Physical therapy, Occupational therapy and Speech therapy Visit Report/Discharge Packet Instructions: DI for Urinary Tract Infection (UTI), How to Prevent Falls Discharge Data Primary Care Provider: Evie Kim Attending Provider: Yesi Fitzpatrick Admit Date/Time: 08/12/18 17:17 Quality VTE Deep Vein Thrombosis/Pulmonary Embolism Present on Admission: No
[2018-08-17 08:34] LABS: Procalcitonin < 0.05 ng/mL (<0.5)
[2018-08-17] MEDS: POTASSIUM CHLORIDE 40 MEQ in SODIUM CHLORIDE 0.9% 500 ML 130 ML IV (08:53)
[2018-08-17] MEDS: guaiFENesin ER 600 MG TAB 1200 MG PO (08:54)
[2018-08-17] MEDS: FUROSEMIDE 20 MG/2 ML VIAL 10 MG IV (08:54)
[2018-08-17] MEDS: ACETAMINOPHEN 325 MG TABLET 650 MG PO (08:58)
[2018-08-17] MEDS: ASPIRIN EC 81 MG TABLET PO (08:59)
[2018-08-17] MEDS: CHLORTHALIDONE 25 MG TABLET 12.5 MG PO (08:59)
[2018-08-17] MEDS: LISINOPRIL 20 MG TABLET PO (09:00)
[2018-08-17] MEDS: dilTIAZem CD 120 MG CAP PO (09:01)
[2018-08-17] MEDS: CALCITONIN,SALMON, NASAL SPRAY 1 SPRAYS NASAL (09:08)
[2018-08-17] MEDS: CEFTRIAXONE 2 GM/50 ML FROZ.PIGGY IV (09:10)
--- NOTE | 2018-08-17 10:08 | OT.IP.TRT ---
Current Diagnoses Urinary tract infection, site not specified (08/12/18) Occupational Therapy Treatment Note M2 OT-IP Current Condition Start: 08/13/18 11:55 Freq: Status: Active Protocol: Document 08/13/18 14:15 [facility] (Rec: 08/13/18 14:30 [facility] [id number]) Occupational Therapy Current Condition Current Condition Evaluation Date 08/13/18 Treatment Diagnosis GLF, UTI, metabooic enceph Diagnosis Onset Date 08/12/18 Weight Bearing Status Weight Bearing Status Weight Bear as Tolerated M3 OT- IP Subjective and Pain Start: 08/13/18 11:55 Freq: Status: Active Protocol: Document 08/17/18 09:56 [facility] (Rec: 08/17/18 10:07 [facility] [id number]) OT- Subjective Occupational Therapy Visit Type Type Treatment Note Visit Start Time 09:03 Visit Stop Time 09:28 Total Visit Minutes 25 Occupational Therapy Visit Comments Patient Comments Pt needing lots of encouragement to try to get up and use the BSC. OT Pain Assessment Pain When Pain Assessed At Rest Pain Present Pain Present Denied Pain M4 OT- IP ADL's Start: 08/13/18 11:55 Freq: Status: Active Protocol: Document 08/17/18 09:56 [facility] (Rec: 08/17/18 10:07 [facility] [id number]) OT ADL-Dressing General Eval Lower Body Dressing Ability Maximum Assistance Areas Needing Assistance Underpants/Brief Socks Comments OT Dressing Comments Pt dependent for biref management needs. OT ADL-Toileting General Evaluation Toileting Ability Maximum Assistance Areas Needing Assistance Manage Clothing Perform Perineal Hygiene Comments OT Toileting Comments Pt given wipe to try to clean herself and wiping from back to front and therefore aid had to assist for completeness and assist for brief. M5 OT- IP IADL's Start: 08/13/18 11:55 Freq: Status: Active Protocol: Document 08/13/18 14:15 [facility] (Rec: 08/13/18 14:30 [facility] [id number]) OT-Instrumental Activities of Daily Living Medication Management Medication Management Comments Pt states takes her own medications but unable to recall which ones. Money Management Money Management Comments Pt states the bank pays her bills but unable to elaborate on how. Meal Preparation Meal Preparation Comments Pt states recent has not been able to eat or have a decent meal. M6 OT- IP Functional Cognition Start: 08/13/18 11:55 Freq: Status: Active Protocol: Document 08/17/18 09:56 [facility] (Rec: 08/17/18 10:07 [facility] [id number]) Cognitive Factors Limiting Selfcare Function Cognitive Ability Level of Alertness Alert Patient Orientation Name Place Attention Span Ability Capable of Focused Attention Capable of Sustained Attention Ability to Follow Commands Able to Follow One Step Commands Memory Description Short Term Impaired Safety Awareness Underestimates Need for Assistance Problem Solving Ability Unable to Identify Errors Needs Assist to Identify Solutions Executive Function Ability Unable to Make Plans Unable to Organize Plans Unable to Remember Details Cognitive Comments Cognitive Assessment Comments Pt needs step by step commands . Pt having difficulty to think through /sequence through tasks. Pt states, you tell me what to do, I just do not know. M7 OT- IP Mobility and Balance Start: 08/13/18 11:55 Freq: Status: Active Protocol: Document 08/17/18 09:56 [facility] (Rec: 08/17/18 10:07 [facility] [id number]) OT- Bed Mobility Assessment Rolling Type of Rolling Roll to Left Supine to Sit Supine to Sit Assist Moderate Assistance 1 Person Assistance Scooting Scooting to Edge of Bed Standby Assistance 1 Person Assistance OT-Transfer Assessment Sit to and From Stand Sit to and from Stand Minimal Assistance 1 Person Assistance Transfers Transfer Ability Minimal Assistance Technique Transfer Destination Bedside Commode Chair Devices Transfer Assistive Devices Gait Belt Front Wheeled Walker Comments Mobility Comments Pt much improved with bed mobility now MODA and up with FWW HAMILTON now, mainly for balance and safety awareness. OT- Balance Assessment Sitting Balance and Reactions Static Sitting Balance Ability Normal Dynamic Sitting Balance Ability Good Standing Balance and Reactions Static Standing Balance Ability Fair M8 OT- IP Objective Assessments Start: 08/13/18 11:55 Freq: Status: Active Protocol: Document 08/13/18 14:15 [facility] (Rec: 08/13/18 14:30 [facility] [id number]) OT Gross Range of Motion Upper Extremity Range of Motion ROM Impairments WFL from elbow to distal unable to assess for shoulder at this time. M9 OT- IP Assessment and Plan Start: 08/13/18 11:55 Freq: Status: Active Protocol: Document 08/15/18 12:40 [facility] (Rec: 08/15/18 12:58 [facility] [id number]) OT Summary Assessment and Plan Potential Rehabilitation Potential Fair Analytic Complexity at Evaluation Low Summary OT Impairments Strength Balance Functional Cognition Functional Mobility Dressing Toileting Bathing Toilet Transfers Shower Transfers Progress Towards Goals Slow Progress due to Medical Issues Slow Progress due to Activity Tolerance Slow Progress due to Cognition Assessment Summary Pt doing better with mobility needs and able to identify needs better as well. Pt will benefit from skilled rehab initially and then afterwards will need to go have either / assist or facility with higher care. Goals Self-Feeding Goal Independent Grooming Goal Standby Assistance Dressing Goal Minimal Assistance Toileting Goal Minimal Assistance Bathing Goal Moderate Assistance Toilet Transfer Goal Standby Assistance Shower Transfer Goal Standby Assistance Patient/Caregiver Education Goal Caregiver Independent Assisting Patient Days to Meet Goals 6 Frequency of Treatment Frequency Of Treatment Once a Day Treatment Plan OT Treatment Plan ADL Training Functional Cognition Training Functional Mobility Patient/Family Education Discharge Planning Other Treatment Recommendations and Next Stand from grooming, LB Treatment Focus dressing Discharge Recommendations OT Discharge Recommendations SNF Rehab Home Equipment Needs defer to SNF
[2018-08-17 10:29] VITALS: O2SAT 91
--- NOTE | 2018-08-17 10:37 | PT.IPTN ---
Current Diagnoses Urinary tract infection, site not specified (08/12/18) Physical Therapy Treatment Note M2 PT-IP Current Condition Start: 08/13/18 11:09 Freq: NEEDED Status: Active Protocol: Document 08/13/18 10:50 RS (Rec: 08/13/18 11:31 RS [id number]) Physical Therapy Current Condition Current Condition Evaluation Date 08/13/18 Treatment Diagnosis impaired mobility Onset Date 08/12/18 M3 PT-IP Subjective Start: 08/13/18 11:09 Freq: NEEDED Status: Active Protocol: Document 08/17/18 10:37 AB (Rec: 08/17/18 11:37 AB [id number]) Subjective Physical Therapy Visit Type Type Treatment Note Visit Start Time 10:37 Visit Stop Time 10:53 Total Visit Minutes 16 Number of [employer] Visits 0 Physical Therapy Visit Comments Patient Comments NAC requested assistance for pt's transfers/toileting needs . M4 PT-IP Mobility and Gait Start: 08/13/18 11:09 Freq: NEEDED Status: Active Protocol: Document 08/17/18 10:37 AB (Rec: 08/17/18 11:37 AB [id number]) PT-Transfer Assessment Sit to and From Stand Sit to and from Stand Contact Guard Assistance Equipment Transfer Assistive Device Gait Belt Front Wheeled Walker Transfers Transfer Destination Bedside Commode Transfer Technique Stand Step Pivot Transfer Ability Level of Assist Contact Guard Assistance 1 Person Assistance Use of Upper Extremities Comments Mobility Comments pt completed sit to stand from chair CGA and max cues and was able to complete stand step transfer using FWW CGA. pt was able to maintain standing using FWW for support CGA while NAC assisted pt with hygiene care and brief change. pt completed ~ 2 standing activities for ADLs and then transfer back to chair using FWW with pt completing with CGA. pt stated that she is tired and want to rest and not able to ambulate at this time. positioned pt in chair. call light and table within reach. chair alarm on. M5 PT-IP Objective Assessments Start: 08/13/18 11:09 Freq: NEEDED Status: Active Protocol: Document 08/13/18 10:50 RS (Rec: 08/13/18 11:31 RS [id number]) Gross Range of Motion Upper Extremity ROM Assessment Within Functional Limits Lower Extremity ROM Assessment Within Functional Limits Impairments Pt able to move through normal ROM while lying in sidelying, no reported change in pain levels. Strength Comments Strength Comments BLE not formally assessed but at least 2+/5 observed M6 PT-IP Treatment Start: 08/13/18 11:09 Freq: NEEDED Status: Active Protocol: Document 08/17/18 10:37 AB (Rec: 08/17/18 11:37 AB [id number]) Physical Therapy Treatment Education Education Provided Safety M7 PT-IP Assessment and Plan Start: 08/13/18 11:09 Freq: NEEDED Status: Active Protocol: Document 08/17/18 10:37 AB (Rec: 08/17/18 11:37 AB [id number]) PT Summary Assessment and Plan Potential Rehabilitation Potential Fair Summary Impairments Pain Strength Balance Cognition Bed Mobility Transfers Gait Activity Tolerance Progress Towards Goals Slow Progress - Other Assessment Summary pt requires one person assist with mobility and max cues for safety. pt with decrearse cognitive level affecting mobility and level of assistance. Pt also demonstrated decrease activity tolerance affecting functional independence. Goals Bed Mobility Goal Independent Transfer Goal Independent Gait Goal Independent Gait Distance 50 Days to Meet Goals 4 Frequency of Treatment Frequency Of Treatment Once a Day Treatment Plan Physical Therapy Treatment Plan Bed Mobility Training Transfer Training Gait Training Therapeutic Exercise Balance Retraining Discharge Planning Hot or Cold Pack Neuromuscular Re-ed Coordination Retraining Manual Therapy Other Recommendations and Next Treatment ambulation Focus Recommendations To Nursing Amount of Assist Needed 1 Person Assist Discharge Recommendations PT Discharge Recommendations SNF Rehab
[2018-08-17 11:03] VITALS: BP 136/57; PULSE 69; RESP 16; TEMP 36.3; O2SAT 94
--- NOTE | 2018-08-17 13:42 | P.DS_ITS ---
History of Present Illness Date Patient Seen: 08/12/18 Chief complaint: Back pain Narrative: Written by Dr. Fitzpatrick: This is an 82-year-old female with a ground level fall early this morning. She has vascular dementia and so her memory of the events this morning is variable. She says different things to different people. She told her nephew's that she did not fall but she told the staff in the emergency department that she did fall. She pressed her Life Alert button at 9:00 a.m.. When relatives arrived she was sitting in a chair. If she did fall it appears to have been in the middle the night at some point, apparently getting herself into the chair on her own. She was experiencing left-sided flank pain radiating to the mid thoracic spine. She is not tender and does not have any pain when I see her. She will be observed overnight to clarify the cause of this pain as it was quite disabling, preventing her from going home, and to evaluate with PT and OT as to what can be done for her repeated falls. She is very frail appearing, looks malnourished and cachectic. She apparently ?fell out of bed? 2 days ago. She does not drink alcohol or smoke currently. Her workup including chest x-ray and labs are all normal or close to normal. There is no signs of a UTI or p neumonia. A head CT shows no acute bleed. The chest x-ray is obscured over the level of the T-spine that is most pertinent but does not appear to show any obvious fractures. The ribs look intact. A CK and EKG will be added. She lives alone in her own home with her nephew living a few blocks away. His name is Joaquim Angelo. Her [id number] is his other sibling who actually lives in [place]. She was quite combative in the CT scanner, requiring morphine and fentanyl for sedation. 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 Discharge Providers Date of admission: 08/12/18 17:17 Discharge Date: 08/17/18 Primary care physician: Evie Kim PA-C Consults: 08/12/18 17:22 Consult to Discharge Planning Routine Comment: Consult to Occupational Therapy Evaluate & Treat Comment: Physician Instructions: Evaluate and treat Consult to Physical Therapy Evaluate & Treat Comment: Physician Instructions: Evaluate and Treat 08/12/18 18:13 Consult to [employer] Routine Comment: dementia. lives alone. multiple falls 08/13/18 05:27 Consult to Respiratory Therapy Evaluate & Treat Comment: Physician Instructions: Evaluate and treat 08/13/18 09:36 Consult to Speech Therapy Evaluate & Treat Comment: Physician Instructions: Evaluate and treat 08/15/18 07:54 Consult to Orthopedic Surgery Routine Comment: Consulting Provider: Francis Serrano Reason for consultation: Compression fractures Has provider been notified: Yes 08/17/18 00:39 Consult to Respiratory Therapy Evaluate & Treat Comment: Physician Instructions: Evaluate and treat Discharge provider: Elaine West DO Summary Discharge Diagnosis: 1. Acute Klebsiella UTI, present on admission. Resolving. 2. Acute metabolic encephalopathy, on chronic vascular dementia without behavioral disturbance, present on admission. Metabolic encephalopathy resolved. 3. Acute on chronic back pain due to compression fractures, secondary to trauma from ground level fall and osteoporosis, present on admission. Stable. 4. Aortic stenosis, chronic, present on admission. Presumed stable. 5. Paroxysmal atrial fibrillation, chronic, present on admission. Stable. 6. COPD with chronic respiratory failure, oxygen dependent, present on admission . Stable. 7. Atrial septal aneurysm, chronic, present on admission. Stable. 8. Hypertension, chronic, present on admission. Stable. 9. Hyperlipidemia, chronic, present on admission. Stable. 10. Macular degeneration, chronic, present on admission. Stable. 11. Chronic protein calorie malnutrition in the setting of chronic illness, present on admission. Stable. Hospital Course: Meghna Sheldon is an 82-year-old female with a past medical history significant for vascular dementia, hypertension, hyperlipidemia, atrial septal aneurysm, atrial fibrillation, and COPD on nocturnal oxygen who presented after possible ground level fall with left flank pain. 1. Acute Klebsiella UTI, present on admission. Resolving. -Patient presented with left flank pain and increased confusion from baseline. -Urinalysis grew Klebsiella resistant only to ampicillin and continued ceftriaxone 2 g daily x 5 days and discharged with cefuroxime 500 mg twice daily for 2 days to complete 7 day course. 2. Acute metabolic encephalopathy, on chronic vascular dementia without behavioral disturbance, present on admission. Metabolic encephalopathy resolved. -Per patient's nephew and niece in law, the patient was initially more confused than usual. Confusion has now resolved. Per family, her mentation is back to baseline and she continues to be alert and oriented to person only. -SLUMS questionnaire scored a +12/20 indicative of moderate to severe dementia. -Continued Seroquel 12.5 mg daily at bedtime for behavioral psychological symptoms of dementia. Discontinued daytime Seroquel as patient is mildly drowsy. -Patients niece and DPOA Nya, indicates goals of care to be rehabilitation and if the patient continues to decline then they would change goals of care to hospice and/or comfort care. 3. Acute on chronic back pain due to compression fractures, secondary to trauma from ground level fall and osteoporosis, present on admission. Stable. -Patient recently endured a ground level fall. -Creatinine kinase was normal at 38. EKG demonstrated atrial fibrillation without acute ischemic changes. -Thoracic and lumbar spine x-rays demonstrated T9, T12 and L1. MRI was pursued and patient was unable to lie flat, therefore, it was canceled. Patient does not tolerate lying flat due to kyphosis. Head of bed 30 degress at all times. -Continued PT and OT evaluation and treatment. -Continued Tylenol 650 mg 3 times daily scheduled for pain, methocarbamol 500 mg 4 times daily as needed for muscle spasm and hydrocodone 5-325 mg every 6 hours as needed for severe pain. -Consulted Orthopedic surgery and we appreciate their time, care of the patient, and recommendations. 4. Aortic stenosis, chronic, present on admission. Presumed stable. -Followed by Cardiology. 5. Paroxysmal atrial fibrillation, chronic, present on admission. Stable. -Followed by Cardiology. -Continued diltiazem CD 300 mg daily and aspirin 81 mg daily. 6. COPD with chronic respiratory failure, oxygen dependent, present on admission. Stable. -Patient is oxygen dependent and it is unclear her exact oxygen requirements at home. Continued supplemental oxygen as needed to maintain saturations 88-92%. She has been requiring 2-3 L continuous during hospitalizatin. -Respiratory therapy was consulted and provided oxygen, nebs and acapella as needed. 7. Atrial septal aneurysm, chronic, present on admission. Stable. -Followed by Cardiology. 8. Hypertension, chronic, present on admission. Stable. -Continued diltiazem CD 300 mg daily and lisinopril 20 mg daily. 9. Hyperlipidemia, chronic, present on admission. Stable. -Treatment status unclear and there are no current lipid lowering medicines reported at home. 10. Macular degeneration, chronic, present on admission. Stable. -Low vision can certainly be related to falls. 11. Chronic protein calorie malnutrition in the setting of chronic illness, present on admission. Stable. -BMI 19. -Physical evidence of muscle atrophy and subcutaneous fat loss. -Dietitian was consulted and we appreciate their recs. Continued high calorie diet. Exam Vital Signs (past 8 hours): - 08/17/18 07:18 Temperature 97.5 F L Pulse Rate 57 L Respiratory Rate 18 Blood Pressure 146/48 H Pulse Oximetry 91 Oxygen Delivery Method Room Air Oxygen Flow Rate 1 Narrative Exam Narrative: General: Frail and thin elderly female in no acute distress, well-developed, patient is very sensitive and anxious/fearful but appropriately interactive. HEENT: Normocephalic, atraumatic. External ears without defect. Pupils equal, round, and reactive to light. Anicteric sclerae, moist conjunctivae, and no lid lag. Dry oral mucosa. Temporal wasting. Neck: Supple with full range of motion. No lymphadenopathy or thyromegaly. Cardiovascular: Irregularly irregular with grade 2/6 systolic murmur. No rubs or gallops appreciated. Pulmonary: Clear to auscultation bilaterally with scattered rhonchi. No wheeze or crackles. Normal respiratory effort with no use of accessory muscles. Abdomen: Soft, scaphoid, bowel sounds present, nontender, nondistended. No hepatosplenomegaly or masses appreciated. Extremities: No clubbing, cyanosis, or edema. Pinpoint tenderness over mid thoracic area likely T9 compression fracture. Skin: Normal temperature, turgor, and texture; no rash, ulcers, or subcutaneous nodules appreciated. Neurological: Cranial nerves grossly intact. Psychiatric: Anxious/fearful mood and normal affect. Confusion resolved. Patient appears to be at baseline mentation with mild to moderate dementia. Alert and oriented to person only. Objective Labs Result Diagrams: 08/16/18 15:39 08/17/18 07:05 Labs: Laboratory Results - last 24 hr 08/16/18 08/16/18 08/16/18 10:58 15:39 15:39 WBC 10.5 RBC 4.34 Hgb 12.2 Hct 37.1 MCV 85.4 MCH 28.1 MCHC 32.8 RDW 16.7 H Plt Count 314 Neut % (Auto) 81.0 H Lymph % (Auto) 11.4 L [place] % (Auto) 5.4 Eos % (Auto) 1.7 L Baso % (Auto) 0.5 Neut # (Auto) 8500 H Lymph # (Auto) 1200 [place] # (Auto) 600 Eos # (Auto) 200 Baso # (Auto) 100 Sodium 130 L Potassium 3.3 L Chloride 92 L Carbon Dioxide 30 BUN 13 Creatinine 0.50 L Estimated GFR > 60.0 BUN/Creatinine Ratio 26.0 H Glucose 124 H Calcium 7.8 L Magnesium Total Bilirubin 0.3 AST 28 ALT 30 Alkaline Phosphatase 77 Total Protein 5.4 L Albumin 3.0 L Globulin 2.4 Albumin/Globulin Ratio 1.3 C. difficile Tox (PCR) Negative for c. diff 08/16/18 08/17/18 08/17/18 15:39 07:05 07:05 WBC RBC Hgb Hct MCV MCH MCHC RDW Plt Count Neut % (Auto) Lymph % (Auto) [place] % (Auto) Eos % (Auto) Baso % (Auto) Neut # (Auto) Lymph # (Auto) [place] # (Auto) Eos # (Auto) Baso # (Auto) Sodium 130 L Potassium 3.7 Chloride 94 L Carbon Dioxide 31 BUN 16 Creatinine 0.50 L Estimated GFR > 60.0 BUN/Creatinine Ratio 32.0 H Glucose 85 Calcium 8.1 L Magnesium 1.4 L 1.9 Total Bilirubin AST ALT Alkaline Phosphatase Total Protein Albumin Globulin Albumin/Globulin Ratio C. difficile Tox (PCR) Discharge Plan Discharge Plan Patient Disposition: SNF Transfer to: [facility] Under care of provider: Dr. Nj Transportation: Facility vehicle I certify the postop hospital alf care is medically necessary on a continuing basis for any conditions for which he/ she received care during this hospitalization.: Yes The receiving facility has agreed to accept transfer and provide medical treatment.: Yes Discharge Med Rec/Prescriptions Prescriptions: New quetiapine 25 mg Tablet 12.5 mg PO BEDTIME Qty: 30 RF: 0 methocarbamol 500 mg Tablet 500 mg PO QID PRN (Reason: Muscle Spasm) Qty: 30 RF: 0 sennosides [senna] 8.6 mg Tablet 17.2 mg PO DAILY PRN (Reason: Constipation) Qty: 30 RF: 0 polyethylene glycol 3350 17 gram Powder In Packet 17 gm PO DAILY PRN (Reason: Constipation) Qty: 1 RF: 0 hydrocodone-acetaminophen 5-325 mg Tablet 1 tab PO Q4HR Qty: 30 RF: 0 calcitonin (salmon) 200 unit/actuation [place],Non-Aerosol 1 spry Intranasal DAILY 30 Days Qty: 3.7 RF: 0 docusate sodium 100 mg Capsule 100 mg PO BID PRN (Reason: Constipation) Qty: 30 RF: 0 guaifenesin 600 mg Tablet Extended Release 12hr 1,200 mg PO BID Qty: 10 RF: 0 cefuroxime axetil 500 mg tablet 500 mg PO Q12H 2 Days Qty: 4 RF: 0 ipratropium-albuterol 0.5 mg-3 mg(2.5 mg base)/3 mL Solution For Nebulization 3 ml INH RTQ4HR PRN (Reason: Shortness Of Breath) Qty: 90 RF: 0 Continued aspirin 81 MG tablet,chewable 81 mg PO DAILY Qty: 0 RF: 0 diltiazem HCl 300 mg capsule,extended release 24hr 300 mg PO DAILY Qty: 90 RF: 1 chlorthalidone 25 mg Tablet 12.5 mg PO DAILY RF: 0 lisinopril 40 mg Tablet 20 mg PO DAILY RF: 0 Follow up/Referrals: Evie Kim PA-C [Primary Care Provider] - Discharge Health Status Brief summary of current health status: The patient is an 82-year-old female who was admitted for acute onset back pain secondary to a T9 compression fracture and metabolic encephalopathy secondary to Klebsiella UTI. Metabolic encep halopathy has resolved. She has moderate to severe dementia at baseline without behavioral disturbance. Her UTI has 2 days left for antibiotic treatment. She needs continued rehabilitation. Multidrug resistant organism: No MDRO Provider Discharge Instructions Diet: Diet as Tolerated, Low-fat, Low-sodium and Low-cholesterol Liquid consistency: Normal/Thin Diet comment: Keep head of bed 30 degrees at all times Activity: Activity as tolerated with FWW, PT and OT. Does not tolerate being laid flat due to kyphosis and compression fractures. Special Rehabilitation Services Rehab type: Physical therapy, Occupational therapy and Speech therapy Visit Report/Discharge Packet Instructions: DI for Urinary Tract Infection (UTI), How to Prevent Falls Discharge Data Primary Care Provider: Evie Kim Attending Provider: Yesi Fitzpatrick Admit Date/Time: 08/12/18 17:17 Quality VTE Deep Vein Thrombosis/Pulmonary Embolism Present on Admission: No
--- NOTE | 2018-08-17 14:34 | CM.DPNOTE ---
DC Note: According to Emerita at [facility]; [facility] has given the auth for SNF stay so pt can be admitted to [facility] today. Cabulance has been arranged for 1430 p/u. Reviewed above w/pt's family, niece ad nephew; both remain agreeable to DCP. According to Dr West, family would appreciate information about Hospice service and contact information. Pt meets criteria for Hospice, according to Dr West and she might be appropriate for home w/hospice vs LONG-TERM w/hospice after rehab stay. Provided brochure for Hospice of the to family and strongly encouraged them to contact [facility] to request info visit and review additional questions and/or concerns. With assist from [facility], DC details arranged; completed and signed med list faxed to [facility] w/ completed PASRR. DC Summary also faxed once completed. Of note; Emerita at [facility] requested an updated PASRR to address new regulation from state re: use of Seroquel in nursing home facilities. Pt has been started on low dose of Seroquel since admission and will DC w/a scheduled bedtime dose of Seroquel. This DIRECTOR OF PUBLIC RELATIONS requested Dr West consider the following per request from Emerita: Diagnosis of BPSD, Behavioral and Psychological Symptoms of Dementia, requiring Seroquel to maintain management of these symptoms. Dr West agreeable. PASRR updated as Hospital Exempt and signed by Dr West. P: DC to [facility] today via cabulance, for rehab. Family member riding w/pt in w/c van to SNF, all aware and agreeable. NEELAM Maldonado
== END 2018-08-17 14:22 | DRG 689 ==
LOC: ED 17:13 → AC 08-13 08:43
PROVIDERS: Internal Medicine; Admitting Provider Family Medicine; Emergency Provider Nurse Practitioner Family; PCP Physician Assistant; Visit Provider Family Medicine
DX: N39.0 Urinary tract infection, site not specified (principal); G93.41 Metabolic encephalopathy; J96.10 Chronic respiratory failure, unspecified whether with hypoxia or hypercapnia; E46 Unspecified protein-calorie malnutrition; Z68.1 Body mass index [BMI] 19.9 or less, adult; M80.08XA Age-related osteoporosis with current pathological fracture, vertebra(e), initial encounter for fracture; I25.3 Aneurysm of heart; B96.1 Klebsiella pneumoniae [K. pneumoniae] as the cause of diseases classified elsewhere; J44.9 Chronic obstructive pulmonary disease, unspecified; Z99.81 Dependence on supplemental oxygen; R07.89 Other chest pain; F01.50 Vascular dementia, unspecified severity, without behavioral disturbance, psychotic disturbance, mood disturbance, and anxiety; Z91.81 History of falling; M80.08XD Age-related osteoporosis with current pathological fracture, vertebra(e), subsequent encounter for fracture with routine healing; I35.0 Nonrheumatic aortic (valve) stenosis; I48.0 Paroxysmal atrial fibrillation; E78.5 Hyperlipidemia, unspecified; H35.30 Unspecified macular degeneration
CPT/HCPCS: 36415; 70450; 71045; 72070; 72072; 72100; 80048; 80053; 80305; 81001; 82550; 83605; 83735; 83880; 84145; 84484; 85025; 87077; 87086; 87186; 87493; 92526; 92610; 93005; 93010; 94640; 94760; 96361; 96374; 96375; 96376; 97116; 97163; 97165; 97530; 97535; 99283; 99285; J0696; J1940; J2060; J2270; J2405; J3010; J3480